=== PATIENT | female | born 1940 | race Caucasian/White ===

== ENCOUNTER → 2020-07-08 17:48 | Outpatient (CLI) | payer MEDICARE, SELFPAY ==
--- NOTE | ~2020-07-08 | DEXA_ITS ---
Bone Density Report Name: Cherie Packer Age: 79 Sex: Female Ethnicity: White Date of : 1940 Indication: postmenopausal; screening for osteoporosis; height loss; Referring Provider: Tami Reese Study: Bone densitometry was performed. Exam Date: July 08, 2020 Accession number: [id number] Bone Density: Region BMD T-score Z-score Classification AP Spine (L1-L4) 1.048 0.0 2.7 Normal Femoral Neck (Left) 0.711 -1.2 1.1 Osteopenia Total Hip (Left) 0.880 -0.5 1.6 Normal Femoral Neck (Right) 0.715 -1.2 1.1 Osteopenia Total Hip (Right) 0.887 -0.5 1.6 Normal Total Hip Mean 0.884 -0.5 1.6 Normal World Health Organization criteria for BMD impression classify patients as: Normal (T-score at or above -1.0), Osteopenia (T-score between -1.0 and -2.5), or Osteoporosis (T-score at or below -2.5). 10-year Fracture Risk(1): Major Osteoporotic Fracture 12% Hip Fracture 2.5% Reported Risk Factors: [place] (), Neck BMD=0.715, BMI=30.0 (1) FRAX(R) Version 3.08. Fracture probability calculated for an untreated patient. Fracture probability may be lower if the patient has received treatment. Clinical Information Provided by Patient: Has used the following medications: Vitamin D Patient maximum height was 63.5 Menopause Age: 49 No regular weight bearing exercise Drinks caffeinated beverages Onset of menses at age 13 Number of children 2 Impression: The patient has low bone mass, based on the Left Femoral Neck T-score. The patient has an estimated ten-year risk of hip fracture of 2.5% and an estimated ten-year risk of major fracture of 12%, based on the WHO FRAX algorithm. Discussion: BONE DENSITY IS LOW AT ONE OR MORE SKELETAL SITES. This patient's lowest T-score is low at one or more skeletal sites. It meets the World Health Organization's (WHO) criteria for ?low bone mass? (T-score between -1.0 and -2.5). The patient's 10-year risk of fracture as calculated by FRAX is less than the threshold where pharmacological therapy is recommended by the National Osteoporosis Foundation (NOF). However, all treatment decisions require clinical judgment and consideration of individual patient factors, including patient preferences, comorbidities, previous drug use, risk factors not captured in the FRAX model (e.g., frailty, falls, vitamin D deficiency, increased bone turnover, interval significant decline in bone density) and possible under or overestimation of fracture risk by FRAX. The patient should follow a healthful lifestyle (good nutrition with adequate calcium and vitamin D, and appropriate weight-bearing exercise). Follow-Up: Consider repeating this study in 2 to 3 years to reassess this patient's status, or sooner if there is some new clinical indication. Reported by: [facility] on 07/08/2020 6:4
== END ==
PROVIDERS: PCP Internal Medicine; Visit Provider Nurse Practitioner
DX: Z78.0 Asymptomatic menopausal state (principal)
CPT/HCPCS: 77080

== ENCOUNTER → 2021-07-04 10:29 | Outpatient (CLI) | payer MEDICARE, SELFPAY ==
--- NOTE | ~2021-07-04 | XR_ITS ---
EXAMINATION: XR knee RT 3V DATE: 07/04/2021 11:14 INDICATION: Right knee pain. TECHNIQUE: 3 views of right knee including standing views were obtained. COMPARISON: Right knee radiographs 11/11/2017 FINDINGS: Bone alignment is normal. No fracture. There is moderate tricompartmental osteoarthritis. T here is chondrocalcinosis of the menisci. There is a small knee joint effusion. IMPRESSION: 1. Moderate right knee osteoarthritis. 2. Small right knee joint effusion. Reviewed, dictated and finalized at location A.
== END ==
PROVIDERS: PCP Internal Medicine; Visit Provider Nurse Practitioner
DX: M25.561 Pain in right knee (principal); M17.11 Unilateral primary osteoarthritis, right knee; M25.461 Effusion, right knee
CPT/HCPCS: 73562

== ENCOUNTER → 2021-07-11 10:37 | Outpatient (CLI) | payer MEDICARE, SELFPAY ==
--- NOTE | ~2021-07-11 | XR_ITS ---
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 No significant diver ticulum. There is a small reducible sliding hiatal hernia. No stricture, mucosal fold thickening, ulceration, intraluminal mass lesion or diverticulum of the es ophagus is detected. Tertiary contractions are observed. IMPRESSION: Occasional cricopharyngeus muscle dysfunction Small reducible sliding hiatal hernia Presbyesophagus Reviewed, dictated and finalized at Location A. Reviewed, dictated and finalized at location B.
== END ==
PROVIDERS: PCP Internal Medicine; Visit Provider Nurse Practitioner
DX: R13.10 Dysphagia, unspecified (principal); M25.561 Pain in right knee; K44.9 Diaphragmatic hernia without obstruction or gangrene; K22.89 Other specified disease of esophagus
CPT/HCPCS: 74220

== ENCOUNTER 2022-02-01 08:58 | Inpatient (IN) | payer MEDICARE, SELFPAY ==
[2022-02-01] VITALS (22 sets, daily range): BP systolic 94–133; BP diastolic 42–96; PULSE 70–98; RESP 16; TEMP 36.4–36.6; O2SAT 90–100; BMI 28.5
--- NOTE | ~2022-02-01 | XR_ITS ---
XR abdomen/kub 1V DATE: 02/05/2022 09:24 INDICATION: Small bowel obstruction TECHNIQUE: Portable supine AP view on 02/05/2022 at 0912 hours COMPARISON: 02/04/2022 small bowel follow-through 02/04/2022 KUB FINDINGS: NG tube is again noted in distal stomach. There is contrast material within the colon and multiple colonic diverticula. There are gaseous diste nded small bowel segments overlying the mid upper abdomen. IMPRESSION: NG tube in distal stomach Probable adynamic ileus Diverticulosis of the colon Reviewed, dictated and finalized at Location A. Reviewed, dictated and finalized at location B. F ENGINEER'S HELPER
--- NOTE | ~2022-02-01 | XR_ITS ---
XR abdomen/kub 1V 02/02/2022 06:28 Indication: Small bowel obstruction Procedure: KUB Comparison: 02/01/2022 Findings: Decreased small bowel dilation compared with prior study. NG tube in the stomach. There is residual contrast in the bladder. There are left basilar infiltrates which may represent atelectasis or pneumonia. Impression: 1: Improved small bowel distention compared with prior studies which may represent resolving ileus or obstruction. 2: Left basilar infiltrates, atelectasis versus pneumonia. Reviewed, dictated and finalized at location A. CH INSPECTOR Impression: 1: Improved small bowel distention compared with prior studies which may repres ent resolving ileus or obstruction. 2: Left basilar infiltrates, atelectasis versus pneumonia.
--- NOTE | ~2022-02-01 | CT_ITS ---
EXAMINATION: CT abdomen pelvis w con DATE: 02/01/2022 10:00 INDICATION: Left lower quadrant pain. Nausea and vomiting. TECHNIQUE: Computed tomography (CT) of the abdomen and pelvis was performed with 100 cc Omnipaque 350 intravenous contrast. The dose-length product was 411.21 mGy-cm. Automated exposure control and iter ative reconstruction technique were employed. COMPARISON: No prior studies for comparison. . FINDINGS: Lung bases are unremarkable. Heart size normal. No significant pleural or pericardial effus ion. Small amount of free fluid in the abdomen and pelvis. The liver, spleen, pancreas, left adrenal gland are unremarkable. 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 Gallbladder is present. There is colonic diverticulosis without evidence for diverticulitis. There aren't dilated fluid-fille d hyperemic small bowel loops throughout the abdomen with air-fluid levels and mild mesenteric edema, compatible with small bowel obstruction. There is transition to normal caliber small bowel in the ri ght mid abdomen, coronal image 52. There is atherosclerosis of the aorta. No free air is identified. No lymphadenopathy. Focal fatty infiltration of the liver near the falciform ligament. Gallbladder is present. IMPRESSION: 1. Small bowel obstruction with transition in the right mid abdomen, coronal image 52. Proximal small bowel is dilated, hyperemic with air-fluid levels. 2: Small amount of free fluid in the abdomen and pelvis. Reviewed, dictated and finalized at location A. ETL DEVELOPER IMPRESSION: 1. Small bowel obstruction with transition in the right mid abdomen, coronal im age 51. Proximal small bowel is dilated, hyperemic with air-fluid levels. 2: Small amount of free fluid in the abdomen and pelvis.
--- NOTE | ~2022-02-01 | XR_ITS ---
EXAMINATION: XR abdomen/kub 1V DATE: 02/04/2022 06:22 INDICATION: Small bowel obstruction TECHNIQUE: A supine view of the abdomen on 2 radiographs was obtained. COMPARISON: 02/03/2022 FINDINGS: Nasogastric tube tip in proximal side port in the stomach. Small amount of bowel gas scattered throug hout the abdomen and pelvis. Lung bases are clear. Mild lumbar levocurvature with moderate spondylosi s. IMPRESSION: 1. Nonspecific bowel gas pattern with small amounts of bowel gas scattered throughout the abdomen and pelvis. No dilated loops of gas-filled bowel. Reviewed, dictated and finalized at location A. ANIC/WELDER IMPRESSION: 1. Nonspecific bowel gas pattern with small amounts of bowel gas scattered thro ughout the abdomen and pelvis. No dilated loops of gas-filled bowel.
--- NOTE | ~2022-02-01 | XR_ITS ---
EXAMINATION: XR abdomen/kub 1V INDICATION: Small bowel obstruction TECHNIQUE: Supine views of the abdomen were obtained on 2 radiographs. COMPARISON: 02/05/2022 FINDINGS: The nasogastric tube is in the stomach. No definitely dilated loops of bowel are identified . Enteric contrast material is seen in the colon and in multiple colonic diverticula. IMPRESSION: 1. No definite dilated bowel identified. Reviewed, dictated and finalized at location A. LE VALVE OPERATOR
--- NOTE | ~2022-02-01 | XR_ITS ---
XR abdomen NG/feed tube rechec, XR abdomen NG/feed tube insert INDICATION: Evaluate NG tube position. TECHNIQUE: Limited KUB perform for evaluating NG tube . COMPARISON: 02/01/2022 FINDINGS: NG tube tip in the stomach. Visualized bowel gas pattern is unremarkable.No dilated small bowel, consistent with obstruction. Lung bases are unremarkable. IMPRESSION: 1: NG tube tip in the stomach. 2: Small bowel obstruction. Reviewed, dictated and finalized at location A. TAL MARKETING CONSULTANT IMPRESSION: 1: NG tube tip in the stomach. 2: Small bowel obstruction.
--- NOTE | ~2022-02-01 | XR_ITS ---
XR abdomen/kub 1V INDICATION: Evaluate NG tube position. TECHNIQUE: Limited KUB perform for evaluating NG tube . COMPARISON: 02/02/2022 FINDINGS: NG tube tip in the distal aspect of the stomach. Visualized bowel gas pattern is unremarka ble.Lung bases are unremarkable. IMPRESSION: 1: NG tube tip in the distal aspect of the stomach. Reviewed, dictated and finalized at location A. R FLOOR
--- NOTE | ~2022-02-01 | XR_ITS ---
SMALL BOWEL SERIES ONLY INDICATION: TECHNIQUE: Serial plain films and fluoroscopic spot films are performed following NG tube administrat ion of Gastrografin. COMPARISON: 02/04/2022 FINDINGS: Contrast was followed sequentially through the small bowel. The mucosal pattern is unremar kable. There are small bowel diverticula of the proximal small bowel. Small bowel pattern is consiste nt throughout without focal dilation or transition point. There is delayed transit of contrast to the colon of 4 hours.. IMPRESSION: 1: Nondilated uniform appearance to the small bowel with slow transit to the colon of 4 hours, ashish tible with ileus. Reviewed, dictated and finalized at location A. ECTOR PLATING IMPRESSION: 1: Nondilated uniform appearance to the small bowel with slow transit to the c olon of 4 hours, compatible with ileus.
[2022-02-01 09:22] LABS: Basophils Percent Auto 0.2 % (0.2-1.2); Eosinophils Absolute Auto 0.1 K/mm3 (0-0.3); Eosinophils Percent Auto 0.5 % (0-4.4); Hemoglobin 11.5 g/dL (12.0-15.0); Immature Granulocyte Percent A 0.8 % (0-0.5); Lymphocytes Absolute Auto 1.21 K/mm3 (0.9-3.2); Lymphocytes Percent Auto 9.8 % (18.3-44.2); Mean Corpuscular HGB Conc 32.9 g/dl (32-36); Mean Corpuscular Hemoglobin 28.5 pg (26-34); Mean Corpuscular Volume 86.8 fl (80-100); Mean Platelet Volume 10.6 fl (7.4-10.4); Monocytes Absolute Auto 0.5 K/mm3 (0.1-0.6); Monocytes Percent Auto 3.8 % (2.6-8.5); Neutrophils Absolute Auto 10.5 K/mm3 (1.3-6.7); Neutrophils Percent Auto 84.9 % (45.5-73.1); Platelet Count Result 278 k/mm3 (150-375); Red Blood Count 4.03 M/mm3 (4.2-5.4); Red Cell Distribution Width 13.2 % (11.5-14.5); White Blood Count 12.3 K/mm3 (4.5-10.0)
--- NOTE | 2022-02-01 09:24 | ED.ABDPAIN ---
HPI - Abdominal Pain General Chief Complaint: Abdominal Pain <SPEEDY Casarez Last Filed: 02/01/22 12:40> Stated Complaint: Abdominal pain, nausea <SPEEDY Casarez Last Filed: 02/01/22 12:40> Time Seen by Provider: 02/01/22 09:04 <SPEEDY Casarez Last Filed: 02/01/22 12:40> Source: patient <SPEEDY Casarez Last Filed: 02/01/22 12:40> Mode of arrival: ambulatory <SPEEDY Casarez Last Filed: 02/01/22 12:40> Limitations: no limitations <SPEEDY Casarez Last Filed: 02/01/22 12:40> History of Present Illness HPI narrative: Patient is an 81-year-old female who presents the ED with report of left-sided abdominal pain. Patient reports the pain began on Wednesday afternoon. She had nausea and vomiting and subjective fevers that day. She has had a decreased appetite and nausea and dry heaving since then. She tried taking TUMS w/o relief. She also reports constipation. She states it has been 1 week since she last had a bowel movement. She typically has a bowel movement every other day. She denies any rectal bleeding, urinary symptoms, cough, cold sx's, CP, SOB. <SPEEDY Casarez Last Filed: 02/01/22 12:40> Related Data Home Medications: Home Medications Medication Instructions Recorded Confirmed latanoprost 0.005 % eye drops 1 drop ophthalmic (eye) QPM 11/15/19 07/04/21 <SPEEDY Casarez Last Filed: 02/01/22 12:40> Allergies/Adverse Reactions: Allergies Allergy/AdvReac Type Severity Reaction Status Date / Time No Known Allergies Allergy Verified 07/14/21 08:52 <SPEEDY Casarez Last Filed: 02/01/22 12:40> Review of Systems Review of Systems: CONSTITUTIONAL: Denies fever, chills, or sweats. ENT: Denies rhinorrhea, congestion, sore throat. CARDIOVASCULAR: Denies chest pain. RESPIRATORY: Denies cough or dyspnea. GASTROINTESTINAL: Reports left-sided abdominal pain, nausea, vomiting, constipation. Denies rectal bleeding, diarrhea. GENITOURINARY: Denies dysuria or hematuria. 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 <Therese Langley PA-C - Last Filed: 02/01/22 12:40> Surgical History Surgical History: Surgical History (Updated 02/01/22 @ 09:30 by Therese Langley PA-C) No pertinent past surgical history <Therese Langley PA-C - Last Filed: 02/01/22 12:40> Family History Family History: Family History Mother Patient's mother is in good health Sibling Patient's sister is in good health Patient's brother is in good health Father Patient's father is <Therese Langley PA-C - Last Filed: 02/01/22 12:40> Social History Social History: Social History Smoking status: Never smoker Second hand tobacco smoke exposure: Yes Alcohol intake: never <Therese Langley PA-C - Last Filed: 02/01/22 12:40> Exam Narrative: GENERAL: Well appearing, well-nourished, non-toxic, in mild acute distress. HEAD: Normocephalic, atraumatic. NECK: Supple. No adenopathy, no masses. RESPIRATORY: Airway patent, respirations nonlabored. Clear to auscultation bilaterally, no rales, rhonchi, wheezing. CARDIOVASCULAR: Regular rate and rhythm, +murmur. Radial pulses 2+ and equal bilaterally. ABDOMINAL: Soft, diffuse tenderness to palp
[2022-02-01] MEDS: ONDANSETRON INJ 4 MG/2 ML VIAL IV PUSH ×2 (09:33→19:36)
[2022-02-01] MEDS: SODIUM CHLORIDE 0.9% IV 1,000 ML 999 ML IV CONT ×2 (09:33→10:58)
[2022-02-01 09:34] LABS: Alanine Aminotransferase 14 U/L (6-35); Albumin Level 4.2 g/dL (3.5-5.1); Alkaline Phosphatase 46 U/L (38-126); Anion Gap 10 mmol/L (8-16); Aspartate Amino Transferase 31 U/L (14-36); Bilirubin,Total 1.4 mg/dL (0.2-1.3); Blood Urea Nitrogen 29 mg/dL (7-17); Calcium 9.3 mg/dL (8.4-10.2); Carbon Dioxide 25 mmol/L (22-30); Chloride 101 mmol/L (98-107); Estimated CRCL calculation 29 ml/min; Estimated Glomerular Filt Rate 43; Glucose 172 mg/dL (65-110); Lipase 98 U/L (23-300); Potassium 4.3 mmol/L (3.4-5.0); Sodium 136 mmol/L (137-145)
[2022-02-01 10:18] LABS: Influenza A QL RT-PCR Negative (Negative); Influenza B QL RT-PCR Negative (Negative); SARS-CoV-2 RNA PCR Negative
[2022-02-01 11:00] LABS: Lactic Acid Reflex 1.1 mmol/L (0.7-2.0)
--- NOTE | 2022-02-01 12:53 | PM.IMHP ---
H&P: HPI History of Present Illness Date/Time: 02/01/22 12:53 Chief Complaint: Abdominal pain Narrative: This is an 81-year-old female patient who came to the emergency room with complaints of left-sided abdominal pain this pain started approximately Wednesday afternoon. She also had nausea and vomiting and subjective fevers that day. She is been having a decreased appetite with nausea and vomiting since then. She tried taking some Tums without relief. The patient stated that her abdomen was distended. The patient stated his been 1 week since she last had a bowel movement. She typically has a bowel movement every day. She denies any rectal bleeding at this time. Her white count is 12.3. H&H 11.5 and 35.0. Her BUN is 29 creatinine is 1.2. GFR is 43 with a baseline around 55. Her glucose is 172 today. Last A1c was 6.8 on 07/01/2021. The patient was found to be negative for influenza a B and COVID. An NG-tube was placed in the right nares. Abdominal pelvis CT was read as follows1. Small bowel obstruction with transition in the right mid abdomen, coronal image 52. Proximal small bowel is dilated, hyperemic with air-fluid levels. 2: Small amount of free fluid in the abdomen and pelvis. Surgery has been consulted. The patient initially who was placed in observation and then changed inpatient status on the date of service of 02/01/2022. Review of Systems Review of Systems: See HPI All systems reviewed & are unremarkable except as noted in HPI and below Constitutional: Constitutional: Reports as per HPI and Reports no additional constitutional complaints Eyes: Eyes: Reports as per HPI and Reports no additional eye complaints ENT: Reports system reviewed and no additional complaints, except as documented and Reports Normal hearing present Cardiovascular: Cardiovascular: Reports no additional cardiovascular complaints Respiratory: Respiratory: Reports no additional respiratory complaints and Reports no additional respiratory complaints Gastrointestinal: Gastrointestinal: Reports as per HPI and Reports no additional gastrointestinal complaints Musculoskeletal: Musculoskeletal: Reports no additional musculoskeletal complaints Integumentary/Breasts: Skin/Breast: Reports system reviewed and no additional complaints, except as docu and Reports as per HPI Neurologic: Reports system reviewed and no additional complaints, except as documented, Reports as per HPI and Reports Normal hearing present Psychiatric: Psychiatric: Reports no additional psychiatric complaints and Reports as per HPI Endocrine: Endocrine: Reports no additional endocrine complaints Hematologic/Lymphatic: Hematologic/Lymphatic: Reports no additional hematologic/lymphatic complaints Allergic/Immunologic: Allergic/Immunologic: Reports no additional allergic/immunologic complaints [facility] Past Medical History Medical History (Updated 02/01/22 @ 16:59 by Halina Kc NP) Chronic kidney disease, stage III (moderate) Diabetic retinopathy Essential hypertension Glaucoma of right eye Heart murmur Macular degeneration, 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 She has 2 children. 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 She is . She is a lifelong nonsmoker. She does not use any alcohol marijuana illicit drugs. Her children are the d
--- NOTE | 2022-02-01 13:45 | ADMGEN ---
This patient, Cherie Pcaker, was admitted to Medical Room 343-01. Patient/family oriented to hospital policies and general routines including ID bracelet, bed and alarms, visiting hours, pain management, procedures, bathroom and other care routines, personal items, smoking policy, room service/diet, and visiting hours. Information on how to activate the Rapid Response Team has been discussed. Patient/Family are encouraged to report perceived risks to care and to ask questions if they do not understand what they are told or what they should do.
--- NOTE | 2022-02-01 15:28 | PM.CNGS ---
Assessment and Plan Assessment and plan (1) Small bowel obstruction: Code(s): K56.609 - Unspecified intestinal obstruction, unspecified as to partial versus complete obstruction Status: Acute Assessment and Plan: patient seems to be improving right away with NG tube placement. Recommend continue NG suction, NPO except ice chips, serial exam, labs, KUB. Hopefully will resolve without surgery. 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: Qualifiers: Diabetes mellitus buttermaker insulin use: without longterm use Diabetic retinopathy severity: with unspecified retinopathy severity Laterality: unspecified laterality Qualified Code(s): E11.311 - Type 2 diabetes mellitus with unspecified diabetic retinopathy with macular edema Code(s): E11.311 - Type 2 diabetes mellitus with unspecified diabetic retinopathy with macular edema Status: Acute (3) Essential hypertension: Code(s): I10 - Essential (primary) hypertension Status: Acute (4) Chronic kidney disease, stage III (moderate): Qualifiers: Chronic kidney disease stage 3 subtype: unspecified whether 3a or 3b Qualified Code(s): N18.30 - Chronic kidney disease, stage 3 unspecified Code(s): N18.30 - Chronic kidney disease, stage 3 unspecified Status: Acute History of Present Illness Consult details Consult date: 02/02/22 Reason for consult: abdominal pain Requesting physician: Therese Langley PA-C Narrative: Patient is an 81-year-old woman with no history of prior abdominal surgery who came to the emergency room today with a 2 day history of left-sided abdominal pain. The day the pain started she had pretty severe pain associated with nausea and vomiting. She has not had a bowel movement in about 1 week. She continued to have pain as well as dry heaves. She came to the emergency room where [place] [id number]. She had a diffuse abdominal pain but more so in the left lower quadrant. She had a CT scan of the abdomen and pelvis that showed small-bowel obstruction with transition point in the right mid abdomen. She had a nasogastric tube placed in the emergency room and had much improvement since that time. She is seen now in consultation regarding small-bowel obstruction. Review of Systems Review of Systems: All systems reviewed & are unremarkable except as noted in HPI and below ( HPI those items noted below) Constitutional: Constitutional: Reports as per HPI, Reports anorexia, Denies chills, Denies fever(s) and Reports poor appetite Cardiovascular: Cardiovascular: Denies chest pain, Denies diaphoresis, Denies dyspnea and Denies paroxysmal nocturnal dyspnea Respiratory: Respiratory: Denies chest congestion, Denies cough and Denies dyspnea Gastrointestinal: Gastrointestinal: Reports as per HPI, Reports abdominal pain, Reports constipation, Reports GI cramping, Reports nausea and Reports vomiting Integumentary/Breasts: Skin/Breast: Denies lesions and Denies rash PMFSH Past Medical History Medical History (Updated 02/01/22 @ 16:59 by Halina Kc NP) Chronic kidney disease, stage III (moderate) Diabetic retinopathy Essential hypertension Glaucoma of right eye Heart murmur Macular degeneration, 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
[2022-02-01] MEDS: SODIUM CHLORIDE 0.9% IV 1,000 ML 100 ML IV CONT (17:06)
[2022-02-01] MEDS: ENOXAPARIN 40 MG/0.4 ML SYRINGE SUB-Q (17:06)
[2022-02-01] MEDS: PHENOL/SOD PHENO SPRAY CHERRY (*BKC) 1 SPRAY MUCOUS MEM (17:12)
[2022-02-01 17:47] LABS: Glucose Point of Care 76 mg/dl (65-105)
[2022-02-01] MEDS: LATANOPROST 0.005% OP SOLN 2.5 ML BTL 1 DROP EACH EYE (18:10)
[2022-02-01 19:51] LABS: Appearance Urine Slightly Cloudy (Clear); Bilirubin Urine Negative (Negative); Blood Urine Negative (Negative); Color Urine Yellow (Yellow); Glucose Urine UA Negative (Negative); Ketones Urine Trace mg/dL (Negative); Leukocyte Esterase Ur Negative LEU/UL (Negative); Nitrate Urine Negative (Negative); Protein Urine 1+ mg/dL (Negative); Urobilinogen Urine 0.2 mg/dL (<2.0); pH Urine 5.5 (5.0-9.0)
[2022-02-01 19:55] LABS: Add Urine Microscopic? YES; Bacteria Urine Trace /hpf; Mucus Urine Rare /lpf; Squamous Epithelial Cell Urine Occasional /hpf (Few)
[2022-02-01] MEDS: fentaNYL CITRATE INJ (*CRX) 100 MCG/2 ML VIAL 12.5 MCG IV PUSH (21:10)
[2022-02-02 00:31] LABS: Glucose Point of Care 111 mg/dl (65-105)
[2022-02-02] MEDS: SODIUM CHLORIDE 0.9% IV 1,000 ML 100 ML IV CONT ×3 (02:48→23:26)
[2022-02-02 06:00] VITALS: BP 119/46; PULSE 90; RESP 18; TEMP 36.6; O2SAT 93
[2022-02-02 06:21] LABS: Hematocrit 32.5 % (37.0-47.0); Hemoglobin 10.7 g/dL (12.0-15.0); Mean Corpuscular HGB Conc 32.9 g/dl (32-36); Mean Corpuscular Hemoglobin 29.5 pg (26-34); Mean Corpuscular Volume 89.5 fl (80-100); Mean Platelet Volume 10.9 fl (7.4-10.4); Platelet Count Result 243 k/mm3 (150-375); Red Blood Count 3.63 M/mm3 (4.2-5.4); Red Cell Distribution Width 13.4 % (11.5-14.5); White Blood Count 6.2 K/mm3 (4.5-10.0)
[2022-02-02 06:30] LABS: Glucose Point of Care 110 mg/dl (65-105)
[2022-02-02 06:35] LABS: Anion Gap 8 mmol/L (8-16); Blood Urea Nitrogen 23 mg/dL (7-17); Calcium 8.4 mg/dL (8.4-10.2); Carbon Dioxide 25 mmol/L (22-30); Chloride 103 mmol/L (98-107); Estimated CRCL calculation 32 ml/min; Estimated Glomerular Filt Rate 48; Glucose 105 mg/dL (65-110); Magnesium 1.2 mg/dL (1.6-2.3); Phosphorus 3.8 mg/dL (2.5-4.5); Potassium 3.5 mmol/L (3.4-5.0); Sodium 136 mmol/L (137-145)
[2022-02-02 07:17] LABS: Thyroid Stimulating Hormone Reflex 0.876 uIU/mL (0.465-4.68)
[2022-02-02] MEDS: fentaNYL CITRATE INJ (*CRX) 100 MCG/2 ML VIAL 25 MCG IV PUSH (08:37)
[2022-02-02] MEDS: ENOXAPARIN 40 MG/0.4 ML SYRINGE SUB-Q (08:44)
[2022-02-02 08:45] VITALS: O2SAT 95
[2022-02-02 08:48] LABS: Glucose Point of Care 103 mg/dl (65-105)
[2022-02-02 10:33] LABS: Hemoglobin A1C 6.5 % (<5.7)
[2022-02-02 12:07] LABS: Glucose Point of Care 116 mg/dl (65-105)
--- NOTE | 2022-02-02 12:30 | PM.IMPN ---
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 Hypoglycemic protocol. Continue to trend Adjust therapy as indicated (3) Essential hypertension: Code(s): I10 - Essential (primary) hypertension Status: Acute Assessment and Plan: BP stable at 119/46 p.r.n. hydralazine. lisinopril is on hold as she is NPO Trend BP Adjust therapy as indicted (4) Diabetic retinopathy: Code(s): E11.319 - Type 2 diabetes mellitus with unspecified diabetic retinopathy without macular edema Status: Acute Assessment and Plan: Follows with specialist outpatient (5) Glaucoma of right eye: Code(s): H40.9 - Unspecified glaucoma Status: Acute Assessment and Plan: -continue with latanoprost (6) Acute on chronic renal failure: Code(s): N17.9 - Acute kidney failure, unspecified; N18.9 - Chronic kidney disease, unspecified Status: Acute Assessment and Plan: Continue IV fluids Slight elevated but at baseline Current cr 1.10 Continue to trend labs Adjust therapy as indicated Time Spent With Patient Time with patient: Greater than 35 minutes Subjective Date/time seen: 02/02/22 12:30 Interval history: 02/02/22 1230 Patient is doing ok. She did state that she is having some pain in her left upper abdomen. She is also firm and distended. She stated that she did not think the NG tube was helping. She claimed her pain was a 5/10. She is also guarding with her hand. She denies any chest pain, shortness of breath, nausea, vomiting. She did state that she was having some gas yesterday, but none today. 02/01/22? 12:53 This is an 81-year-old female patient who came to the emergency room with complaints of left-sided abdominal pain this pain started approximately Wednesday afternoon.? She also had nausea and vomiting and subjective fevers that day.? She is been having a decreased appetite with nausea and vomiting since then.? She tried taking some Tums without relief.? The patient stated that her abdomen was distended.? The patient stated his been 1 week since she last had a bowel movement.? She typically has a bowel movement every day.? She denies any rectal bleeding at this time.? Her white count is 12.3.? H&H 11.5 and 35.0.? Her BUN is 29 creatinine is 1.2.? GFR is 43 with a baseline around 55.? Her glucose is 172 today.? Last A1c was 6.8 on 07/01/2021.? The patient was found to be negative for influenza a B and COVID.? An NG-tube was placed in the right nares.? Abdominal pelvis CT was read as follows1. Small bowel obstruction with transition in the right mid abdomen, coronal image 52. Proximal small bowel is dilated, hyperemic with air-flu
--- NOTE | 2022-02-02 12:30 | P.PNIM_ITS ---
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 * Hypoglycemic protocol. * Continue to trend * Adjust therapy as indicated (3) Essential hypertension: Code(s): I10 - Essential (primary) hypertension Status: Acute Assessment and Plan: * BP stable at 119/46 * p.r.n. hydralazine. * lisinopril is on hold as she is NPO * Trend BP * Adjust therapy as indicted (4) Diabetic retinopathy: Code(s): E11.319 - Type 2 diabetes mellitus with unspecified diabetic retinopathy without macular edema Status: Acute Assessment and Plan: Follows with specialist outpatient (5) Glaucoma of right eye: Code(s): H40.9 - Unspecified glaucoma Status: Acute Assessment and Plan: -continue with latanoprost (6) Acute on chronic renal failure: Code(s): N17.9 - Acute kidney failure, unspecified; N18.9 - Chronic kidney disease, unspecified Status: Acute Assessment and Plan: * Continue IV fluids * Slight elevated but at baseline * Current cr 1.10 * Continue to trend labs * Adjust therapy as indicated Time Spent With Patient Time with patient: Greater than 35 minutes Subjective Date/time seen: 02/02/22 12:30 Interval history: 02/02/22 1230 Patient is doing ok. She did state that she is having some pain in her left upper abdomen. She is also firm and distended. She stated that she did not think the NG tube was helping. She claimed her pain was a 5/10. She is also guarding with her hand. She denies any chest pain, shortness of breath, nausea, vomiting. She did state that she was having some gas yesterday, but none today. 02/01/22? 12:53 This is an 81-year-old female patient who came to the emergency room with complaints of left-sided abdominal pain this pain started approximately Wednesday afternoon.? She also had nausea and vomiting and subjective fevers that day.? She is been having a decreased appetite with nausea and vomiting since then.? She tried taking some Tums without relief.? The patient stated that her abdomen was distended.? The patient stated his been 1 week since she last had a bowel movement.? She typically has a bowel
--- NOTE | 2022-02-02 13:46 | PM.PNGS ---
Progress Note: A&P Assessment and Plan (1) Small bowel obstruction: Code(s): K56.609 - Unspecified intestinal obstruction, unspecified as to partial versus complete obstruction Status: Acute Assessment and Plan: Pain is better but still has some tenderness. Large amount of NG tube output. Continue NG suction IV fluids and p.r.n. analgesics. Will follow with serial exam and labs as well as another KUB tomorrow morning. Hopefully will resolve without surgery. Subjective Subjective Date/Time Seen: 02/02/22 13:46 Patient reports: feels better, pain is less, no flatus and no bowel movement Review of Systems Review of Systems: All systems reviewed & are unremarkable except as noted in HPI and below (HPI and those items noted below) Constitutional: Constitutional: Denies chills and Denies fever(s) Cardiovascular: Cardiovascular: Denies chest pain, Denies diaphoresis, Denies dyspnea and Denies paroxysmal nocturnal dyspnea Respiratory: Respiratory: Denies chest congestion, Denies cough and Denies dyspnea Integumentary/Breasts: Skin/Breast: Denies lesions and Denies rash Exam Const: General: comfortable and no acute distress; No confusion Orientation/consciousness: patient oriented x3 and No confusion GI: Inspection: distended, no scars and no visible herniation GI Palp: Yes Soft to palpation, Yes Tenderness to palpation present (GI) (Hypogastric area tender although some tenderness throughout the abdomen.), No Guarding due to palpation present (GI), No Hernia present, No Palpable mass present and No Rebound tenderness present Auscultation: absent bowel sounds Neuro: General: patient oriented x3, no focal motor deficits and No confusion Extrem: General: no calf tenderness and no edema Psych: Affect: normal affect Insight: Good insight present (Psych) Judgement: Good judgement present (Psych) Objective Data Vital Signs Vital Signs: Vital Signs - 24 hr 02/01/22 14:12 02/01/22 14:00 02/01/22 22:00 Temperature 36.6 C 36.6 C Pulse Rate 70 70 90 Respiratory Rate 16 16 16 Blood Pressure 101/54 L 121/55 L Pulse Oximetry 100 100 98 Oxygen Delivery Room Air 02/02/22 06:00 Temperature 36.6 C Pulse Rate 90 Respiratory Rate 18 Blood Pressure 119/46 L Pulse Oximetry 93 Oxygen Delivery Intake/Output Intake/Output: Intake & Output 01/30/22 01/31/22 02/01/22 02/02/22 23:59 23:59 23:59 23:59 Intake Total 2100 2000 Output Total 300 1000 Balance 1800 1000 Meds/Results Medications: Active Medications Generic Name Dose Route Start Last Admin Trade Name Freq PRN Reason Stop Dose Admin Dextrose 12.5 gm 02/01/22 16:01 Dextrose 50% 25 Gm/50 Ml Syringe IV PUSH PRN PRN Hypoglycemia Protocol Enoxaparin Sodium 40 mg 02/02/22 09:00 02/02/22 08:44 Enoxaparin 40 Mg/0.4 Ml Syringe SUB-Q 40 mg DAILY ANGEL Administration Fentanyl Citrate 12.5 mcg 02/01/22 15:42 02/01/22 21:10 Fentanyl Citrate Inj (*Crx) 100 Mcg/2 Ml Vial IV PUSH 12.5 mcg Q2H PRN Administration Pain Rated 4-6 Fentanyl Citrate 25 mcg 02/01/22 15:42 02/02/22 08:37 Fentanyl Citrate Inj (*Crx) 100 Mcg/2 Ml Vial IV PUSH 25 mcg Q2H PRN Administration Pain Rated 7-10 Glucagon 1 mg 02/01/22 16:01 Glucagon For Inj 1 Mg Vial IM PRN PRN Hypoglycemia Protocol Glucose 15 gm 02/01/22 16:01 Glucose Oral Gel 15 Gm Of Glucse In 37.5 Gm Tube PO PRN PRN Hypoglycemia Protocol Hydralazine HCl 10 mg 02/01/22 16:52 Hydralazine Hcl 20 Mg/Ml Vial IV PUSH Q8H PRN Blood Pressure - High Dextrose 1,000 mls @ 100 mls/hr 02/01/22 16:01 Dextrose 5% 1,000 Ml IVPB PRN PRN Hypoglycemia Protocol Sodium Chloride 1,000 mls @ 100 mls/hr 02/01/22 16:45 02/02/22 13:12 Normal Saline Iv IV CONT 100 mls/hr .Q10H ANGEL Administration Insulin Aspart 2 - 5 units 02/01/22 18:00 02/02/22 13:09 Insulin Aspa
[2022-02-02 14:00] VITALS: BP 125/72; PULSE 86; RESP 16; TEMP 37.1; O2SAT 95
[2022-02-02] MEDS: LATANOPROST 0.005% OP SOLN 2.5 ML BTL 1 DROP EACH EYE (17:11)
[2022-02-02 18:49] LABS: Glucose Point of Care 109 mg/dl (65-105)
[2022-02-02 21:38] VITALS: BP 120/77; PULSE 88; RESP 20; TEMP 36.6; O2SAT 99
[2022-02-02 23:39] LABS: Glucose Point of Care 118 mg/dl (65-105)
[2022-02-02 23:39] LABS: Glucose Point of Care 122 mg/dl (65-105)
[2022-02-03 05:37] LABS: Basophils Percent Auto 0.4 % (0.2-1.2); Eosinophils Absolute Auto 0.1 K/mm3 (0-0.3); Eosinophils Percent Auto 1.5 % (0-4.4); Hemoglobin 10.5 g/dL (12.0-15.0); Immature Granulocyte Absolute 0.02 K/mm3 (0.00-0.031); Immature Granulocyte Percent A 0.4 % (0-0.5); Lymphocytes Absolute Auto 0.92 K/mm3 (0.9-3.2); Lymphocytes Percent Auto 19.4 % (18.3-44.2); Mean Corpuscular HGB Conc 32.8 g/dl (32-36); Mean Corpuscular Hemoglobin 28.7 pg (26-34); Mean Corpuscular Volume 87.4 fl (80-100); Mean Platelet Volume 10.2 fl (7.4-10.4); Monocytes Absolute Auto 0.4 K/mm3 (0.1-0.6); Monocytes Percent Auto 7.6 % (2.6-8.5); Neutrophils Absolute Auto 3.4 K/mm3 (1.3-6.7); Neutrophils Percent Auto 70.7 % (45.5-73.1); Platelet Count Result 228 k/mm3 (150-375); Red Blood Count 3.66 M/mm3 (4.2-5.4); Red Cell Distribution Width 13.1 % (11.5-14.5); White Blood Count 4.8 K/mm3 (4.5-10.0)
[2022-02-03 05:47] LABS: Alanine Aminotransferase 9 U/L (6-35); Alkaline Phosphatase 40 U/L (38-126); Anion Gap 6 mmol/L (8-16); Aspartate Amino Transferase 15 U/L (14-36); Bilirubin,Total 0.5 mg/dL (0.2-1.3); Blood Urea Nitrogen 24 mg/dL (7-17); Calcium 8.1 mg/dL (8.4-10.2); Carbon Dioxide 28 mmol/L (22-30); Chloride 103 mmol/L (98-107); Estimated CRCL calculation 35 ml/min; Estimated Glomerular Filt Rate 53; Glucose 117 mg/dL (65-110); Magnesium 1.3 mg/dL (1.6-2.3); Potassium 3.4 mmol/L (3.4-5.0); Sodium 137 mmol/L (137-145)
[2022-02-03 05:52] VITALS: BP 125/58; PULSE 72; RESP 16; TEMP 36.7; O2SAT 98
--- NOTE | 2022-02-03 07:17 | PM.PNGS ---
Progress Note: A&P Assessment and Plan (1) Small bowel obstruction: Code(s): K56.609 - Unspecified intestinal obstruction, unspecified as to partial versus complete obstruction Status: Acute Assessment and Plan: much improved on plain films and pain is gone but abdomen paradichlorobenzene tender. Only passing flatus. Continue NG suction, IV fluids, analgesics, serial exams and lab work with daily plain films. Subjective Subjective Date/Time Seen: 02/03/22 07:17 Patient reports: pain is less ( no abdominal pain but abdomen paradichlorobenzene tender.), flatus, no bowel movement and afebrile Review of Systems Review of Systems: All systems reviewed & are unremarkable except as noted in HPI and below ( HPI and those items noted below) Constitutional: Constitutional: Denies chills and Denies fever(s) Cardiovascular: Cardiovascular: Denies chest pain, Denies diaphoresis, Denies dyspnea and Denies paroxysmal nocturnal dyspnea Respiratory: Respiratory: Denies chest congestion, Denies cough and Denies dyspnea Integumentary/Breasts: Skin/Breast: Denies lesions and Denies rash Exam Const: General: comfortable and no acute distress; No confusion Orientation/consciousness: patient oriented x3 and No confusion GI: Inspection: distended GI Palp: Yes Soft to palpation, Yes Tenderness to palpation present (GI), No Guarding due to palpation present (GI) and No Rebound tenderness present Auscultation: Hypoactive bowel sounds present Neuro: General: patient oriented x3, no focal motor deficits and No confusion Extrem: General: no calf tenderness and no edema Psych: Affect: normal affect Insight: Good insight present (Psych) Judgement: Good judgement present (Psych) Objective Data Vital Signs Vital Signs: Vital Signs - 24 hr 02/02/22 14:00 02/02/22 08:45 02/02/22 21:38 Temperature 37.1 C 36.6 C Pulse Rate 86 88 Respiratory Rate 16 20 Blood Pressure 125/72 120/77 Pulse Oximetry 95 95 99 Oxygen Delivery Room Air 02/03/22 05:52 Temperature 36.7 C Pulse Rate 72 Respiratory Rate 16 Blood Pressure 125/58 L Pulse Oximetry 98 Oxygen Delivery Intake/Output Intake/Output: Intake & Output 01/31/22 02/01/22 02/02/22 02/03/22 23:59 23:59 23:59 23:59 Intake Total 2100 3000 Output Total 300 1950 Balance 1800 1050 Meds/Results Medications: Active Medications Generic Name Dose Route Start Last Admin Trade Name Freq PRN Reason Stop Dose Admin Dextrose 12.5 gm 02/01/22 16:01 Dextrose 50% 25 Gm/50 Ml Syringe IV PUSH PRN PRN Hypoglycemia Protocol Enoxaparin Sodium 40 mg 02/02/22 09:00 02/02/22 08:44 Enoxaparin 40 Mg/0.4 Ml Syringe SUB-Q 40 mg DAILY ANGEL Administration Fentanyl Citrate 12.5 mcg 02/01/22 15:42 02/01/22 21:10 Fentanyl Citrate Inj (*Crx) 100 Mcg/2 Ml Vial IV PUSH 12.5 mcg Q2H PRN Administration Pain Rated 4-6 Fentanyl Citrate 25 mcg 02/01/22 15:42 02/02/22 08:37 Fentanyl Citrate Inj (*Crx) 100 Mcg/2 Ml Vial IV PUSH 25 mcg Q2H PRN Administration Pain Rated 7-10 Glucagon 1 mg 02/01/22 16:01 Glucagon For Inj 1 Mg Vial IM PRN PRN Hypoglycemia Protocol Glucose 15 gm 02/01/22 16:01 Glucose Oral Gel 15 Gm Of Glucse In 37.5 Gm Tube PO PRN PRN Hypoglycemia Protocol Hydralazine HCl 10 mg 02/01/22 16:52 Hydralazine Hcl 20 Mg/Ml Vial IV PUSH Q8H PRN Blood Pressure - High Dextrose 1,000 mls @ 100 mls/hr 02/01/22 16:01 Dextrose 5% 1,000 Ml IVPB PRN PRN Hypoglycemia Protocol Sodium Chloride 1,000 mls @ 100 mls/hr 02/01/22 16:45 02/02/22 23:26 Normal Saline Iv IV CONT 100 mls/hr .Q10H ANGEL Administration Insulin Aspart 2 - 5 units 02/01/22 18:00 02/03/22 00:00 Insulin Aspart (*Bkc) 100 Units/Ml SUB-Q Not Given Q6HR [facility] Protocol Latanoprost 1 drop 02/01/22 18:00 02/02/22 17:11 Latanoprost 0.005% Op Soln 2.5 Ml Btl EACH EYE 1
[2022-02-03] MEDS: MAGNESIUM SULF 4 GM/WATER100ML 4 GM/100 ML BAG IVPB (08:47)
[2022-02-03] MEDS: ENOXAPARIN 40 MG/0.4 ML SYRINGE SUB-Q (08:47)
--- NOTE | 2022-02-03 10:45 | P.PNIM_ITS ---
Progress Note: A&P Assessment and Plan (1) Small bowel obstruction: Code(s): K56.609 - Unspecified intestinal obstruction, unspecified as to partial versus complete obstruction Status: Acute Assessment and Plan: * CT of the abdomen showed small bowel obstruction in the right mid abdomen, small amount of free fluid in the abdomen and pelvis * NG tube present continues to drain a dark brown fluid * KUB showed slight improvement 02/02/22 * IV fluids continue * NPO status with ice chips * Trend intake and output * General surgery on board * Pain medication antiemetics on board * Small bowel follow through scheduled for tomorrow 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 * Hypoglycemic protocol. * Continue to trend * Adjust therapy as indicated (3) Essential hypertension: Code(s): I10 - Essential (primary) hypertension Status: Acute Assessment and Plan: * BP stable at 125/58 * p.r.n. hydralazine. * lisinopril is on hold as she is NPO * Trend BP * Adjust therapy as indicted (4) Diabetic retinopathy: Code(s): E11.319 - Type 2 diabetes mellitus with unspecified diabetic retinopathy without macular edema Status: Acute Assessment and Plan: Follows with specialist outpatient (5) Glaucoma of right eye: Code(s): H40.9 - Unspecified glaucoma Status: Acute Assessment and Plan: -continue with latanoprost (6) Acute on chronic renal failure: Code(s): N17.9 - Acute kidney failure, unspecified; N18.9 - Chronic kidney disease, unspecified Status: Acute Assessment and Plan: * Continue IV fluids * Slight elevated but at baseline * Current cr 1.00 * Continue to trend labs * Adjust therapy as indicated Time Spent With Patient Time with patient: Greater than 35 minutes Subjective Date/time seen: 02/03/22 1045 Interval history: 12/06/22 1045 Patient stated that she is doing okay. She stated that she has less pain today and has been taking his many pain pills either. She also stated that she feels less bloated her stomach does look to be a little bit smaller. She still denies any gas. She also denies any chest pain, shortness a breath, nausea, vomiting, sweats, fevers, chills. She did state that she had coughed twice overnight. 02/02/22 1230 Patient is doing ok. She did state that she is having some pain in her left upper abdomen. She is also firm and distended. She stated that she did not think the NG tube was helping. She claimed her pain was a 5/10. She is also guarding with her hand. She denies any chest pain, shortness of breath, nausea, vomiting. She did state that she was having some gas yesterday, but none today. 02/01/22? 12:53 This is an
--- NOTE | 2022-02-03 10:45 | PM.IMPN ---
Progress Note: A&P Assessment and Plan (1) Small bowel obstruction: Code(s): K56.609 - Unspecified intestinal obstruction, unspecified as to partial versus complete obstruction Status: Acute Assessment and Plan: CT of the abdomen showed small bowel obstruction in the right mid abdomen, small amount of free fluid in the abdomen and pelvis NG tube present continues to drain a dark brown fluid KUB showed slight improvement 02/02/22 IV fluids continue NPO status with ice chips Trend intake and output General surgery on board Pain medication antiemetics on board Small bowel follow through scheduled for tomorrow 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 Hypoglycemic protocol. Continue to trend Adjust therapy as indicated (3) Essential hypertension: Code(s): I10 - Essential (primary) hypertension Status: Acute Assessment and Plan: BP stable at 125/58 p.r.n. hydralazine. lisinopril is on hold as she is NPO Trend BP Adjust therapy as indicted (4) Diabetic retinopathy: Code(s): E11.319 - Type 2 diabetes mellitus with unspecified diabetic retinopathy without macular edema Status: Acute Assessment and Plan: Follows with specialist outpatient (5) Glaucoma of right eye: Code(s): H40.9 - Unspecified glaucoma Status: Acute Assessment and Plan: -continue with latanoprost (6) Acute on chronic renal failure: Code(s): N17.9 - Acute kidney failure, unspecified; N18.9 - Chronic kidney disease, unspecified Status: Acute Assessment and Plan: Continue IV fluids Slight elevated but at baseline Current cr 1.00 Continue to trend labs Adjust therapy as indicated Time Spent With Patient Time with patient: Greater than 35 minutes Subjective Date/time seen: 02/03/22 1045 Interval history: 02/03/22 1045 Patient stated that she is doing okay. She stated that she has less pain today and has been taking his many pain pills either. She also stated that she feels less bloated her stomach does look to be a little bit smaller. She still denies any gas. She also denies any chest pain, shortness a breath, nausea, vomiting, sweats, fevers, chills. She did state that she had coughed twice overnight. 02/02/22 1230 Patient is doing ok. She did state that she is having some pain in her left upper abdomen. She is also firm and distended. She stated that she did not think the NG tube was helping. She claimed her pain was a 5/10. She is also guarding with her hand. She denies any chest pain, shortness of breath, nausea, vomiting. She did state that she was having some gas yesterday, but none today. 02/01/22? 12:53 This is an 81-year-old female patient who came to the emergency room with complaints of left-sided abdominal pain this pain started approximately Wednesday afternoon.? She also had nausea and vomiting and subjective fevers that day.? She is been having a decreased appetite with nausea and vomiting since then.? She tried taking some Tums without relief.? The patient stated that her abdomen was distended.? The patient stated his been 1 week since she last had a bowel movement.? She typically has a bowel movement every day.? She denies any rectal bleeding at t
[2022-02-03 12:11] LABS: Glucose Point of Care 103 mg/dl (65-105)
[2022-02-03 14:00] VITALS: BP 123/57; PULSE 82; RESP 18; TEMP 36.4; O2SAT 97
[2022-02-03] MEDS: KCL 30 MEQ/0.9% SOD CHL 1,000 ML 100 ML IV CONT (14:19)
[2022-02-03] MEDS: LATANOPROST 0.005% OP SOLN 2.5 ML BTL 1 DROP EACH EYE (18:01)
[2022-02-03 18:02] LABS: Glucose Point of Care 119 mg/dl (65-105)
[2022-02-03 21:28] VITALS: BP 125/56; PULSE 78; RESP 16; TEMP 36.4; O2SAT 98
[2022-02-03 23:56] LABS: Glucose Point of Care 129 mg/dl (65-105)
[2022-02-04] MEDS: KCL 30 MEQ/0.9% SOD CHL 1,000 ML 100 ML IV CONT (02:17)
[2022-02-04 05:59] VITALS: BP 122/56; PULSE 72; RESP 16; TEMP 36.7; O2SAT 99
[2022-02-04 05:59] LABS: Glucose Point of Care 131 mg/dl (65-105)
[2022-02-04 06:05] LABS: Basophils Percent Auto 0.4 % (0.2-1.2); Eosinophils Absolute Auto 0.1 K/mm3 (0-0.3); Hematocrit 35.1 % (37.0-47.0); Hemoglobin 11.4 g/dL (12.0-15.0); Immature Granulocyte Absolute 0.02 K/mm3 (0.00-0.031); Immature Granulocyte Percent A 0.4 % (0-0.5); Lymphocytes Absolute Auto 0.88 K/mm3 (0.9-3.2); Lymphocytes Percent Auto 16.9 % (18.3-44.2); Mean Corpuscular HGB Conc 32.5 g/dl (32-36); Mean Corpuscular Hemoglobin 28.6 pg (26-34); Mean Corpuscular Volume 88.2 fl (80-100); Mean Platelet Volume 10.7 fl (7.4-10.4); Monocytes Absolute Auto 0.4 K/mm3 (0.1-0.6); Monocytes Percent Auto 7.5 % (2.6-8.5); Neutrophils Absolute Auto 3.9 K/mm3 (1.3-6.7); Neutrophils Percent Auto 73.8 % (45.5-73.1); Platelet Count Result 283 k/mm3 (150-375); Red Blood Count 3.98 M/mm3 (4.2-5.4); Red Cell Distribution Width 13.1 % (11.5-14.5); White Blood Count 5.2 K/mm3 (4.5-10.0)
[2022-02-04 06:23] LABS: Alanine Aminotransferase 12 U/L (6-35); Albumin Level 3.4 g/dL (3.5-5.1); Alkaline Phosphatase 44 U/L (38-126); Anion Gap 8 mmol/L (8-16); Aspartate Amino Transferase 19 U/L (14-36); Bilirubin,Total 0.5 mg/dL (0.2-1.3); Blood Urea Nitrogen 27 mg/dL (7-17); Calcium 8.1 mg/dL (8.4-10.2); Carbon Dioxide 26 mmol/L (22-30); Chloride 105 mmol/L (98-107); Estimated CRCL calculation 39 ml/min; Estimated Glomerular Filt Rate 60; Glucose 128 mg/dL (65-110); Potassium 3.8 mmol/L (3.4-5.0); Sodium 139 mmol/L (137-145)
--- NOTE | 2022-02-04 06:58 | PM.PNGS ---
Progress Note: A&P Assessment and Plan (1) Small bowel obstruction: Code(s): K56.609 - Unspecified intestinal obstruction, unspecified as to partial versus complete obstruction Status: Acute Assessment and Plan: continues to improve. Although NG output was high, she is clearly improving and plain films again suggest no small bowel obstruction. Will proceed with Gastrografin small-bowel follow-through today. Hopefully will pass through and can DC NG, start oral intake. Subjective Subjective Date/Time Seen: 02/04/22 06:58 Patient reports: no new complaints, feels better, pain is less, flatus, no bowel movement and afebrile Review of Systems Review of Systems: All systems reviewed & are unremarkable except as noted in HPI and below ( HPI and those items noted below) Constitutional: Constitutional: Denies chills and Denies fever(s) Cardiovascular: Cardiovascular: Denies chest pain, Denies diaphoresis, Denies dyspnea and Denies paroxysmal nocturnal dyspnea Respiratory: Respiratory: Denies chest congestion, Denies cough and Denies dyspnea Integumentary/Breasts: Skin/Breast: Denies lesions and Denies rash Exam Const: General: comfortable and no acute distress; No confusion Orientation/consciousness: patient oriented x3 and No confusion GI: Inspection: normal to inspection and non-distended GI Palp: Yes Soft to palpation, No Tenderness to palpation present (GI), No Guarding due to palpation present (GI) and No Rebound tenderness present Auscultation: Hypoactive bowel sounds present Neuro: General: patient oriented x3, no focal motor deficits and No confusion Extrem: General: no calf tenderness and no edema Psych: Affect: normal affect Insight: Good insight present (Psych) Judgement: Good judgement present (Psych) Objective Data Vital Signs Vital Signs: Vital Signs - 24 hr 02/03/22 14:00 02/03/22 21:28 02/04/22 05:59 Temperature 36.4 C 36.4 C 36.7 C Pulse Rate 82 78 72 Respiratory Rate 18 16 16 Blood Pressure 123/57 L 125/56 L 122/56 L Pulse Oximetry 97 98 99 Intake/Output Intake/Output: Intake & Output 02/01/22 02/02/22 02/03/22 02/04/22 23:59 23:59 23:59 23:59 Intake Total 2100 3000 100 1000 Output Total 300 1950 1250 1000 Balance 1800 1050 -1150 0 1000 cc out NG tube since midnight, NG content dark. Meds/Results Medications: Active Medications Generic Name Dose Route Start Last Admin Trade Name Freq PRN Reason Stop Dose Admin Dextrose 12.5 gm 02/01/22 16:01 Dextrose 50% 25 Gm/50 Ml Syringe IV PUSH PRN PRN Hypoglycemia Protocol Enoxaparin Sodium 40 mg 02/02/22 09:00 02/03/22 08:47 Enoxaparin 40 Mg/0.4 Ml Syringe SUB-Q 40 mg DAILY ANGEL Administration Fentanyl Citrate 12.5 mcg 02/01/22 15:42 02/01/22 21:10 Fentanyl Citrate Inj (*Crx) 100 Mcg/2 Ml Vial IV PUSH 12.5 mcg Q2H PRN Administration Pain Rated 4-6 Fentanyl Citrate 25 mcg 02/01/22 15:42 02/02/22 08:37 Fentanyl Citrate Inj (*Crx) 100 Mcg/2 Ml Vial IV PUSH 25 mcg Q2H PRN Administration Pain Rated 7-10 Glucagon 1 mg 02/01/22 16:01 Glucagon For Inj 1 Mg Vial IM PRN PRN Hypoglycemia Protocol Glucose 15 gm 02/01/22 16:01 Glucose Oral Gel 15 Gm Of Glucse In 37.5 Gm Tube PO PRN PRN Hypoglycemia Protocol Hydralazine HCl 10 mg 02/01/22 16:52 Hydralazine Hcl 20 Mg/Ml Vial IV PUSH Q8H PRN Blood Pressure - High Dextrose 1,000 mls @ 100 mls/hr 02/01/22 16:01 Dextrose 5% 1,000 Ml IVPB PRN PRN Hypoglycemia Protocol Potassium Chloride/Sodium Chloride 1,000 mls @ 100 mls/hr 02/03/22 13:00 02/04/22 02:17 Kcl 30 Meq/Ns IV CONT 100 mls/hr .Q10H ANGEL Administration Insulin Aspart 2 - 5 units 02/01/22 18:00 02/04/22 06:22 Insulin Aspart (*Bkc) 100 Units/Ml SUB-Q Not Given Q6HR [facility] Protocol Latanoprost 1 drop 02/01/22 18:00 02/03/22 18:01 Latanoprost 0.0
[2022-02-04] MEDS: ONDANSETRON INJ 4 MG/2 ML VIAL IV PUSH (11:31)
[2022-02-04 14:00] VITALS: BP 141/73; PULSE 86; RESP 20; TEMP 36.3; O2SAT 94
--- NOTE | 2022-02-04 15:00 | PM.IMPN ---
Progress Note: A&P Assessment and Plan (1) Small bowel obstruction: Code(s): K56.609 - Unspecified intestinal obstruction, unspecified as to partial versus complete obstruction Status: Acute Assessment and Plan: CT of the abdomen showed small bowel obstruction in the right mid abdomen, small amount of free fluid in the abdomen and pelvis appreciate general surgery consultation small-bowel follow-through completed today which showed nondilated uniform appearance of small bowel with slow transit to colon of 4 hours continue NG tube following further recommendations from General surgery continue gentle IV fluids while NPO analgesics available as needed 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: Qualifiers: Diabetes 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 insulin use: without retirement use Diabetic retinopathy severity: with unspecified retinopathy severity Laterality: unspecified laterality Qualified Code(s): E11.311 - Type 2 diabetes mellitus with unspecified diabetic retinopathy with macular edema Code(s): E11.311 - Type 2 diabetes mellitus with unspecified diabetic retinopathy with macular edema Status: Acute Assessment and Plan: A1c is 6.5 continue Accu-Cheks q.6, sliding scale insulin, hypoglycemic protocol home metformin and glipizide on hold (3) Essential hypertension: Code(s): I10 - Essential (primary) hypertension Status: Acute Assessment and Plan: blood pressure remains stable. Home antihypertensives on hold while NPO hydralazine available as needed for elevated BP monitor blood pressure trends (4) Acute on chronic renal failure: Code(s): N17.9 - Acute kidney failure, unspecified; N18.9 - Chronic kidney disease, unspecified Status: Acute Assessment and Plan: Resolved. Renal function is stable today, consistent with baseline monitor renal function closely Subjective Date/time seen: 02/04/22 15:00 Interval history: date of service: 02/04/2022 Cherie gonzalez is an 81-year-old female with a history of CKD, hypertension, type 2 diabetes mellitus, macular degeneration who is seen in follow-up for small bowel obstruction. Patient states she is starting to feel somewhat improved. She had a small-bowel follow-through completed this morning and she subsequently has had a loose bowel movement. She feels like she is going to have another episode of diarrhea. She denies any blood in her stool. She endorses 7/10 abdominal pain which is worse in her right upper quadrant. She had some nausea and vomiting this morning which has resolved. She endorses feeling bloated. She has been tolerating ice chips. She endorses weakness. She states she feels dehydrated. She denies shortness of breath, cough, or chest pain. Review of Systems Review of Systems: All systems reviewed & are unremarkable except as noted in HPI and below Exam Narrative: General: well-nourished, well-appearing 81-year-old female, sitting up in bed, comfortable, NARD Neuro: awake, alert and oriented x4, speech clear, no focal neuro deficits noted HEENMT: normocephalic, atraumatic, EOMI, sclerae anicteric Psych: Appropriate mood and affect, judgment insight intact abdomen is bloated on visual exam not able to complete any additional exam as patient had to get up to run to the bathroom Objective Data Vital Signs Vital Signs: Vital Signs - 24 hr 02/03/22 21:28 02/04/22 05:59 02/04/22 14:00 Temperature 97.6 F 98.1 F 97.4 F L Pulse Rate 78 72 86 Respiratory Rate 16 16 20 Blood Pressure 125/56 L 122/56 L 141/73 H Pulse Oximetry 98 99 94 Intake/Output Intake/Output: Intake & Output 02/01/22 02/02/22 02/03/22 02/04/22 23:59 23:59 23:59 23:59 Intake Total 2100 3000 100 1000 Output Total 300 1950 1250 1000 Balance 1800 1050 -1150 0 Meds/Results Medications: Active Medications Generic Name D
[2022-02-04] MEDS: PANTOPRAZOLE SODIUM IV 40 MG VIAL IV PUSH (15:02)
[2022-02-04] MEDS: ENOXAPARIN 40 MG/0.4 ML SYRINGE SUB-Q (15:02)
[2022-02-04 17:22] LABS: Glucose Point of Care 198 mg/dl (65-105)
[2022-02-04] MEDS: LATANOPROST 0.005% OP SOLN 2.5 ML BTL 1 DROP EACH EYE (20:02)
[2022-02-04 20:06] VITALS: BP 123/54; PULSE 73; RESP 18; TEMP 36.4; O2SAT 97
[2022-02-05] MEDS: KCL 30 MEQ/0.9% SOD CHL 1,000 ML 100 ML IV CONT ×2 (01:11→08:33)
[2022-02-05 01:12] LABS: Glucose Point of Care 150 mg/dl (65-105)
[2022-02-05 04:26] VITALS: BP 154/63; PULSE 79; RESP 18; TEMP 36.6; O2SAT 99
[2022-02-05 06:00] LABS: Mean Corpuscular HGB Conc 31.3 g/dl (32-36); Mean Corpuscular Volume 89.6 fl (80-100); Mean Platelet Volume 10.5 fl (7.4-10.4); Platelet Count Result 259 k/mm3 (150-375); Red Blood Count 3.57 M/mm3 (4.2-5.4); White Blood Count 5.6 K/mm3 (4.5-10.0)
[2022-02-05 06:15] LABS: Anion Gap 4 mmol/L (8-16); Blood Urea Nitrogen 28 mg/dL (7-17); Calcium 8.1 mg/dL (8.4-10.2); Carbon Dioxide 26 mmol/L (22-30); Chloride 114 mmol/L (98-107); Estimated CRCL calculation 39 ml/min; Estimated Glomerular Filt Rate 60; Glucose 119 mg/dL (65-110); Potassium 4.4 mmol/L (3.4-5.0); Sodium 144 mmol/L (137-145)
[2022-02-05 06:57] LABS: Glucose Point of Care 111 mg/dl (65-105)
--- NOTE | 2022-02-05 06:57 | PM.PNGS ---
Progress Note: A&P Assessment and Plan (1) Small bowel obstruction: Code(s): K56.609 - Unspecified intestinal obstruction, unspecified as to partial versus complete obstruction Status: Acute Assessment and Plan: contrast passed through to the colon the patient has significant ileus now. I explained this to her. Will check KUB and continue NPO with NG tube today. Hopefully can start feeding tomorrow. Subjective Subjective Date/Time Seen: 02/05/22 06:57 Patient reports: feels better, pain is less, bowel movement and afebrile Review of Systems Review of Systems: All systems reviewed & are unremarkable except as noted in HPI and below ( HPI) Exam Const: General: comfortable and no acute distress; No confusion Orientation/consciousness: patient oriented x3 and No confusion GI: Inspection: non-distended GI Palp: Yes Soft to palpation, No Tenderness to palpation present (GI), No Guarding due to palpation present (GI) and No Rebound tenderness present Auscultation: Hypoactive bowel sounds present Neuro: General: patient oriented x3, no focal motor deficits and No confusion Extrem: General: no calf tenderness and no edema Psych: Affect: normal affect Insight: Good insight present (Psych) Judgement: Good judgement present (Psych) Objective Data Vital Signs Vital Signs: Vital Signs - 24 hr 02/04/22 14:00 02/04/22 20:06 02/05/22 04:26 Temperature 36.3 C L 36.4 C L 36.6 C Pulse Rate 86 73 79 Respiratory Rate 20 18 18 Blood Pressure 141/73 H 123/54 L 154/63 H Pulse Oximetry 94 97 99 Intake/Output Intake/Output: Intake & Output 02/02/22 02/03/22 02/04/22 02/05/22 23:59 23:59 23:59 23:59 Intake Total 3000 100 2500 Output Total 1950 1250 1750 Balance 1050 -1150 750 Meds/Results Medications: Active Medications Generic Name Dose Route Start Last Admin Trade Name Freq PRN Reason Stop Dose Admin Dextrose 12.5 gm 02/01/22 16:01 Dextrose 50% 25 Gm/50 Ml Syringe IV PUSH PRN PRN Hypoglycemia Protocol Enoxaparin Sodium 40 mg 02/02/22 09:00 02/04/22 15:02 Enoxaparin 40 Mg/0.4 Ml Syringe SUB-Q 40 mg DAILY ANGEL Administration Fentanyl Citrate 12.5 mcg 02/01/22 15:42 02/01/22 21:10 Fentanyl Citrate Inj (*Crx) 100 Mcg/2 Ml Vial IV PUSH 12.5 mcg Q2H PRN Administration Pain Rated 4-6 Fentanyl Citrate 25 mcg 02/01/22 15:42 02/02/22 08:37 Fentanyl Citrate Inj (*Crx) 100 Mcg/2 Ml Vial IV PUSH 25 mcg Q2H PRN Administration Pain Rated 7-10 Glucagon 1 mg 02/01/22 16:01 Glucagon For Inj 1 Mg Vial IM PRN PRN Hypoglycemia Protocol Glucose 15 gm 02/01/22 16:01 Glucose Oral Gel 15 Gm Of Glucse In 37.5 Gm Tube PO PRN PRN Hypoglycemia Protocol Hydralazine HCl 10 mg 02/01/22 16:52 Hydralazine Hcl 20 Mg/Ml Vial IV PUSH Q8H PRN Blood Pressure - High Dextrose 1,000 mls @ 100 mls/hr 02/01/22 16:01 Dextrose 5% 1,000 Ml IVPB PRN PRN Hypoglycemia Protocol Potassium Chloride/Sodium Chloride 1,000 mls @ 100 mls/hr 02/03/22 13:00 02/05/22 01:11 Kcl 30 Meq/Ns IV CONT 100 mls/hr .Q10H ANGEL Administration Insulin Aspart 2 - 5 units 02/01/22 18:00 02/05/22 01:12 Insulin Aspart (*Bkc) 100 Units/Ml SUB-Q Not Given Q6HR ANGEL Protocol Latanoprost 1 drop 02/01/22 18:00 02/04/22 20:02 Latanoprost 0.005% Op Soln 2.5 Ml Btl EACH EYE 1 drop QPM ANGEL Administration Ondansetron HCl 4 mg 02/01/22 11:48 02/04/22 11:31 Ondansetron Inj 4 Mg/2 Ml Vial IV PUSH 4 mg Q4H PRN Administration Nausea Pantoprazole Sodium 40 mg 02/04/22 09:00 02/04/22 15:02 Pantoprazole Sodium Iv 40 Mg Vial IV PUSH 40 mg QAM ANGEL Administration Phenol 1 spray 02/01/22 13:07 02/01/22 17:12 Phenol/Sod Pheno [place] (*Bkc) MUCOUS MEM 1 spray PRN PRN Administration Sore Throat Radiology Results: ITS Impressions Abdomen/Pelv
[2022-02-05] MEDS: ENOXAPARIN 40 MG/0.4 ML SYRINGE SUB-Q (08:34)
[2022-02-05] MEDS: PANTOPRAZOLE SODIUM IV 40 MG VIAL IV PUSH (08:34)
[2022-02-05 11:38] VITALS: BMI 28.5
[2022-02-05 12:07] LABS: Glucose Point of Care 115 mg/dl (65-105)
[2022-02-05 14:00] VITALS: BP 138/82; PULSE 84; RESP 18; TEMP 36.2; O2SAT 100
--- NOTE | 2022-02-05 14:00 | PM.IMPN ---
Progress Note: A&P Assessment and Plan (1) Small bowel obstruction: Code(s): K56.609 - Unspecified intestinal obstruction, unspecified as to partial versus complete obstruction Status: Acute Assessment and Plan: CT of the abdomen showed small bowel obstruction in the right mid abdomen, small amount of free fluid in the abdomen and pelvis appreciate general surgery consultation small-bowel follow-through completed 02/04 which showed nondilated uniform appearance of small bowel with slow transit to colon of 4 hours, consistent with ileus KUB today showed contrast material within the colon, gaseous distension of small bowel segments overlying the mid abdomen consistent with adynamic ileus continue NG tube continue gentle IV fluids while NPO analgesics available as needed Encourage ambulation 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: Qualifiers: 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: without jail use Diabetic retinopathy severity: with unspecified retinopathy severity Laterality: unspecified laterality Qualified Code(s): E11.311 - Type 2 diabetes mellitus with unspecified diabetic retinopathy with macular edema Code(s): E11.311 - Type 2 diabetes mellitus with unspecified diabetic retinopathy with macular edema Status: Acute Assessment and Plan: A1c is 6.5 continue Accu-Cheks q.6, sliding scale insulin, hypoglycemic protocol home metformin and glipizide on hold (3) Essential hypertension: Code(s): I10 - Essential (primary) hypertension Status: Acute Assessment and Plan: Blood pressure remains stable. Home antihypertensives on hold while NPO hydralazine available as needed for elevated BP monitor blood pressure trends (4) Acute on chronic renal failure: Code(s): N17.9 - Acute kidney failure, unspecified; N18.9 - Chronic kidney disease, unspecified Status: Acute Assessment and Plan: Resolved. Renal function is stable, consistent with baseline monitor renal function closely Subjective Date/time seen: 02/05/22 14:00 Interval history: date of service: 02/05/2022 Cherie Packer is an 81-year-old female with a history of CKD, hypertension, type 2 diabetes mellitus, macular degeneration who is seen in follow-up for small bowel obstruction. Patient reports 1 liquid brown stool this morning. Reports of episodes of vomiting yesterday but this has resolved today. She denies any nausea or vomiting. Denies abdominal pain, cramping, or bloating. Only complaint is sore throat and nasal irritation from the NG tube. Denies fever, chills, dizziness, lightheadedness, shortness of breath or chest pain. Review of Systems Review of Systems: All systems reviewed & are unremarkable except as noted in HPI and below Exam Narrative: General: well-nourished, well-appearing 81-year-old female, sitting up in bed, comfortable, NARD Neuro: awake, alert and oriented x4, speech clear, no focal neuro deficits noted HEENMT: normocephalic, atraumatic, EOMI, sclerae anicteric Respiratory: clear to auscultation bilaterally, nonlabored breathing Cardio: regular rate, regular rhythm with S1-S2 Abdomen: nondistended, hypoactive bowel sounds, soft, nontender to palpation, NG tube with brown output Extremities: no edema, erythema, or tenderness to palpation, DP pulses 2+ bilaterally Skin: no rashes or lesions, warm and dry Psych: appropriate mood and affect, judgment and insight intact Objective Data Vital Signs Vital Signs: Vital Signs - 24 hr 02/04/22 20:06 02/05/22 04:26 Temperature 97.5 F L 98 F Pulse Rate 73 79 Respiratory Rate 18 18 Blood Pressure 123/54 L 154/63 H Pulse Oximetry 97 99 Intake/Output Intake/Output: Intake & Output 02/02/22 02/03/22 02/04/22 02/05/22 23:59 23:59 23:59 23:59 Intake Total 3000 100 2500 1000 Output Total 1950 1250 1750 Balance 1050 -
[2022-02-05 17:31] LABS: Glucose Point of Care 126 mg/dl (65-105)
[2022-02-05] MEDS: LATANOPROST 0.005% OP SOLN 2.5 ML BTL 1 DROP EACH EYE (17:59)
[2022-02-05 20:54] VITALS: BP 132/48; PULSE 61; RESP 18; TEMP 36.5; O2SAT 97
[2022-02-06 00:24] LABS: Glucose Point of Care 105 mg/dl (65-105)
[2022-02-06] MEDS: KCL 30 MEQ/0.9% SOD CHL 1,000 ML 80 ML IV CONT (02:39)
[2022-02-06 05:03] VITALS: BP 131/63; PULSE 66; RESP 20; TEMP 36.6; O2SAT 99
[2022-02-06 05:24] LABS: Glucose Point of Care 87 mg/dl (65-105)
[2022-02-06 06:19] LABS: Hematocrit 30.8 % (37.0-47.0); Hemoglobin 9.8 g/dL (12.0-15.0); Mean Corpuscular HGB Conc 31.8 g/dl (32-36); Mean Corpuscular Hemoglobin 29.7 pg (26-34); Mean Corpuscular Volume 93.3 fl (80-100); Platelet Count Result 203 k/mm3 (150-375); Red Cell Distribution Width 13.2 % (11.5-14.5); White Blood Count 5.2 K/mm3 (4.5-10.0)
[2022-02-06 06:32] LABS: Anion Gap 6 mmol/L (8-16); Blood Urea Nitrogen 24 mg/dL (7-17); Calcium 8.2 mg/dL (8.4-10.2); Carbon Dioxide 21 mmol/L (22-30); Chloride 114 mmol/L (98-107); Estimated CRCL calculation 49 ml/min; Estimated Glomerular Filt Rate > 60; Glucose 85 mg/dL (65-110); Potassium 4.4 mmol/L (3.4-5.0); Sodium 141 mmol/L (137-145)
[2022-02-06] MEDS: ENOXAPARIN 40 MG/0.4 ML SYRINGE SUB-Q (08:46)
[2022-02-06] MEDS: PANTOPRAZOLE SODIUM IV 40 MG VIAL IV PUSH (08:47)
--- NOTE | 2022-02-06 09:47 | PCNFU ---
Nutrition Follow-Up Complete: Altered GI function as related to Ileus as evidenced by NPO goal; Meet estimated nutritional needs Patient is progressing towards goal. We will continue current goal. Pt current nutrition is Clear Liquids. Nutrition recommendation: advancing as tolerated. Last recorded weight is 70.8 kg. Bowel Motility:+Bm reported 02/05 Labs Reviewed:BUN 24, Hct 30.8,Hgb 9.8 Meds Noted:Lovenox, Protonix Skin: WNL Additional Notes: NGT has been removed. Patient started on clear liquid diet. Ensure Clear on clear liquid tray providing an additional 240 kcals and 8 gms protein. Plans to advance diet as tolerated. Agree with diet orders. Monitoring: every 5 days.
[2022-02-06 12:44] LABS: Glucose Point of Care 276 mg/dl (65-105)
--- NOTE | 2022-02-06 12:46 | PM.IMPN ---
Progress Note: A&P Assessment and Plan (1) Small bowel obstruction: Code(s): K56.609 - Unspecified intestinal obstruction, unspecified as to partial versus complete obstruction Status: Acute Assessment and Plan: CT of the abdomen showed small bowel obstruction in the right mid abdomen, small amount of free fluid in the abdomen and pelvis appreciate general surgery consultation small-bowel follow-through completed 02/04 which showed nondilated uniform appearance of small bowel with slow transit to colon of 4 hours, consistent with ileus KUB today showed no definite dilated bowel identified Advanced to full liquid diet per General surgery. 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: without equipment operator intermodal yard use Diabetic retinopathy severity: with unspecified retinopathy severity Laterality: unspecified laterality Qualified Code(s): E11.311 - Type 2 diabetes mellitus with unspecified diabetic retinopathy with macular edema Code(s): E11.311 - Type 2 diabetes mellitus with unspecified diabetic retinopathy with macular edema Status: Acute Assessment and Plan: A1c is 6.5 continue Accu-Cheks ACHS, sliding scale insulin, hypoglycemic protocol home metformin and glipizide on hold (3) Essential hypertension: Code(s): I10 - Essential (primary) hypertension Status: Acute Assessment and Plan: Blood pressure remains stable. Resume home lisinopril hydralazine available as needed for elevated BP monitor blood pressure trends (4) Acute on chronic renal failure: Code(s): N17.9 - Acute kidney failure, unspecified; N18.9 - Chronic kidney disease, unspecified Status: Acute Assessment and Plan: Resolved. Renal function is stable, consistent with baseline monitor renal function closely Subjective Date/time seen: 02/06/22 12:46 Interval history: date of service: 02/06/2022 Cherie Packer is an 81-year-old female with a history of CKD, hypertension, type 2 diabetes mellitus, macular degeneration who is seen in follow-up for small bowel obstruction. Her NG tube has been removed and she is happy about this. She is tolerating clear liquid diet. She states she is feeling better. She denies abdominal pain. No nausea or vomiting. Has a mild sore throat from the NG tube but this is improving since removal. Denies shortness of breath. She states she had a couple ?drops? of stool today but no full bowel movement. She has no additional concerns. Review of Systems Review of Systems: All systems reviewed & are unremarkable except as noted in HPI and below Exam Narrative: General: well-nourished, well-appearing 81-year-old female, sitting up in bed, comfortable, NARD Neuro: awake, alert and oriented x4, speech clear, no focal neuro deficits noted HEENMT: normocephalic, atraumatic, EOMI, sclerae anicteric Respiratory: clear to auscultation bilaterally, nonlabored breathing Cardio: regular rate, regular rhythm with S1-S2 Abdomen: nondistended, hypoactive bowel sounds, soft, nontender to palpation Extremities: no edema, erythema, or tenderness to palpation, DP pulses 2+ bilaterally Skin: no rashes or lesions, warm and dry Psych: appropriate mood and affect, judgment and insight intact Objective Data Vital Signs Vital Signs: Vital Signs - 24 hr 02/05/22 14:00 02/05/22 20:54 02/06/22 05:03 Temperature 97.2 F L 97.7 F 97.8 F Pulse Rate 84 61 66 Respiratory Rate 18 18 20 Blood Pressure 138/82 132/48 L 131/63 Pulse Oximetry 100 97 99 Intake/Output Intake/Output: Intake & Output 02/03/22 02/04/22 02/05/22 02/06/22 23:59 23:59 23:59 23:59 Intake Total 100 2500 2000 340 Output Total 1250 1750 300 200 Balance -8858 018 9846 140 Meds/Results M
[2022-02-06] MEDS: INSULIN ASPART (*BKC) 100 UNITS/ML SUB-Q (13:40)
[2022-02-06 14:00] VITALS: BP 148/57; PULSE 82; RESP 16; TEMP 36.3; O2SAT 96
[2022-02-06] MEDS: KCL 30 MEQ/0.9% SOD CHL 1,000 ML 65 ML IV CONT (14:15)
--- NOTE | 2022-02-06 15:07 | PM.PNGS ---
Progress Note: A&P Assessment and Plan (1) Small bowel obstruction: Code(s): K56.609 - Unspecified intestinal obstruction, unspecified as to partial versus complete obstruction Status: Acute Assessment and Plan: Bowel function seems to be returning. Will DC NG tube and try liquids today. Subjective Subjective Date/Time Seen: 02/06/22 15:07 Patient reports: no new complaints, feels better, flatus, no bowel movement and afebrile Review of Systems Review of Systems: All systems reviewed & are unremarkable except as noted in HPI and below (HPI and those items noted below) Constitutional: Constitutional: Denies chills and Denies fever(s) Cardiovascular: Cardiovascular: Denies chest pain, Denies diaphoresis, Denies dyspnea and Denies paroxysmal nocturnal dyspnea Respiratory: Respiratory: Denies chest congestion, Denies cough and Denies dyspnea Integumentary/Breasts: Skin/Breast: Denies lesions and Denies rash Exam Const: General: comfortable and no acute distress; No confusion Orientation/consciousness: patient oriented x3 and No confusion GI: Inspection: normal to inspection and non-distended GI Palp: Yes Soft to palpation, No Tenderness to palpation present (GI), No Guarding due to palpation present (GI) and No Rebound tenderness present Auscultation: normal bowel sounds Neuro: General: patient oriented x3, no focal motor deficits and No confusion Extrem: General: no calf tenderness and no edema Psych: Affect: normal affect Insight: Good insight present (Psych) Judgement: Good judgement present (Psych) Objective Data Vital Signs Vital Signs: Vital Signs - 24 hr 02/05/22 20:54 02/06/22 05:03 Temperature 36.5 C 36.6 C Pulse Rate 61 66 Respiratory Rate 18 20 Blood Pressure 132/48 L 131/63 Pulse Oximetry 97 99 Intake/Output Intake/Output: Intake & Output 02/03/22 02/04/22 02/05/22 02/06/22 23:59 23:59 23:59 23:59 Intake Total 100 2500 2000 1340 Output Total 1250 1750 300 200 Balance -4327 527 9448 1140 Meds/Results Medications: Active Medications Generic Name Dose Route Start Last Admin Trade Name Freq PRN Reason Stop Dose Admin Dextrose 12.5 gm 02/01/22 16:01 Dextrose 50% 25 Gm/50 Ml Syringe IV PUSH PRN PRN Hypoglycemia Protocol Enoxaparin Sodium 40 mg 02/02/22 09:00 02/06/22 08:46 Enoxaparin 40 Mg/0.4 Ml Syringe SUB-Q 40 mg DAILY ANGEL Administration Fentanyl Citrate 12.5 mcg 02/01/22 15:42 02/01/22 21:10 Fentanyl Citrate Inj (*Crx) 100 Mcg/2 Ml Vial IV PUSH 12.5 mcg Q2H PRN Administration Pain Rated 4-6 Fentanyl Citrate 25 mcg 02/01/22 15:42 02/02/22 08:37 Fentanyl Citrate Inj (*Crx) 100 Mcg/2 Ml Vial IV PUSH 25 mcg Q2H PRN Administration Pain Rated 7-10 Glucagon 1 mg 02/01/22 16:01 Glucagon For Inj 1 Mg Vial IM PRN PRN Hypoglycemia Protocol Glucose 15 gm 02/01/22 16:01 Glucose Oral Gel 15 Gm Of Glucse In 37.5 Gm Tube PO PRN PRN Hypoglycemia Protocol Hydralazine HCl 10 mg 02/05/22 14:09 Hydralazine Hcl 20 Mg/Ml Vial IV PUSH Q8H PRN Systolic BP >165 Dextrose 1,000 mls @ 100 mls/hr 02/01/22 16:01 Dextrose 5% 1,000 Ml IVPB PRN PRN Hypoglycemia Protocol Potassium Chloride/Sodium Chloride 1,000 mls @ 65 mls/hr 02/03/22 13:00 02/06/22 14:15 Kcl 30 Meq/Ns IV CONT 65 mls/hr .[id number] ANGEL Administration Insulin Aspart 2 - 5 units 02/01/22 18:00 02/06/22 13:40 Insulin Aspart (*Bkc) 100 Units/Ml SUB-Q 3 units Q6HR ANGEL Administration Protocol Latanoprost 1 drop 02/01/22 18:00 02/05/22 17:59 Latanoprost 0.005% Op Soln 2.5 Ml Btl EACH EYE 1 drop QPM ANGEL Administration Lisinopril 10 mg 02/07/22 09:00 Lisinopril 10 Mg Tablet PO DAILY [facility] Ondansetron HCl 4 mg 02/01/22 11:48 02/04/22 11:31 Ondansetron Inj 4 Mg/2 Ml Vial IV PUSH 4 mg Q4H PRN Administration Nausea [place]
[2022-02-06 17:18] LABS: Glucose Point of Care 136 mg/dl (65-105)
[2022-02-06] MEDS: LATANOPROST 0.005% OP SOLN 2.5 ML BTL 1 DROP EACH EYE (17:58)
[2022-02-06 22:00] VITALS: BP 143/47; PULSE 71; RESP 17; TEMP 35.7; O2SAT 98
[2022-02-07 00:38] LABS: Glucose Point of Care 154 mg/dl (65-105)
[2022-02-07 06:00] VITALS: BP 154/65; PULSE 70; RESP 17; TEMP 35.9; O2SAT 97
[2022-02-07 07:02] LABS: Glucose Point of Care 125 mg/dl (65-105)
[2022-02-07 07:06] LABS: Hematocrit 31.8 % (37.0-47.0); Hemoglobin 10.2 g/dL (12.0-15.0); Mean Corpuscular HGB Conc 32.1 g/dl (32-36); Mean Corpuscular Hemoglobin 28.9 pg (26-34); Mean Corpuscular Volume 90.1 fl (80-100); Mean Platelet Volume 10.3 fl (7.4-10.4); Platelet Count Result 239 k/mm3 (150-375); Red Blood Count 3.53 M/mm3 (4.2-5.4); Red Cell Distribution Width 13.2 % (11.5-14.5); White Blood Count 5.4 K/mm3 (4.5-10.0)
[2022-02-07 07:24] LABS: Anion Gap 4 mmol/L (8-16); Blood Urea Nitrogen 15 mg/dL (7-17); Calcium 8.2 mg/dL (8.4-10.2); Carbon Dioxide 28 mmol/L (22-30); Chloride 107 mmol/L (98-107); Estimated CRCL calculation 44 ml/min; Estimated Glomerular Filt Rate > 60; Glucose 120 mg/dL (65-110); Potassium 4.2 mmol/L (3.4-5.0); Sodium 139 mmol/L (137-145)
[2022-02-07] MEDS: PANTOPRAZOLE SODIUM IV 40 MG VIAL IV PUSH (09:07)
[2022-02-07] MEDS: lisinopriL 10 MG TABLET PO (09:07)
[2022-02-07] MEDS: ENOXAPARIN 40 MG/0.4 ML SYRINGE SUB-Q (09:07)
[2022-02-07 09:10] VITALS: O2SAT 96
[2022-02-07 10:21] LABS: Glucose Point of Care 157 mg/dl (65-105)
--- NOTE | 2022-02-07 12:02 | PM.IMPN ---
Progress Note: A&P Assessment and Plan (1) Small bowel obstruction: Code(s): K56.609 - Unspecified intestinal obstruction, unspecified as to partial versus complete obstruction Status: Acute Assessment and Plan: CT of the abdomen showed small bowel obstruction in the right mid abdomen, small amount of free fluid in the abdomen and pelvis Appreciate general surgery consultation Symptomatic improvement following NG decompression Small-bowel follow-through completed 02/04 which showed nondilated uniform appearance of small bowel with slow transit to colon of 4 hours, consistent with ileus KUB yesterday showed no definite dilated bowel identified Continue with full liquid diet. Plan to advance to low-fiber diet for dinner and monitor how patient tolerates IV fluids discontinued as patient is tolerating p.o. 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: Qualifiers: Diabetes mellitus correction insulin use: without correction use Diabetic retinopathy severity: with unspecified retinopathy severity Laterality: unspecified laterality Qualified Code(s): E11.311 - Type 2 diabetes mellitus with unspecified diabetic retinopathy with macular edema Code(s): E11.311 - Type 2 diabetes mellitus with unspecified diabetic retinopathy with macular edema Status: Acute Assessment and Plan: A1c is 6.5 continue Accu-Cheks ACHS, sliding scale insulin, hypoglycemic protocol home metformin and glipizide on hold (3) Essential hypertension: Code(s): I10 - Essential (primary) hypertension Status: Acute Assessment and Plan: Blood pressure remains stable. Continue home lisinopril monitor blood pressure trends (4) Acute on chronic renal failure: Code(s): N17.9 - Acute kidney failure, unspecified; N18.9 - Chronic kidney disease, unspecified Status: Acute Assessment and Plan: Resolved. Renal function is stable, consistent with baseline monitor renal function closely Plan Hopeful discharge tomorrow if continued improvement and tolerating diet Subjective Date/time seen: 02/07/22 12:02 Interval history: date of service: 02/07/2022 Cherie Packer is an 81-year-old female with a history of CKD, hypertension, type 2 diabetes mellitus, macular degeneration who is seen in follow-up for small bowel obstruction. She is feeling well today. She had a soft, formed bowel movement this morning. She has no abdominal pain. Denies cramping or bloating. She is tolerating full liquids. No shortness of breath, cough, chest pain. She has been ambulating without difficulty. Denies weakness. She has no additional concerns Review of Systems Review of Systems: All systems reviewed & are unremarkable except as noted in HPI and below Exam Narrative: General: well-nourished, well-appearing 81-year-old female, sitting up in bed, comfortable, NARD Neuro: awake, alert and oriented x4, speech clear, no focal neuro deficits noted HEENMT: normocephalic, atraumatic, EOMI, sclerae anicteric Respiratory: clear to auscultation bilaterally, nonlabored breathing Cardio: regular rate, regular rhythm with S1-S2 Abdomen: nondistended, normoactive bowel sounds, soft, nontender to palpation Extremities: no edema, erythema, or tenderness to palpation, DP pulses 2+ bilaterally Skin: no rashes or lesions, warm and dry Psych: appropriate mood and affect, judgment and insight intact Objective Data Vital Signs Vital Signs: Vital Signs - 24 hr 02/06/22 14:00 02/06/22 22:00 02/07/22 06:00 Temperature 97.4 F L 96.2 F L 96.6 F L Pulse Rate 82 71 70 Respiratory Rate 16 17 17 Blood Pressure 148/57 H 143/47 H 154/65 H Pulse Oximetry 96 98 97 Oxygen Delivery 02/07/22 09:10 Temperature Pulse Rate Respiratory Rate Blood Pressure P
[2022-02-07 13:26] LABS: Glucose Point of Care 132 mg/dl (65-105)
[2022-02-07 14:40] VITALS: BP 124/59; PULSE 73; RESP 16; TEMP 36.1; O2SAT 96
[2022-02-07 17:48] LABS: Glucose Point of Care 71 mg/dl (65-105)
[2022-02-07] MEDS: LATANOPROST 0.005% OP SOLN 2.5 ML BTL 1 DROP EACH EYE (18:14)
--- NOTE | 2022-02-07 18:47 | PM.PNGS ---
Progress Note: A&P Assessment and Plan (1) Small bowel obstruction: Code(s): K56.609 - Unspecified intestinal obstruction, unspecified as to partial versus complete obstruction Status: Acute Assessment and Plan: Patient tolerating full liquids. Will advance diet and if doing well perhaps home tomorrow. Plan Tolerated full liquid diet all day today and we will therefore advance her to soft diet. Hopefully home tomorrow. Subjective Subjective Date/Time Seen: 02/07/22 18:17 Interval history: patient reports having several bowel movements today. She is feeling fairly well. Tolerated full liquid diet all day today and we will therefore advance her to soft diet. Hopefully home tomorrow. Review of Systems Review of Systems: All systems reviewed & are unremarkable except as noted in HPI and below (HPI and those items noted below) Constitutional: Constitutional: Denies chills and Denies fever(s) Cardiovascular: Cardiovascular: Denies chest pain, Denies diaphoresis, Denies dyspnea and Denies paroxysmal nocturnal dyspnea Respiratory: Respiratory: Denies chest congestion, Denies cough and Denies dyspnea Gastrointestinal: Gastrointestinal: Reports as per HPI and Reports no additional gastrointestinal complaints Exam Const: General: comfortable and no acute distress; No confusion Orientation/consciousness: patient oriented x3 and No confusion GI: Inspection: normal to inspection and non-distended GI Palp: Yes Soft to palpation, No Tenderness to palpation present (GI), No Guarding due to palpation present (GI) and No Rebound tenderness present Auscultation: normal bowel sounds Neuro: General: patient oriented x3 and No confusion Extrem: General: no calf tenderness and no edema Psych: Affect: normal affect Insight: Good insight present (Psych) Judgement: Good judgement present (Psych) Objective Data Vital Signs Vital Signs: Vital Signs - 24 hr 02/06/22 22:00 02/07/22 06:00 02/07/22 09:10 Temperature 35.7 C L 35.9 C L Pulse Rate 71 70 Respiratory Rate 17 17 Blood Pressure 143/47 H 154/65 H Pulse Oximetry 98 97 96 Oxygen Delivery Room Air 02/07/22 14:40 Temperature 36.1 C L Pulse Rate 73 Respiratory Rate 16 Blood Pressure 124/59 L Pulse Oximetry 96 Oxygen Delivery Intake/Output Intake/Output: Intake & Output 02/04/22 02/05/22 02/06/22 02/07/22 23:59 23:59 23:59 23:59 Intake Total 2500 1999 1580 1560 Output Total 1750 300 200 Balance 750 1700 1380 1560 Meds/Results Medications: Active Medications Generic Name Dose Route Start Last Admin Trade Name Freq PRN Reason Stop Dose Admin Acetaminophen 650 mg 02/07/22 08:02 Acetaminophen 325 Mg Tablet PO Q6H PRN Headache Dextrose 12.5 gm 02/01/22 16:01 Dextrose 50% 25 Gm/50 Ml Syringe IV PUSH PRN PRN Hypoglycemia Protocol Enoxaparin Sodium 40 mg 02/02/22 09:00 02/07/22 09:07 Enoxaparin 40 Mg/0.4 Ml Syringe SUB-Q 40 mg DAILY ANGEL Administration Fentanyl Citrate 25 mcg 02/01/22 15:42 02/02/22 08:37 Fentanyl Citrate Inj (*Crx) 100 Mcg/2 Ml Vial IV PUSH 25 mcg Q2H PRN Administration Pain Rated 7-10 Glucagon 1 mg 02/01/22 16:01 Glucagon For Inj 1 Mg Vial IM PRN PRN Hypoglycemia Protocol Glucose 15 gm 02/01/22 16:01 Glucose Oral Gel 15 Gm Of Glucse In 37.5 Gm Tube PO PRN PRN Hypoglycemia Protocol Hydralazine HCl 10 mg 02/05/22 14:09 Hydralazine Hcl 20 Mg/Ml Vial IV PUSH Q8H PRN Systolic BP >165 Dextrose 1,000 mls @ 100 mls/hr 02/01/22 16:01 Dextrose 5% 1,000 Ml IVPB PRN PRN Hypoglycemia Protocol Insulin Aspart 2 - 5 units 02/01/22 18:00 02/07/22 18:13 Insulin Aspart (*Bkc) 100 Units/Ml SUB-Q Not Given Q6HR ANGEL Protocol Latanoprost 1 drop 02/01/22 18:00 02/07/22 18:14 Latanoprost 0.005% Op Soln 2.5 Ml Btl EACH EYE 1 drop QPM ANGEL Administration
[2022-02-07 21:08] LABS: Glucose Point of Care 87 mg/dl (65-105)
[2022-02-07 21:16] VITALS: BP 117/51; PULSE 78; RESP 18; TEMP 36.5; O2SAT 99
[2022-02-08 05:12] VITALS: BP 127/55; PULSE 72; RESP 16; TEMP 36.3; O2SAT 97
[2022-02-08 06:15] LABS: Hematocrit 31.4 % (37.0-47.0); Hemoglobin 10.1 g/dL (12.0-15.0); Mean Corpuscular HGB Conc 32.2 g/dl (32-36); Mean Corpuscular Hemoglobin 29.2 pg (26-34); Mean Corpuscular Volume 90.8 fl (80-100); Mean Platelet Volume 10.5 fl (7.4-10.4); Platelet Count Result 232 k/mm3 (150-375); Red Blood Count 3.46 M/mm3 (4.2-5.4); Red Cell Distribution Width 13.2 % (11.5-14.5); White Blood Count 5.5 K/mm3 (4.5-10.0)
[2022-02-08 06:49] LABS: Anion Gap 5 mmol/L (8-16); Blood Urea Nitrogen 9 mg/dL (7-17); Calcium 8.2 mg/dL (8.4-10.2); Carbon Dioxide 26 mmol/L (22-30); Chloride 107 mmol/L (98-107); Estimated CRCL calculation 44 ml/min; Estimated Glomerular Filt Rate > 60; Glucose 92 mg/dL (65-110); Potassium 3.6 mmol/L (3.4-5.0); Sodium 138 mmol/L (137-145)
[2022-02-08] MEDS: PANTOPRAZOLE 40 MG TABLET PO (08:44)
[2022-02-08] MEDS: lisinopriL 10 MG TABLET PO (08:44)
[2022-02-08] MEDS: ENOXAPARIN 40 MG/0.4 ML SYRINGE SUB-Q (08:45)
[2022-02-08 09:43] LABS: Glucose Point of Care 131 mg/dl (65-105)
--- NOTE | 2022-02-08 11:42 | PM.PNGS ---
Progress Note: A&P Assessment and Plan (1) Small bowel obstruction: Code(s): K56.609 - Unspecified intestinal obstruction, unspecified as to partial versus complete obstruction Status: Acute Assessment and Plan: Patient tolerating Low-fiber soft diet today. If doing well and hospitalist agrees perhaps home today. no need to follow up with surgery unless further problems develop. Okay to follow-up with PCP as an outpatient. Discussed gradual moved to some fiber supplement with Metamucil 1 week after discharge if doing well. ( patient occasionally goes 2-3 days without a bowel movement). Plan . Subjective Subjective Date/Time Seen: 02/08/22 11:02 Patient reports: no new complaints, feels better, flatus and bowel movement Interval history: Patient is sitting at the side of the bed when I entered the room. She states she is feeling well. She tolerated a soft low-fiber diet this morning. Review of Systems Review of Systems: All systems reviewed & are unremarkable except as noted in HPI and below (HPI and those items noted below) Constitutional: Constitutional: Denies chills and Denies fever(s) Cardiovascular: Cardiovascular: Denies chest pain, Denies diaphoresis, Denies dyspnea and Denies paroxysmal nocturnal dyspnea Respiratory: Respiratory: Denies chest congestion, Denies cough and Denies dyspnea Gastrointestinal: Gastrointestinal: Reports as per HPI and Reports no additional gastrointestinal complaints Genitourinary: Comments: Patient remembered today when questioned again that she did have a surgical procedure in the abdomen which was a tubal ligation when she was about age 31. Exam Const: General: comfortable and no acute distress; No confusion Orientation/consciousness: patient oriented x3 and No confusion GI: Inspection: normal to inspection and non-distended GI Palp: Yes Soft to palpation, No Tenderness to palpation present (GI), No Guarding due to palpation present (GI) and No Rebound tenderness present Auscultation: normal bowel sounds Neuro: General: patient oriented x3 and No confusion Extrem: General: no calf tenderness and no edema Psych: Affect: normal affect Insight: Good insight present (Psych) Judgement: Good judgement present (Psych) Objective Data Vital Signs Vital Signs: Vital Signs - 24 hr 02/07/22 14:40 02/07/22 21:16 02/08/22 05:12 Temperature 36.1 C L 36.5 C 36.3 C L Pulse Rate 73 78 72 Respiratory Rate 16 18 16 Blood Pressure 124/59 L 117/51 L 127/55 L Pulse Oximetry 96 99 97 Intake/Output Intake/Output: Intake & Output 02/05/22 02/06/22 02/07/22 02/08/22 23:59 23:59 23:59 23:59 Intake Total 1999 1580 1560 480 Output Total 300 200 Balance 1700 1380 1560 480 Meds/Results Medications: Active Medications Generic Name Dose Route Start Last Admin Trade Name Freq PRN Reason Stop Dose Admin Acetaminophen 650 mg 02/07/22 08:02 Acetaminophen 325 Mg Tablet PO Q6H PRN Headache Dextrose 12.5 gm 02/01/22 16:01 Dextrose 50% 25 Gm/50 Ml Syringe IV PUSH PRN PRN Hypoglycemia Protocol Enoxaparin Sodium 40 mg 02/02/22 09:00 02/08/22 08:45 Enoxaparin 40 Mg/0.4 Ml Syringe SUB-Q 40 mg DAILY ANGEL Administration Fentanyl Citrate 25 mcg 02/01/22 15:42 02/02/22 08:37 Fentanyl Citrate Inj (*Crx) 100 Mcg/2 Ml Vial IV PUSH 25 mcg Q2H PRN Administration Pain Rated 7-10 Glucagon 1 mg 02/01/22 16:01 Glucagon For Inj 1 Mg Vial IM PRN PRN Hypoglycemia Protocol Glucose 15 gm 02/01/22 16:01 Glucose Oral Gel 15 Gm Of Glucse In 37.5 Gm Tube PO PRN PRN Hypoglycemia Protocol Hydralazine HCl 10 mg 02/05/22 14:09 Hydralazine Hcl 20 Mg/Ml Vial IV PUSH Q8H PRN Systolic BP >165 Dextrose 1,000 mls @ 100 mls/hr 02/01/22 16:01 Dextrose 5% 1,000 Ml IVPB PRN PRN Hypoglycemia Protocol Insulin Aspart 2 - 5 units 02/01/22 1
--- NOTE | 2022-02-08 12:15 | PM.DS ---
DS: Admitting Diagnosis Discharge Date 02/08/2022 Admitting Diagnosis SBO DS: Discharge Diagnosis Discharge Diagnosis (1) Small bowel obstruction: Code(s): K56.609 - Unspecified intestinal obstruction, unspecified as to partial versus complete obstruction Status: Acute Assessment and Plan: CT of the abdomen showed small bowel obstruction in the right mid abdomen, small amount of free fluid in the abdomen and pelvis. patient was seen in consultation by General surgery. She had symptomatic improvement following NG decompression. Small-bowel follow-through completed on 02/04 which showed nondilated uniform appearance of small bowel with slow transit to: Of 4 hours consistent with ileus. This resolved as well and KUB completed which showed no definite dilated bowel. Diet was slowly advanced and patient was ultimately able to tolerate a low-fiber diet which she will continue. 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 Continue home metformin and glipizide (3) Essential hypertension: Code(s): I10 - Essential (primary) hypertension Status: Acute Assessment and Plan: Blood pressure remained stable. Continue home lisinopril (4) Acute on chronic renal failure: Code(s): N17.9 - Acute kidney failure, unspecified; N18.9 - Chronic kidney disease, unspecified Status: Acute Assessment and Plan: Resolved. Renal function remained stable DS: Summary Hospital Course Hospital Course: date of admission: 02/01/2022 date of discharge: 02/08/2022 Cherie Packer is an 81-year-old female with a history of CKD, hypertension, type 2 diabetes mellitus, macular degeneration who presented to the emergency department on 02/01/2022 with complaints of left-sided abdominal pain with associated nausea and vomiting. On presentation to the ED, her vital signs were stable, she was afebrile, WBC 12.3, additional laboratory workup unremarkable, CT of the abdomen/ pelvis revealed small-bowel obstruction with transition in the right mid abdomen with proximal small-bowel dilation and air-fluid levels. NG decompression was initiated the patient was admitted to the hospitalist service for further evaluation and management and was seen in consultation by General surgery. Obstruction resolved following bowel rest and decompression. NG tube was removed and patient was able to slowly advance her diet, was able to ultimately tolerate low-fiber diet which she will continue as an outpatient. bowel function returned. patient was feeling much improved and back to her usual state of health. Given overall improvement, she was determined to no longer require inpatient care and was discharged in hemodynamically stable condition on 02/08/2022. The patient lives at home independently and felt comfortable with plans for return home. All questions answered and patient was educated on worrisome signs and symptoms for which to return. Time Spent with Patient Time attestation: Total time spent providing and/or coordinating discharge services: 38 minute Time spent: Greater than 30 minutes Exam Narrative: General: well-nourished, well-appearing 81-year-old female, sitting up in bed, comfortable, NARD Neuro: awake, alert and oriented x4, speech clear, no focal neuro deficits noted HEENMT: normocephalic, atraumatic, EOMI, sclerae anicteric Respiratory: clear to auscultation bilaterally, nonlabored breathing Cardio: reg
[2022-02-08 12:56] LABS: Glucose Point of Care 54 mg/dl (65-105)
[2022-02-08 14:13] VITALS: BP 142/61; PULSE 88; RESP 16; TEMP 35.9; O2SAT 99
== END 2022-02-08 14:48 | disposition home or self-care (01) | DRG 390 ==
LOC: ANHED 12:40 → ANH3MED 02-02 09:53
PROVIDERS: Nurse Practitioner; Physician Assistant; Surgery; Admitting Provider Internal Medicine; Emergency Provider Emergency Medicine; PCP Emergency Medicine; Visit Provider Physician Assistant
DX: K56.609 Unspecified intestinal obstruction, unspecified as to partial versus complete obstruction (principal); I12.9 Hypertensive chronic kidney disease with stage 1 through stage 4 chronic kidney disease, or unspecified chronic kidney disease; K56.7 Ileus, unspecified; N18.30 Chronic kidney disease, stage 3 unspecified; E11.22 Type 2 diabetes mellitus with diabetic chronic kidney disease; E11.311 Type 2 diabetes mellitus with unspecified diabetic retinopathy with macular edema; H35.3290 Exudative age-related macular degeneration, unspecified eye, stage unspecified; H40.9 Unspecified glaucoma; R01.1 Cardiac murmur, unspecified; Z20.822 Contact with and (suspected) exposure to COVID-19
CPT/HCPCS: 36415; 74018; 74177; 74250; 80048; 80053; 81001; 82948; 83036; 83605; 83690; 83735; 84100; 84443; 85025; 85027; 87086; 87088; 87636; 96361; 96374; 96375; 99285; A9270; C9113; J0131; J1650; J1815; J2405; J3010; J3475; J3480; J7030; Q9967

== ENCOUNTER → 2022-05-11 10:43 | Outpatient (CLI) | payer MEDICARE, SELFPAY ==
--- NOTE | ~2022-05-11 | XR_ITS ---
EXAM: XR knee LT min 4V DATE: 05/11/2022 11:45 HISTORY: Pain in left knee; chronic bilat knee pain . COMPARISON: None available. FINDINGS: Normal mineralization. No fracture or dislocation. No lytic or blastic lesion. Moderate me dial joint space narrowing and mild tricompartmental osteophytosis, both changes typical of osteoarth ritis. Quadriceps enthesopathy. Chondrocalcinosis which can be seen with CPPD and other arthritic con ditions. Small ossific fragment adjacent to the fibular head may represent dystrophic calcification o r old avulsion fracture. No erosion or periosteal change. Soft tissues within normal limits. IMPRESSION: No acute osseous finding in the left knee. Tricompartmental arthritis of the left knee, m oderate in the medial compartment. Reviewed, dictated and finalized at location K. IMPRESSION: No acute osseous finding in the left knee. Tricompartmental arthrit is of the left knee, moderate in the medial compartment.
--- NOTE | ~2022-05-11 | XR_ITS ---
EXAMINATION: XR knee RT min 4V DATE: 05/11/2022 11:45 INDICATION: Right knee pain. TECHNIQUE: 4 views of right knee including standing views were obtained. COMPARISON: Right knee radiographs 07/04/2021 FINDINGS: Bone alignment is normal. No fracture. There is mild osteoarthritis of medial compartment a nd moderate osteoarthritis of lateral and patellofemoral compartments. There is a small knee joint ef fusion. There are dystrophic calcifications of the joint capsule. IMPRESSION: 1. Moderate right knee osteoarthritis. 2. Small right knee joint effusion. Reviewed, dictated and finalized at location A.
== END ==
PROVIDERS: PCP Internal Medicine; Visit Provider Nurse Practitioner Family
DX: M17.0 Bilateral primary osteoarthritis of knee (principal); M25.461 Effusion, right knee; M25.562 Pain in left knee; M25.561 Pain in right knee
CPT/HCPCS: 73564

== ENCOUNTER 2022-09-23 14:28 | Outpatient (CLI) | payer MEDICARE, SELFPAY ==
--- NOTE | 2022-09-23 14:47 | ECHO_ITS ---
Patient Info Name: Cherie Packer Age: 81 years : 1940 Gender: Female Ht: 62 in Wt: 150 lbs BSA: 1.74 m2 HR: 84 bpm BP: 120 / 79 mmHg Heart Rhythm: Sinus Rhythm Technical Quality: Good Exam Date: 09/23/2022 3:02 PM Exam Location: [facility] Patient Status: Outpatient Admit Date: 09/23/2022 Staff Ordering Physician: Nate Clinton MD Dermatologist: Axel Suh RDCS Attending Provider: Nate Clinton MD Referring Physician: Oz SORENSON; Exam Type: CA echo doppler color flow Study Info Indications - cardiac murmur , umspecified Complete two-dimensional, color flow and Doppler transthoracic echocardiogram is performed. Summary 1. Complete two-dimensional, color flow and Doppler transthoracic echocardiogram is performed. 2. Left ventricular chamber dimension is normal. 3. Left ventricular systolic function is normal, estimated at 60-65%. 4. There is mild concentric increased left ventricular wall thickness. 5. The left ventricular diastolic function is grade I diastolic dysfunction. 6. E/e' 20 is elevated. 7. Left atrial chamber dimension is mildly enlarged. 8. There is severe aortic valve sclerosis. 9. There is severe aortic valve stenosis with a peak velocity of 371 cm/s, mean gradient of 34 mmHg, and aortic valve area of 0.8 cm2. 10. There is trace aortic valve regurgitation. 11. The mitral valve has mildly calcified annulus. 12. No pulmonary hypertension, estimated pulmonary arterial systolic pressure is 18 mmHg. 13. There is trace pulmonic regurgitation. Left Ventricle E/e' 20 is elevated. Left ventricular chamber dimension is normal. Left ventricular systolic function is normal, estimated at 60-65%. There is mild concentric increased left ventricular wall thickness. The left ventricular diastolic function is grade I diastolic dysfunction. Right Ventricle Right ventricular systolic function is normal and with normal TAPSE 1.8 cm. Right ventricular chamber dimension is normal. Left Atria Left atrial chamber dimension is mildly enlarged. Right Atria Right atrial chamber dimension is normal. Aortic Valve The aortic valve is trileaflet. There is severe aortic valve sclerosis. There is severe aortic valve stenosis with a peak velocity of 371 cm/s, mean gradient of 34 mmHg, and aortic valve area of 0.8 cm2. There is trace aortic valve regurgitation. Pulmonic Valve There is trace pulmonic regurgitation. Mitral Valve The mitral valve has mildly calcified annulus. There is no mitral valve stenosis. There is no mitral valve regurgitation. Tricuspid Valve There is no tricuspid valve regurgitation. No pulmonary hypertension, estimated pulmonary arterial systolic pressure is 18 mmHg. Pericardium/Pleural There is no pericardial effusion. Inferior Vena Cava Normal inferior vena cava with >50% collapse upon inspiration consistent with normal right atrial pressure, 5 mmHg. Aorta The aortic root size at the sinus of Valsalva is normal. Left Ventricular Outflow Tract Name Value Normal LVOT 2D LVOT Diameter 1.8 cm LVOT Doppler LVOT Peak Gradient 4 mmHg LVOT Mean Gradient 3 mmHg LVOT VTI
== END 2022-09-23 14:29 | disposition home or self-care (01) ==
PROVIDERS: PCP Family Medicine; Visit Provider Family Medicine
DX: R01.1 Cardiac murmur, unspecified (principal); I35.0 Nonrheumatic aortic (valve) stenosis; E11.311 Type 2 diabetes mellitus with unspecified diabetic retinopathy with macular edema; I10 Essential (primary) hypertension
CPT/HCPCS: 93306

== ENCOUNTER 2023-03-29 14:40 | Outpatient (CLI) | payer MEDICARE, SELFPAY ==
--- NOTE | 2023-03-29 14:44 | ECHO_ITS ---
Patient Info Name: Cherie Packer Age: 82 years : 1940 Gender: Female Ht: 62 in Wt: 152 lbs BSA: 1.76 m2 HR: 77 bpm BP: 128 / 65 mmHg Heart Rhythm: Sinus Rhythm Technical Quality: Good Exam Date: 03/29/2023 2:51 PM Exam Location: Echo Lab Patient Status: Outpatient Admit Date: 03/29/2023 Staff Ordering Physician: Ahsan Meadows DO Mill Controller: Eva Doshi RDCS Attending Provider: Ahsan Meadows DO Referring Physician: Abdiel ALVARADO; Exam Type: CA echo doppler color flow Study Info Indications I35.0 - Nonrheumatic aortic (valve) stenosis Complete two-dimensional, color flow and Doppler transthoracic echocardiogram is performed. Summary 1. Complete two-dimensional, color flow and Doppler transthoracic echocardiogram is performed. 2. Left ventricular chamber dimension is normal. 3. Left ventricular systolic function is hyperdynamic, estimated at >70%. 4. There is mild concentric increased left ventricular wall thickness. 5. The left ventricular diastolic function is grade I diastolic dysfunction. 6. E/e' 27 is significantly elevated. 7. Left atrial chamber dimension is mildly enlarged. 8. There is severe aortic valve sclerosis. 9. There is severe aortic valve stenosis with a peak velocity of 511 cm/s, mean gradient of 56 mmHg, and aortic valve area of 0.9 cm2. 10. There is trace aortic valve regurgitation. 11. The mitral valve has mildly calcified leaflets and severely calcified annulus. 12. There is trace tricuspid valve regurgitation. 13. No pulmonary hypertension, estimated pulmonary arterial systolic pressure is 27 mmHg. Left Ventricle E/e' 27 is significantly elevated. Left ventricular chamber dimension is normal. Left ventricular systolic function is hyperdynamic, estimated at >70%. There is mild concentric increased left ventricular wall thickness. The left ventricular diastolic function is grade I diastolic dysfunction. Right Ventricle Right ventricular systolic function is normal. and with normal TAPSE 2.2 cm. Right ventricular chamber dimension is normal. Left Atria Left atrial chamber dimension is mildly enlarged. Right Atria Right atrial chamber dimension is normal. Aortic Valve The aortic valve is trileaflet. There is severe aortic valve sclerosis. There is severe aortic valve stenosis with a peak velocity of 511 cm/s, mean gradient of 56 mmHg, and aortic valve area of 0.9 cm2. There is trace aortic valve regurgitation. Pulmonic Valve There is no pulmonic regurgitation. Mitral Valve The mitral valve has mildly calcified leaflets and severely calcified annulus. There is no mitral valve stenosis. There is no mitral valve regurgitation. Tricuspid Valve There is trace tricuspid valve regurgitation. No pulmonary hypertension, estimated pulmonary arterial systolic pressure is 27 mmHg. Pericardium/Pleural There is no pericardial effusion. Inferior Vena Cava Normal inferior vena cava with >50% collapse upon inspiration consistent with normal right atrial pressure, 5 mmHg. Aorta The aortic root size at the sinus of Valsalva is normal. Left Ventricular Outflow Tract Name Value Normal LVOT 2D LVOT Diameter 2.0 cm LVOT Doppler LVOT Peak Gradient 7 mmHg
== END 2023-03-29 14:41 | disposition home or self-care (01) ==
LOC: ANHCARD 14:41
PROVIDERS: PCP Family Medicine; Visit Provider Internal Medicine Cardiovascular Disease
DX: I35.0 Nonrheumatic aortic (valve) stenosis (principal)
CPT/HCPCS: 93306

== ENCOUNTER 2023-05-25 08:11 | Outpatient (CLI) | payer MEDICARE, SELFPAY ==
--- NOTE | ~2023-05-25 | DEXA_ITS ---
Bone Density Report Name: POONAM AGUSTIN Age: 82 Sex: Female Ethnicity: White Date of : 1940 Indication: postmenopausal; screening for osteoporosis; height loss; Referring Provider: VAN GIVENS Study: Bone densitometry was performed. Exam Date: May 25, 2023 Accession number: [id number] Bone Density: Region BMD T-score Z-score Classification AP Spine(L1-L4) 1.026 -0.2 2.6 Normal Femoral Neck (Left) 0.625 -2.0 0.4 Osteopenia Total Hip (Left) 0.825 -1.0 1.3 Normal Femoral Neck (Right) 0.633 -2.0 0.5 Osteopenia Total Hip (Right) 0.857 -0.7 1.6 Normal Total Hip Mean 0.841 -0.9 1.5 Normal World Health Organization criteria for BMD impression classify patients as: Normal (T-score at or above -1.0), Osteopenia (T-score between -1.0 and -2.5), or Osteoporosis (T-score at or below -2.5). 10-year Fracture Risk(1): Major Osteoporotic Fracture 15% Hip Fracture 4.5% Reported Risk Factors: [place] (), Neck BMD=0.625, BMI=29.7 (1) FRAX(R) Version 3.08. Fracture probability calculated for an untreated patient. Fracture probability may be lower if the patient has received treatment. Clinical Information Provided by Patient: Patient maximum height was 63.5 Menopause Age: 49 Does not regularly consume dairy products Drinks caffeinated beverages Onset of menses at age 13 Number of children 2 Impression: The patient has low bone mass, based on the Left Femoral Neck T-score. The patient has an estimated ten-year risk of hip fracture of 4.5% and an estimated ten-year risk of major fracture of 15%, based on the WHO FRAX algorithm. Discussion: BONE DENSITY IS LOW AT ONE OR MORE SKELETAL SITES. THE PATIENT'S BMD AND CLINICAL RISK FACTORS CONTRIBUTE TO THIS PATIENT'S INCREASED RISK OF FRACTURE. This patient's lowest T-score is low at one or more skeletal sites. It meets the World Health Organization's (WHO) criteria for ?low bone mass? (T-score between -1.0 and -2.5). The patient's 10-year risk of hip fracture as calculated by FRAX exceeds the threshold where pharmacological therapy is recommended by the National Osteoporosis Foundation (NOF). However, all treatment decisions require clinical judgment and consideration of individual patient factors, including patient preferences, comorbidities, previous drug use, risk factors not captured in the FRAX model (e.g., frailty, falls, vitamin D deficiency, increased bone turnover, interval significant decline in bone density) and possible under or overestimation of fracture risk by FRAX. The patient should follow a healthful lifestyle (good nutrition with adequate calcium and vitamin D, and appropriate weight-bearing exercise). Follow-Up: Consider a repeat BMD and Vertebral Fracture Assessment (VFA) exam in 2 years or sooner if med
== END 2023-05-25 08:12 | disposition home or self-care (01) ==
PROVIDERS: PCP Family Medicine; Visit Provider Family Medicine
DX: Z78.0 Asymptomatic menopausal state (principal); M85.89 Other specified disorders of bone density and structure, multiple sites
CPT/HCPCS: 77080

== ENCOUNTER 2023-08-06 00:19 | Day surgery (SDC) | payer MEDICARE, SELFPAY ==
[2023-08-05 12:58] VITALS: BMI 27.5
[2023-08-06] VITALS (11 sets, daily range): BP systolic 115–170; BP diastolic 46–65; PULSE 55–78; RESP 12–21; TEMP 36.4; O2SAT 97–100; BMI 28.6
--- NOTE | 2023-08-06 07:12 | ECHO_ITS ---
Patient Info Name: Cherie Packer Age: 82 years : 1940 Gender: Female Ht: 63 in Wt: 155 lbs BSA: 1.79 m2 HR: 93 bpm BP: 151 / 58 mmHg Exam Date: 08/06/2023 7:45 AM Exam Location: Echo Lab Patient Status: Outpatient Admit Date: 08/06/2023 Staff Ordering Physician: Ahsan Meadows DO Commodity Merchant: Eva Doshi RDCS Attending Provider: Ahsan Meadows DO Referring Physician: Abdiel ALVARADO; Exam Type: CA echo transesophageal Study Info Indications I35.0 - Nonrheumatic aortic (valve) stenosis Complete two-dimensional, color flow and Doppler transesophageal study is performed. Procedure Details Risks/benefits/alternative to LAVERN discuss with patient and she is agreeable for procedure. She was monitored electrocardiographically, vitals and pulse ox. She was in normal rhythm, BP 150/80 mmHg, HR 80 bpm, pulse ox>95%. She was given Benzocaine spray x 2 to posterior pharynx, Fentanyl 25 mcg and Versed 2 mg IV given for conscious sedation. LAVERN probe advanced and she swallowed without incident. Multiple images obtained. Agitated saline injection x1. LAVERN withdrawn and no blood noted on tip. She tolerated procedure well with no complications. Summary 1. Left ventricular systolic function is normal with an ejection fraction of 60-65% by visual estimation. 2. Left ventricular chamber dimension is normal. 3. There is moderate concentric increased left ventricular wall thickness. 4. Left atrial chamber dimension is severely enlarged. 5. There is severe aortic valve sclerosis. 6. There is trace aortic valve regurgitation. 7. There is severe aortic valve stenosis at 0.6 cm2 by planimetry. 8. The mitral valve has moderately calcified annulus. 9. There is mild mitral valve regurgitation. 10. There is mild tricuspid valve regurgitation. Left Ventricle Left ventricular systolic function is normal with an ejection fraction of 60-65% by visual estimation. The left ventricular diastolic function is indeterminate as it was not assessed.. Left ventricular chamber dimension is normal. There is moderate concentric increased left ventricular wall thickness. Right Ventricle Right ventricular chamber dimension is normal. Right ventricular systolic function is normal. Left Atria Left atrial chamber dimension is severely enlarged. Right Atria Right atrial chamber dimension is normal. Atrial Septum Agitated saline injection opacified right side cardiac chambers without shunt to left side chambers. Intact interatrial septum visualized by 2D, color flow and agitated saline imaging. Aortic Valve There is severe aortic valve stenosis at 0.6 cm2 by planimetry. The aortic valve is trileaflet. There is severe aortic valve sclerosis. There is trace aortic valve regurgitation. Pulmonic Valve There is no pulmonic regurgitation. Mitral Valve The mitral valve has moderately calcified annulus. There is no mitral valve stenosis. There is mild mitral valve regurgitation. Tricuspid Valve RVSP is not measured. There is mild tricuspid valve regurgitation. Pericardium/Pleural There is no pericardial effusion. Inferior Vena Cava Inferior vena cava is not well visualized. Aorta The aortic root size at the sinus of Valsalva is normal. Report Signatures
== END 2023-08-06 09:50 | disposition home or self-care (01) ==
PROVIDERS: PCP Family Medicine; Visit Provider Internal Medicine Cardiovascular Disease
PROC: (CPT 93312; principal; 2023-08-06 08:00)
DX: I08.3 Combined rheumatic disorders of mitral, aortic and tricuspid valves (principal); I12.9 Hypertensive chronic kidney disease with stage 1 through stage 4 chronic kidney disease, or unspecified chronic kidney disease; E11.22 Type 2 diabetes mellitus with diabetic chronic kidney disease; N18.30 Chronic kidney disease, stage 3 unspecified; E78.5 Hyperlipidemia, unspecified; Z79.84 Long term (current) use of oral hypoglycemic drugs
CPT/HCPCS: 93312; 93320; 93325; J2250; J3010; J7040

== ENCOUNTER 2023-08-12 02:43 | Day surgery (SDC) | payer MEDICARE, SELFPAY ==
[2023-08-12] VITALS (9 sets, daily range): BP systolic 135–159; BP diastolic 51–66; PULSE 58–68; RESP 14–20; TEMP 36.2; O2SAT 96–100; BMI 29.0
[2023-08-12 07:39] LABS: Basophils Percent Auto 0.5 % (0.2-1.2); Eosinophils Absolute Auto 0.1 K/mm3 (0-0.3); Eosinophils Percent Auto 2.1 % (0-4.4); Hematocrit 35.4 % (37.0-47.0); Hemoglobin 11.8 g/dL (12.0-15.0); Immature Granulocyte Absolute 0.02 K/mm3 (0.00-0.031); Immature Granulocyte Percent A 0.4 % (0-0.5); Lymphocytes Absolute Auto 1.73 K/mm3 (0.9-3.2); Lymphocytes Percent Auto 30.5 % (18.3-44.2); Mean Corpuscular HGB Conc 33.3 g/dl (32-36); Mean Corpuscular Hemoglobin 30.6 pg (26-34); Mean Corpuscular Volume 91.9 fl (80-100); Mean Platelet Volume 10.9 fl (7.4-10.4); Monocytes Absolute Auto 0.4 K/mm3 (0.1-0.6); Monocytes Percent Auto 7.6 % (2.6-8.5); Neutrophils Absolute Auto 3.4 K/mm3 (1.3-6.7); Neutrophils Percent Auto 58.9 % (45.5-73.1); Platelet Count Result 226 k/mm3 (150-375); Red Blood Count 3.85 M/mm3 (4.2-5.4); White Blood Count 5.7 K/mm3 (4.5-10.0)
[2023-08-12 07:50] LABS: Anion Gap 7 mmol/L (4-12); Blood Urea Nitrogen 16 mg/dL (7-17); Calcium 9.4 mg/dL (8.4-10.2); Carbon Dioxide 27 mmol/L (22-30); Chloride 107 mmol/L (98-107); Estimated CRCL calculation 35 ml/min; Estimated Glomerular Filt Rate 53; Glucose 109 mg/dL (65-110); Potassium 4.2 mmol/L (3.4-5.0); Sodium 141 mmol/L (137-145)
[2023-08-12 08:30] LABS: Prothrombin Time 13.8 Seconds (11.1-14.7)
--- NOTE | 2023-08-12 09:00 | WPDHPUPDATE1 ---
History and Physical Update Update Date/Time: 08/12/23 09:00 History and Physical has been reviewed, including an updated exam of the patient. There are NO changes in the patient's condition. Risks, benefits, and alternatives have been discussed and questions answered. Patient agrees to proceed with procedure.
--- NOTE | 2023-08-12 09:00 | WPDMODSED ---
Moderate Sedation Note-Pt Data Patient Data Diagnosis: Severe aortic stenosis Present Complaint: Severe aortic stenosis Procedure to be performed/Plan: Coronary angiography, right heart cath Allergies Allergy/AdvReac Type Severity Reaction Status Date / Time No Known Allergies Allergy Verified 08/12/23 07:34 Home Medications Medication Instructions Recorded Confirmed Type latanoprost 0.005 % eye drops 1 drop ophthalmic (eye) QPM 11/15/19 08/12/23 History glipizide 10 mg tablet 10 mg PO BID #180 tabs 02/15/23 08/12/23 Rx lisinopril 10 mg tablet 10 mg PO DAILY #90 tabs 02/15/23 08/12/23 Rx metformin 1,000 mg tablet 1,000 mg PO BID #180 tabs 05/19/23 08/12/23 Rx Current Medications: Active Medications Sodium Chloride (Normal Saline Iv) 500 mls @ 100 mls/hr IV CONT .Q5H ANGEL Sedation/Anesthesia: No previous sedation/anesthesia problems (including family history). 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 She has 2 children. 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 She is . She is a lifelong nonsmoker. She does not use any alcohol marijuana illicit drugs. Her children are the durable power dress cap maker for healthcare. Code status full code Smoking status: Never smoker Second hand tobacco smoke exposure: Yes Alcohol intake: unknown Substance use: unknown Substance use type: does not use Lack of Transportation: No Lack of Food: Never True Current Housing: I Have Housing Concerned About Future Housing: No Difficulty Paying Gas/Electric Bills: No Difficulty Paying for Meds: No Currently Unemployed: No Education: Decline to Answer Difficulty w/ Childcare or Family Care: No Living arrangements: with family Spiritual care concerns: No Mod Sed Physical Exam Physical Exam Pre Procedural Exam: Normal: Appearance, Lungs, Heart Rate, Heart Rhythm, Neuro Exam, Abdomen, Extremities and Skin Hours since solid foods: 12 Hours since liquid intake: 8 Mallampati Classification: class III Internal Medicine - PN: Obj Da Vital Signs Vital Signs: Vital Signs - 24 hr 08/12/23 07:17 Temperature 36.2 C L Pulse Rate 68 Respiratory Rate 15 Blood Pressure 135/63 Pulse Oximetry 99 Oxygen Delivery Room Air Meds/Results Medications: Active Medications Generic Name Dose Route Start Last Admin Trade Name Freq PRN Reason Stop Dose Admin Sodium Chloride 500 mls @ 100 mls/hr 08/12/23 07:00 Normal Saline Iv IV CONT .Q5H ANGEL Labs 08/12/23 07:33 08/12/23 07:33 Labs: Laboratory Results - last 24 hr 08/12/23 07:33 WBC 5.7 RBC 3.85 L Hgb 11.8 L Hct 35.4 L MCV 91.9 MCH 30.6 MCHC 33.3 RDW 13.0 Plt Count 226 MPV 10.9 H Immature Gran % (Auto) 0.4 Neut % (Auto) 58.9 Lymph % (Auto) 30.5 [place] % (Auto) 7.6 Eos % (Auto) 2.1 Baso % (Auto) 0.5 Lymph # (Auto) 1.73 [place] # (Auto) 0.4 Eos # (Auto) 0.1 Baso # (Auto) 0.0 Abs Immat Gran (auto) 0.02 Absolute Neuts (auto) 3.4 Absolute Nucleated RBC 0.000 Nucleated RBC % 0.0 PT 13.8 INR 1.0
--- NOTE | 2023-08-12 09:01 | WPDCARDPROC ---
Cardiac Cath Procedure Note Date of procedure:: 08/12/23 Performing physician:: CATHETERIZATION LABORATORY REPORT Procedure Date: 08/12/2023 Cutter Barrel Drum: Terri Stewart M.D., [facility]? Referring Physician: Ahsan Meadows M.D. ? Anesthesia: Versed and Fentanyl were ordered and given in my presence at 09:05, procedure ended at 09:35. Supervision of nurse monitored moderate sedation with Versed and Fentanyl was provided for 30 minutes. Total of Versed 1mg and Fentanyl 25mcg were administered by the Production Support Manager RN Eboni Lim. Pre-op Diagnosis: Severe aortic stenosis Post-op Diagnosis: 1. Non-obstructive coronary artery disease 2. Elevated right heart filling pressures 3. Mild pulmonary hypertension with mean pulmonary artery pressure of 21mmHg 4. Preserved cardiac output of 5.1 and cardiac index of 2.9 by Stuart Procedure(s): 1. Moderate sedation 2. Ultrasound guided access of the right common femoral artery and the right femoral vein 3. Right heart cath 4. Coronary angiography Access Site: Right common femoral artery Right femoral vein Brief History and Clinical Indications: Patient is an 82 year old female who is referred for C/RHC for workup of severe . All risks, benefits and alternatives to left heart catheterization with or without percutaneous coronary intervention and right heart catheterization was discussed at length with the patient. Risk of complications including but not limited to bleeding, infection, arrhythmia, stroke, worsening kidney function, blood loss, groin hematoma, limb loss, emergency coronary artery bypass grafting, and even were discussed with the patient and all questions were answered. The patient understood and wished to proceed. Time out called, patient name, date of , medical record number, allergies, procedure performed, identify Cutter Barrel Drum, patient and staff member concurred with accurate data, procedure carried on. Findings: LEFT HEART CATHETERIZATION FINDINGS: 1. Left main: The left main coronary artery is widely patent without any significant obstructive disease. 2. Left anterior descending: The proximal and mid LAD has mild diffuse disease of up to 30%. The first two diagonal branches are of very small caliber. The third diagonal branch is a small caliber vessel with mild disease. No significant obstructive angiographic disease. 3. Ramus: Ramus has mild diffuse disease. 4. Left circumflex: The left circumflex artery has luminal irregularities. The OM branch is a large caliber vessel with mild diffuse disease. No significant obstructive angiographic disease. 5. Right coronary artery: The RCA has luminal irregularities without any significant obstructive angiographic disease. The RPLV branch is a small caliber vessel with moderate ostial stenosis. The RPDA has luminal irregularities. The RCA is the dominant vessel. 6. Left ventricle: The aortic valve was not crossed due to known severe aortic stenosis. RIGHT HEART CATHETERIZATION FINDINGS: Pressures (mmHg): RA: 5 RV: 35/8 PA: 37/10 with mean of 21mmHg PCWP: 12 Saturations (%): PA: 64.3% Arterial: 90.8% CO/CI: Stuart CO: 5.1 Stuart CI: 2.9 PVR (CONDE): 1.76 Description of Procedure: Informed consent signed and placed in the chart. Patient transferred to slab grinder room. Prepped and draped in usual sterile fashion. 2% lidocaine injected subcutaneously in right groin area. Micropuncture needle used to access right common femoral artery with Seldinger technique under fluoroscopic and ultrasound guidance. J wire advanced, micropuncture cannula placed. Right iliofemoral angiogram performed, access confirmed and micropuncture cannula exchanged for 5-FR sheath. Right femoral vein vein was accessed using micropuncture technique. 7-FR sheath placed. 7F Lewellen-Patrick catheter was advanced into the right side of the heart chambers and pressures were measured. 5F FL 4 diagnostic catheter engaged Left Main Coron
== END 2023-08-12 12:45 | disposition home or self-care (01) ==
PROVIDERS: PCP Family Medicine; Visit Provider Internal Medicine
PROC: (CPT 93566; principal; 2023-08-12 08:30)
DX: I35.0 Nonrheumatic aortic (valve) stenosis (principal); I25.10 Atherosclerotic heart disease of native coronary artery without angina pectoris; I27.20 Pulmonary hypertension, unspecified
CPT/HCPCS: 36415; 80048; 85025; 85610; 93456; A9270; C1760; C1887; C1894; G0269; J1644; J2250; J3010; J7040

== ENCOUNTER 2024-08-25 08:16 | Emergency (ER) | payer MEDICARE, SELFPAY ==
[2024-08-25] VITALS (27 sets, daily range): BP systolic 106–137; BP diastolic 52–76; PULSE 64–78; RESP 12–23; TEMP 36.4–36.8; O2SAT 94–100
--- NOTE | ~2024-08-25 | XR_ITS ---
XR chest 1V portable Ordering provider: Anam Corona MD History: 83 years Female with . weakness . Comparison: None. FINDINGS: MEDIASTINUM: The cardiac silhouette is slightly enlarged. Valve prosthesis is noted. LUNGS: No infiltrates, effusions or pneumothorax. Slightly prominent markings bilaterally. OTHER: No free air under the diaphragm. Degenerative changes of the spine. IMPRESSION: No acute cardiopulmonary pathology. Reviewed, dictated and finalized at location A.
--- NOTE | ~2024-08-25 | CT_ITS ---
EXAM: CT abdomen pelvis w con - 08/25/2024 11:55 CDT History: 83 years old Female with Weakness, Elevated lipase TECHNIQUE: Multidetector CT of the abdomen and pelvis with intravenous contrast. Coronal and sagitta l reformats were also provided for review. Automatic exposure control was used for this study. CONTRAST: 100 cc of Optiray 350 was used for this study. COMPARISON: 02/01/2022.. FINDINGS: VISUALIZED CHEST: Visualized lungs are clear. Punctate calcified granuloma in the left lung base. Sta tus post aortic valve replacement. ABDOMEN and PELVIS: LIVER: Within normal limits. GALLBLADDER: No calcified gallstones. BILE DUCTS: No dilatation. SPLEEN: Within normal limits. PANCREAS: Within normal limits. ADRENAL GLANDS: 1.6 cm nodule in the main limb of the right adrenal gland, unchanged since 2021. KIDNEYS and URETERS: No hydronephrosis or hydroureter. No nephroureterolithiasis. URINARY BLADDER: Within normal limits. STOMACH and BOWEL: No abnormal bowel wall thickening. No obstruction. Fluid-filled distended loops of small bowel, a nonspecific finding and can be seen in enteritis. REPRODUCTIVE ORGANS: Within normal limits. MESENTERY/PERITONEAL CAVITY: No free fluid or pneumoperitoneum. LYMPH NODES: No abdominal or pelvic lymphadenopathy. ABDOMINAL WALL: Within normal limits. VASCULATURE: Within normal limits. MUSCULOSKELETAL: Multilevel degenerative changes of the spine. IMPRESSION: Fluid-filled distended loops of small bowel, a nonspecific finding and can be seen in enteritis. Reviewed, dictated and finalized at location A. IMPRESSION: Fluid-filled distended loops of small bowel, a nonspecific finding and can be s een in enteritis.
--- NOTE | 2024-08-25 08:27 | ECG_ITS ---
Test Date: 2024-08-25 08:29:03 Measurements Intervals [place] Rate: 65 P: -27 [place]: 182 QRS: -20 QRSD: 100 T: 99 QT: 415 QTc: 433 Interpretive Statements SINUS RHYTHM LEFT VENTRICULAR HYPERTROPHY AND ST-T CHANGE POSSIBLE ANTERIOR MYOCARDIAL INFARCTION , OF INDETERMINATE AGE INFERIOR INFARCT, AGE INDETERMINATE ABNORMAL ECG No previous ECG available for comparison Electronically Signed On 08-25-2024 08:55:02 CDT by Ahsan Meadows D.O.
[2024-08-25 08:46] LABS: Basophils Percent Auto 0.5 % (0.2-1.2); Eosinophils Percent Auto 0.3 % (0-4.4); Hematocrit 38.6 % (37.0-47.0); Hemoglobin 12.8 g/dL (12.0-15.0); Immature Granulocyte Absolute 0.02 K/mm3 (0.00-0.031); Immature Granulocyte Percent A 0.3 % (0-0.5); Lymphocytes Absolute Auto 0.96 K/mm3 (0.9-3.2); Lymphocytes Percent Auto 16.3 % (18.3-44.2); Mean Corpuscular HGB Conc 33.2 g/dl (32-36); Mean Corpuscular Hemoglobin 29.1 pg (26-34); Mean Corpuscular Volume 87.7 fl (80-100); Mean Platelet Volume 10.3 fl (7.4-10.4); Monocytes Absolute Auto 0.3 K/mm3 (0.1-0.6); Monocytes Percent Auto 5.1 % (2.6-8.5); Neutrophils Absolute Auto 4.6 K/mm3 (1.3-6.7); Neutrophils Percent Auto 77.5 % (45.5-73.1); Platelet Count Result 265 k/mm3 (150-375); Red Cell Distribution Width 12.9 % (11.5-14.5); White Blood Count 5.9 K/mm3 (4.5-10.0)
--- NOTE | 2024-08-25 08:57 | ED_ITS ---
HPI - General Adult General Chief complaint: Weakness Stated complaint: possible heat exhaustion Time Seen by Provider: 08/25/24 08:28 History of Present Illness HPI narrative: This is an 83-year-old female presenting with weakness x1 week. The patient has air conditioning at home stopped working 1 week ago. It has been over 100? all week. Temperature in the house is around 85-86 degrees. Patient woke up today and just felt too weak to go of the house and go to the [employer]. She is denying fevers chest pain, difficulty breathing, abdominal pain, nausea vomiting diarrhea or urinary symptoms. She has had heat exhaustion in the past. Related Data Home Medications ?Medication ?Instructions ?Recorded ?Confirmed ?Last Taken ?Type latanoprost 0.005 % eye drops 1 drop ophthalmic (eye) QPM 11/15/19 08/18/23 08/12/23 07:00 History clopidogrel 75 mg tablet 75 mg PO 12/06/23 Unknown History metoprolol succinate 25 mg mg PO 12/06/23 Unknown History tablet,extended release 24 hr Allergies Allergy/AdvReac Type Severity Reaction Status Date / Time No Known Allergies Allergy Verified 08/25/24 08:30 [facility] Past Medical History Medical History ALINA (acute kidney injury) Small bowel obstruction Chronic kidney disease, stage III (moderate) Essential hypertension Glaucoma of right eye Heart murmur 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 She has 2 children. 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 She is . She is a lifelong nonsmoker. She does not use any alcohol marijuana illicit drugs. Her children are the durable power claims attorney for healthcare. Code status full code Smoking status: Never smoker Second hand tobacco smoke exposure: Yes Alcohol intake: unknown Substance use: unknown Substance use type: does not use Lack of Transportation: No Lack of Food: Never True Current Housing: I Have Housing Concerned About Future Housing: No Difficulty Paying Gas/Electric Bills: No Difficulty Paying for Meds: No Currently Unemployed: No Education: Decline to Answer Difficulty w/ Childcare or Family Care: No Living arrangements: with family Spiritual care concerns: No Exam 2 Narrative: APPEARANCE: No apparent distress. Head: atraumatic. EYES: EOMI, NOSE: Atraumatic NECK: Trachea midline RESPIRATORY: No increased rate of breathing clear to auscultation CARDIOVASCULAR: RRR, no peripheral edema ABDOMINAL: Non-distended soft nontender MUSCULOSKELETAl: No obvious deformities NEURO: Alert. Moving 4/4 extremities SKIN:: Warm, dry. Normal color PSYCHIATRIC: Normal affect Course Vital Signs Vital signs: Vital Signs Temperature 97.6 F 08/25/24 08:22 Pulse Rate 73 08/25/24 08:22 Respiratory Rate 13 08/25/24 08:22 Blood Pressure 137/69 08/25/24 08:22 Pulse Oximetry 96 08/25/24 08:22 Oxygen Delivery Room Air 08/25/24 08:22 Temperature 97.6 F 08/25/24 08:22 Pulse Rate 68 08/25/24 12:08 Respiratory Rate 18 08/25/24 12:08 Blood Pressure 117/71 08/25/24 12:06 Pulse Oximetry 94 08/25/24 12:30 Oxygen Delivery Room Air 08/25/24 08:22 Medical Decision Making [facility] Narrative Medical decision making narrative: -Course: 83-year-old female presenting with 1 week of weakness in the setting of elevated temperatures at home due to malfunction air conditioning. Patient's initial workup was significant for glucose of 44. Patient was fed food although she did not like the taste or sandwiches and ended up getting an amp of D50 with improvement in blood sugar. She was then got a diet in cafeteria and her blood sugars were monitored for several hours with no change. Patient states that she has not been eating very much over the last several days but she was still taking her glipizide which is likely the cause of her hypoglycemia. The rest of her workup was significant for a lipase of 1400. The patient does not report any abdominal pain. I am unable to elicit any abdominal pain with the palpation of the abdomen. She has not had nausea and vomiting. No evidence of pancreatitis on CT scan. No elevations in liver enzymes to indicate an obstructive process. This was discussed with patient she does not want to be admitted for further evaluation which is reasonable as she is so no clinical signs of pancreatitis. She should follow up with Dr. Clinton early next week for repeat lab work and additional imaging as indicated. On re-evaluation patient is resting comfortably in bed. She states that she feels much better. She has been able to ambulate around the emergency department with a steady gait. Her vital signs are stable. We discussed admission versus discharge she is adamant that she does not want to be admitted. She has good follow-up with her PCP. Patient be discharged with return precautions. Her son says they are getting the air conditioning fixed. -DDX includes but is not limited to: Heat exhaustion, UTI, pneumonia, dehydration, sepsis, kidney failure Independent EKG interpretation: Rhythm [sinus], Rate [73], [place] -[normal], [place] -[normal], QRS [narrow], QTC [normal], T waves -[negative for concerning inversions], ST Segments - [Negative for concerning elevations] Final interpretations: [Normal Sinus Rhythm] Vital Signs Vital Signs: Vital Signs Temperature 97.6 F 08/25/24 08:22 Pulse Rate 73 08/25/24 08:22 Respiratory Rate 13 08/25/24 08:22 Blood Pressure 137/69 08/25/24 08:22 Pulse Oximetry 96 08/25/24 08:22 Oxygen Delivery Room Air 08/25/24 08:22 Temperature 97.6 F 08/25/24 08:22 Pulse Rate 68 08/25/24 12:08 Respiratory Rate 18 08/25/24 12:08 Blood Pressure 117/71 08/25/24 12:06 Pulse Oximetry 94 08/25/24 12:30 Oxygen Delivery Room Air 08/25/24 08:22 Lab Data 08/25/24 08:41 08/25/24 08:41 Labs: Lab Results 08/25/24 08/25/24 08/25/24 Range/Units 08:41 08:53 09:10 WBC 5.9 (4.5-10.0) K/mm3 RBC 4.40 (4.2-5.4) M/mm3 Hgb 12.8 (12.0-15.0) g/dL Hct 38.6 (37.0-47.0) % MCV 87.7 (80-100) fl MCH 29.1 (26-34) pg MCHC 33.2 (32-36) g/dl RDW 12.9 (11.5-14.5) % Plt Count 265 (150-375) k/mm3 MPV 10.3 (7.4-10.4) fl Immature Gran % (Auto) 0.3 (0-0.5) % Neut % (Auto) 77.5 H (45.5-73.1) % Lymph % (Auto) 16.3 L (18.3-44.2) % [place] % (Auto) 5.1 (2.6-8.5) % Eos % (Auto) 0.3 (0-4.4) % Baso % (Auto) 0.5 (0.2-1.2) % Lymph # (Auto) 0.96 (0.9-3.2) K/mm3 [place] # (Auto) 0.3 (0.1-0.6) K/mm3 Eos # (Auto) 0.0 (0-0.3) K/mm3 Baso # (Auto) 0.0 (0.0-0.1) K/mm3 Abs Immat Gran (auto) 0.02 (0.00-0.031) K/mm3 Absolute Neuts (auto) 4.6 (1.3-6.7) K/mm3 Absolute Nucleated RBC 0.000 (0.0-0.012) K/mm3 Nucleated RBC % 0.0 (0.0-0.2) % PT 13.6 (11.1-14.7) Seconds INR 1.0 APTT 25.9 (22.3-36.8) Seconds Sodium 139 (137-145) mmol/L Potassium 4.1 (3.4-5.0) mmol/L Chloride 105 (98-107) mmol/L Carbon Dioxide 20 L (22-30) mmol/L Anion Gap 14 H (4-12) mmol/L BUN 30 H D (7-17) mg/dL Creatinine 1.16 H (0.7-1.0) mg/dL Estim Creat Clear Calc 29 ml/min Estimated GFR 45 L (59 - ) Glucose 46 L* (65-110) mg/dL POC Capillary Glucose 44 L* 38 L* (65-105) mg/dl Lactic Acid (0.7-2.0) mmol/L Calcium 9.9 (8.4-10.2) mg/dL Phosphorus 3.7 (2.5-4.5) mg/dL Magnesium 1.4 L (1.6-2.3) mg/dL Total Bilirubin 0.5 (0.2-1.3) mg/dL AST 32 (14-36) U/L ALT 15 (6-35) U/L Alkaline Phosphatase 55 (38-126) U/L Troponin I 0.014 (0.000-0.034) ng/mL NT-Pro-B Natriuret Pep 85 (19.9-100) pg/mL Total Protein 7.7 (6.3-8.2) g/dL Albumin 4.5 (3.5-5.1) g/dL Lipase 1416 H (23-300) U/L TSH (Reflex) 1.250 (0.465-4.68) uIU/mL Urine Color (Yellow) Urine Appearance (Clear) Urine pH (5.0-9.0) Ur Specific [place] (1.001-1.035) Urine Protein (Negative) mg/dL Urine Glucose (UA) (Negative) mg/dL Urine Ketones (Negative) mg/dL Ur Blood (Man) (Negative) Urine Nitrate (Negative) Urine Bilirubin (Negative) Urine Urobilinogen (<2.0) mg/dL Leukocyte Esterase Rfl (Negative) RISHI/UL Influenza A (RT-PCR) (Negative) Influenza B (RT-PCR) (Negative) RSV (RT-PCR) (Negative) SARS-CoV-2 RNA (RT-PCR) (Negative) 08/25/24 08/25/24 08/25/24 Range/Units 09:38 09:41 11:32 WBC (4.5-10.0) K/mm3 RBC (4.2-5.4) M/mm3 Hgb (12.0-15.0) g/dL Hct (37.0-47.0) % MCV (80-100) fl MCH (26-34) pg MCHC (32-36) g/dl RDW (11.5-14.5) % Plt Count (150-375) k/mm3 MPV (7.4-10.4) fl Immature Gran % (Auto) (0-0.5) % Neut % (Auto) (45.5-73.1) % Lymph % (Auto) (18.3-44.2) % [place] % (Auto) (2.6-8.5) % Eos % (Auto) (0-4.4) % Baso % (Auto) (0.2-1.2) % Lymph # (Auto) (0.9-3.2) K/mm3 [place] # (Auto) (0.1-0.6) K/mm3 Eos # (Auto) (0-0.3) K/mm3 Baso # (Auto) (0.0-0.1) K/mm3 Abs Immat Gran (auto) (0.00-0.031) K/mm3 Absolute Neuts (auto) (1.3-6.7) K/mm3 Absolute Nucleated RBC (0.0-0.012) K/mm3 Nucleated RBC % (0.0-0.2) % PT (11.1-14.7) Seconds INR APTT (22.3-36.8) Seconds Sodium (137-145) mmol/L Potassium (3.4-5.0) mmol/L Chloride (98-107) mmol/L Carbon Dioxide (22-30) mmol/L Anion Gap (4-12) mmol/L BUN (7-17) mg/dL Creatinine (0.7-1.0) mg/dL Estim Creat Clear Calc ml/min Estimated GFR (59 - ) Glucose (65-110) mg/dL POC Capillary Glucose 168 H 160 H (65-105) mg/dl Lactic Acid 1.3 (0.7-2.0) mmol/L Calcium (8.4-10.2) mg/dL Phosphorus (2.5-4.5) mg/dL Magnesium (1.6-2.3) mg/dL Total Bilirubin (0.2-1.3) mg/dL AST (14-36) U/L ALT (6-35) U/L Alkaline Phosphatase (38-126) U/L Troponin I (0.000-0.034) ng/mL NT-Pro-B Natriuret Pep (19.9-100) pg/mL Total Protein (6.3-8.2) g/dL Albumin (3.5-5.1) g/dL Lipase (23-300) U/L TSH (Reflex) (0.465-4.68) uIU/mL Urine Color Yellow (Yellow) Urine Appearance Clear (Clear) Urine pH 5.0 (5.0-9.0) Ur Specific [place] 1.021 (1.001-1.035) Urine Protein Negative (Negative) mg/dL Urine Glucose (UA) 3+ H (Negative) mg/dL Urine Ketones 1+ H (Negative) mg/dL Ur Blood (Man) Negative (Negative) Urine Nitrate Negative (Negative) Urine Bilirubin Negative (Negative) Urine Urobilinogen 0.2 (<2.0) mg/dL Leukocyte Esterase Rfl Negative (Negative) RISHI/UL Influenza A (RT-PCR) Negative (Negative) Influenza B (RT-PCR) Negative (Negative) RSV (RT-PCR) Negative (Negative) SARS-CoV-2 RNA (RT-PCR) Negative (Negative) 08/25/24 Range/Units 12:44 WBC (4.5-10.0) K/mm3 RBC (4.2-5.4) M/mm3 Hgb (12.0-15.0) g/dL Hct (37.0-47.0) % MCV (80-100) fl MCH (26-34) pg MCHC (32-36) g/dl RDW (11.5-14.5) % Plt Count (150-375) k/mm3 MPV (7.4-10.4) fl Immature Gran % (Auto) (0-0.5) % Neut % (Auto) (45.5-73.1) % Lymph % (Auto) (18.3-44.2) % [place] % (Auto) (2.6-8.5) % Eos % (Auto) (0-4.4) % Baso % (Auto) (0.2-1.2) % Lymph # (Auto) (0.9-3.2) K/mm3 [place] # (Auto) (0.1-0.6) K/mm3 Eos # (Auto) (0-0.3) K/mm3 Baso # (Auto) (0.0-0.1) K/mm3 Abs Immat Gran (auto) (0.00-0.031) K/mm3 Absolute Neuts (auto) (1.3-6.7) K/mm3 Absolute Nucleated RBC (0.0-0.012) K/mm3 Nucleated RBC % (0.0-0.2) % PT (11.1-14.7) Seconds INR APTT (22.3-36.8) Seconds Sodium (137-145) mmol/L Potassium (3.4-5.0) mmol/L Chloride (98-107) mmol/L Carbon Dioxide (22-30) mmol/L Anion Gap (4-12) mmol/L BUN (7-17) mg/dL Creatinine (0.7-1.0) mg/dL Estim Creat Clear Calc ml/min Estimated GFR (59 - ) Glucose (65-110) mg/dL POC Capillary Glucose (65-105) mg/dl Lactic Acid (0.7-2.0) mmol/L Calcium (8.4-10.2) mg/dL Phosphorus (2.5-4.5) mg/dL Magnesium (1.6-2.3) mg/dL Total Bilirubin (0.2-1.3) mg/dL AST (14-36) U/L ALT (6-35) U/L Alkaline Phosphatase (38-126) U/L Troponin I Pending (0.000-0.034) ng/mL NT-Pro-B Natriuret Pep (19.9-100) pg/mL Total Protein (6.3-8.2) g/dL Albumin (3.5-5.1) g/dL Lipase (23-300) U/L TSH (Reflex) (0.465-4.68) uIU/mL Urine Color (Yellow) Urine Appearance (Clear) Urine pH (5.0-9.0) Ur Specific [place] (1.001-1.035) Urine Protein (Negative) mg/dL Urine Glucose (UA) (Negative) mg/dL Urine Ketones (Negative) mg/dL Ur Blood (Man) (Negative) Urine Nitrate (Negative) Urine Bilirubin (Negative) Urine Urobilinogen (<2.0) mg/dL Leukocyte Esterase Rfl (Negative) RISHI/UL Influenza A (RT-PCR) (Negative) Influenza B (RT-PCR) (Negative) RSV (RT-PCR) (Negative) SARS-CoV-2 RNA (RT-PCR) (Negative) Discharge Plan Discharge Clinical Impression: Heat exhaustion, Hypoglycemia, Dehydration, Elevated lipase Patient Disposition: Home Condition: Stable Instructions: Antibiotic Form, Dehydration (DC) Additional Instructions: You were seen in the emergency department for weakness. You were found to be dehydrated and to have low blood sugar. Please make sure you are eating and drinking as normal especially if you continue to take your diabetic medications. Your lipase was elevated at 1400. You are not having any abdominal pain or any clinical symptoms pancreatitis/liver injury. Please call Dr. Clinton on wednesday to repeat lab work and possibly additional imaging. If you develop abdominal pain, fevers weakness or any new or worsening symptoms please return to ED immediately. Patient Language: Austrian Prescriptions: No Action Mounjaro 2.5 mg/0.5 mL pen injector 2.5 mg subcut WEEKLY Qty: 2 0RF Rx Instructions: for 4 weeks fluticasone propion-salmeterol [Advair HFA] 115-21 mcg/actuation HFA aerosol inhaler 2 puff inhalation BID Qty: 12 1RF latanoprost 0.005 % drops 1 drop EACH EYE QPM metoprolol succinate 25 mg tablet extended release 24 hr PO clopidogrel 75 mg tablet 75 mg PO glipizide 10 mg tablet 10 mg PO BID Qty: 180 1RF lisinopril 10 mg tablet 10 mg PO DAILY Qty: 90 1RF metformin 1,000 mg tablet See Rx Instructions .ROUTE .COMPLEX Qty: 180 0RF Dose Instruction: Take 1 tablet by mouth twice daily Rx Instructions: Take 1 tablet by mouth twice daily budesonide-formoterol [Symbicort] 160-4.5 mcg/actuation HFA aerosol inhaler 2 puff inhalation Q12H Qty: 10.2 1RF Follow-up/Referrals: Nate Clinton MD [Primary Care Provider] - 3 Days (Seen for heat exhaustion/dehydration. Lipase elevated but asymptomatic. will need repeat lab work )
[2024-08-25 08:58] LABS: Prothrombin Time 13.6 Seconds (11.1-14.7)
[2024-08-25 08:58] LABS: Glucose Point of Care 44 mg/dl (65-105)
[2024-08-25 08:59] LABS: Partial Thromboplastin Time 25.9 Seconds (22.3-36.8)
--- NOTE | 2024-08-25 09:02 | PC.NURSE ---
made aware of critical BS. VORB to provide pt with food and drink. Pt given juice, turkey sandwich, jello, and pretzels.
[2024-08-25] MEDS: LACTATED RINGERS 1,000 ML 999 ML IV CONT ×2 (09:08→09:42)
[2024-08-25 09:09] LABS: Alanine Aminotransferase 15 U/L (6-35); Albumin Level 4.5 g/dL (3.5-5.1); Alkaline Phosphatase 55 U/L (38-126); Anion Gap 14 mmol/L (4-12); Aspartate Amino Transferase 32 U/L (14-36); Bilirubin,Total 0.5 mg/dL (0.2-1.3); Blood Urea Nitrogen 30 mg/dL (7-17); Calcium 9.9 mg/dL (8.4-10.2); Carbon Dioxide 20 mmol/L (22-30); Chloride 105 mmol/L (98-107); Estimated CRCL calculation 29 ml/min; Estimated Glomerular Filt Rate 45; Glucose 46 mg/dL (65-110); Lipase 1416 U/L (23-300); Magnesium 1.4 mg/dL (1.6-2.3); Phosphorus 3.7 mg/dL (2.5-4.5); Potassium 4.1 mmol/L (3.4-5.0); Sodium 139 mmol/L (137-145); Total Protein 7.7 g/dL (6.3-8.2)
[2024-08-25] MEDS: DEXTROSE 50% 25 GM/50 ML SYRINGE (09:15)
[2024-08-25 09:17] LABS: NT Pro B Type Natriuretic Pept 85 pg/mL (19.9-100); Troponin I 0.014 ng/mL (0.000-0.034)
[2024-08-25 09:21] LABS: Glucose Point of Care 38 mg/dl (65-105)
[2024-08-25 09:43] LABS: Glucose Point of Care 168 mg/dl (65-105)
[2024-08-25 09:52] LABS: Add Urine Microscopic? NO; Appearance Urine Clear (Clear); Bilirubin Urine Negative (Negative); Blood Urine Negative (Negative); Color Urine Yellow (Yellow); Glucose Urine UA 3+ mg/dL (Negative); Ketones Urine 1+ mg/dL (Negative); Leukocyte Esterase Ur Negative LEU/UL (Negative); Nitrate Urine Negative (Negative); Protein Urine Negative (Negative); Specific Grav Ur 1.021 (1.001-1.035); Urobilinogen Urine 0.2 mg/dL (<2.0)
[2024-08-25 10:07] LABS: Lactic Acid Reflex 1.3 mmol/L (0.7-2.0)
[2024-08-25 10:27] LABS: Influenza A QL RT-PCR Negative (Negative); Influenza B QL RT-PCR Negative (Negative); RSV RNA, RT-PCR Negative (Negative); SARS-CoV-2 RNA PCR Negative (Negative)
[2024-08-25 11:41] LABS: Glucose Point of Care 160 mg/dl (65-105)
--- NOTE | 2024-08-25 12:26 | ECG_ITS ---
Test Date: 2024-08-25 12:36:49 Measurements Intervals [place] Rate: 73 P: 44 MD: 186 QRS: -1 QRSD: 94 T: 86 QT: 395 QTc: 437 Interpretive Statements SINUS RHYTHM LEFT VENTRICULAR HYPERTROPHY WITH ST-T CHANGE CONSIDER ANTERIOR INFARCT, AGE INDETERMINATE CONSIDER INFERIOR INFARCT, AGE INDETERMINATE BASELINE ARTIFACT- I, II, III, AVR, AVL, AVF, V3-V6 ABNORMAL ECG Compared to ECG 08/25/2024 08:29:03 NO SIGNIFICANT CHANGE Electronically Signed On 08-25-2024 12:55:36 CDT by Ahsan Meadows D.O.
[2024-08-25 13:28] LABS: Troponin I < 0.012 ng/mL (0.000-0.034)
--- NOTE | 2024-08-25 13:40 | PC.NURSE ---
Reg Lunch tray ordered
[2024-08-25] MEDS: MAGNESIUM SULF 2 GM/WATER 50ML 2 GM/50 ML BAG IVPB (14:35)
[2024-08-25 14:39] LABS: Glucose Point of Care 207 mg/dl (65-105)
== END 2024-08-25 16:35 | disposition home or self-care (01) ==
PROVIDERS: Emergency Provider Emergency Medicine; PCP Family Medicine
DX: T67.5XXA Heat exhaustion, unspecified, initial encounter (principal); E11.649 Type 2 diabetes mellitus with hypoglycemia without coma; R74.8 Abnormal levels of other serum enzymes; N18.30 Chronic kidney disease, stage 3 unspecified; I12.9 Hypertensive chronic kidney disease with stage 1 through stage 4 chronic kidney disease, or unspecified chronic kidney disease; E11.22 Type 2 diabetes mellitus with diabetic chronic kidney disease; H40.9 Unspecified glaucoma; E86.0 Dehydration; Z20.822 Contact with and (suspected) exposure to COVID-19
CPT/HCPCS: 36415; 71045; 74177; 80053; 81003; 82948; 83605; 83690; 83735; 83880; 84100; 84443; 84484; 85025; 85610; 85730; 87637; 93005; 96361; 96365; 96366; 96375; 99284; J3475; J7120; Q9967

== ENCOUNTER 2024-10-08 15:15 | Emergency (ER) | payer MEDICARE, SELFPAY ==
--- NOTE | ~2024-10-08 | XR_ITS ---
EXAMINATION: XR chest 2V Exam Date/Time: 10/08/2024 16:27 CDT HISTORY: hypoglycemia Comparison: X-ray chest and CT abdomen pelvis 08/25/2024. RESULT: Lines, tubes, and devices: Cardiac valve replacement. Lungs and pleura: Clear. Cardiomediastinal silhouette: Stable. Other: No acute osseous or upper abdominal finding. Stable compression deformity at T11. IMPRESSION: No acute cardiopulmonary process. Reviewed, dictated and finalized at location K.
[2024-10-08 15:21] VITALS: BP 146/53; PULSE 57; RESP 16; TEMP 36.6; O2SAT 100
--- NOTE | 2024-10-08 15:31 | ECG_ITS ---
Test Date: 2024-10-08 16:02:13 Measurements Intervals [place] Rate: 57 P: 0 [place]: 0 QRS: -11 QRSD: 90 T: 48 QT: 434 QTc: 426 Interpretive Statements SINUS BRADYCARDIA LEFT VENTRICULAR HYPERTROPHY WITH ST-T CHANGE ANTEROSEPTAL INFARCT, AGE INDETERMINATE CONSIDER INFERIOR INFARCT, AGE INDETERMINATE BASELINE ARTIFACT- I, II, III, AVR, AVL, AVF, V1-V6 ABNORMAL ECG HEART RATE HAS DECREASED Electronically Signed On 10-08-2024 17:32:50 CDT by Ahsan Meadows D.O.
--- OUTSIDE RECORDS SUMMARY | 2024-10-08 15:35 | XMS_ITS | Continuity of Care Document ---
Author Organization [facility] Address [address] Gross [address] [place] [phone] Phone Care Team Providers Care Museum Specialist Name Role Phone Maggie Doshi OD Unavailable Unavailable Allergies, Adverse Reactions, Alerts Substance Reaction Status Criticality ibuprofen Active No Information Medications Medication Instructions Dosage Effective Dates (start - stop) Status Comments Latanoprost 0.005 % Ophthalmic Solution INSTILL 1 DROP INTO EACH EYE ONCE DAILY AT BEDTIME - Active metformin 500 mg tablet take 2 tablet by oral route every day with morning and evening meals 1000 MG - Active glipizide 10 mg tablet take 1 tablet by oral route every day before a meal 10 MG - Active lisinopril 10 mg tablet take 1 tablet by oral route every day 10 MG - Active Procedures Procedure Date No Charge Optomap Fundus Photos 023 SCODI, Retina Office/outpatient Visit, Est No Charge Optomap Fundus Photos Visual Field Examination(s) SCODI, Retina Office/outpatient Visit, Est SCODI, Posterior Segment No Charge Optomap Fundus Photos 022 Eye Exam & Treatment Charge For A No Show Fundus Photography W/ Report Visual Field Examination(s) Office/outpatient Visit, Est SCODI, Retina Office/outpatient Visit, Est No Charge Optomap Fundus Photos 021 No Charge Refraction SCODI, Posterior Segment No Charge Optomap Fundus Photos Eye Exam & Treatment Fundus Photography W/ Report Visual Field Examination(s) Office/outpatient Visit, Est No Charge GDX Retina SCODI, Posterior Segment Eye Exam & Treatment Fundus Photography W/ Report Office/outpatient Visit, Est Visual Field Examination(s) Fundus Photography W/ Report Office/outpatient Visit, Est Corneal Pachymetry No Charge Refraction Visual Field Examination(s) SCODI, Posterior Segment Office/outpatient Visit, Est No Charge GDX Retina No Charge Refraction Eye Exam, New Patient Eye Exam & Treatment Dilated Retinal Exam W Interpretation No Dilated Macular Or Fundus Exam Findings Communicat Macular Or Fundus Exam Performed 2009 Communication Performed Injection Eye Drug Kenalog/Triamcinolone Acetonide Inj Ophthalmoscopy, Subsequent Ophthalmoscopy, Subsequent Optic Nerve Topography Optic Nerve Topography Optic Nerve Topography Optic Nerve Topography Eye Exam & Treatment Dilated Retinal Exam W Interpretation Ap Dilated Macular Or Fundus Exam Findings Communicat Macular Or Fundus Exam Performed 2009 Communication Performed Ophthalmoscopy, Subsequent Ophthalmoscopy, Subsequent Post-op Follow-up Visit After Cataract Laser Surgery Eye Exam & Treatment Eye Exam Established Pt Post-op Follow-up Visit Eye Exam Established Pt Dilated Retinal Exam W Interpretation No Dilated Macular Or Fundus Exam Findings Communicat Macular Or Fundus Exam Performed 2008 Communication Performed Ophthalmoscopy, Subsequent Ophthalmoscopy, Subsequent Post-op Follow-up Visit Post-op Follow-up Visit Remove Cataract, Insert Lens PreOp Assessment Performed Office/outpatient Visit, Est [employer] Oct Eye Exam Established Pt Oct Dilated Retinal Exam W Interpretation Oc t Dilated Macular Or Fundus Exam Findings Communicat Oct Macular Or Fundus Exam Performed 2008 Communication Performed Ophthalmoscopy, Subsequent Ophthalmoscopy, Subsequent Eye Exam Established Pt Dilated Retinal Exam W Interpretation Au Dilated Macular Or Fundus Exam Findings Communicat Macular Or Fundus Exam Performed 2008 Communication Performed Ophthalmoscopy, Subsequent Ophthalmoscopy, Subsequent Post-op Follow-up Visit Ophthalmoscopy, Subsequent Ophthalmoscopy, Subsequent Injection Eye Drug Kenalog/Triamcinolone Acetonide Inj Treatment Of Retinal Lesion Eye Exam & Treatment Ophthalmoscopy, Subsequent Ophthalmoscopy, Subsequent Optic Nerve Topography Optic Nerve Topography Eye Exam Established Pt Dilated Retinal Exam W Interpretation De Macular Or Fundus Exam Performed 2007 Communication Not Performed Ophthalmoscopy, Subsequent Ophthalmoscopy, Subsequent Office Consultation Dilated Retinal Exam W Interpretation Se Dilated Macular Or Fundus Exam Findings Communicat Macular Or Fundus Exam Performed 2007 Communication Performed Ophthalmoscopy Ophthalmoscopy Office/outpatient Visit, Est Dilated Retinal Exam W Interpretation Ju Dilated Macular Or Fundus Exam Findings Communicat Macular Or Fundus Exam Performed 2007 Communication Not Performed Office/outpatient Visit, Est Visual Functional Status Assessed Office/outpatient Visit, Est Post-op Follow-up Visit Post-op Follow-up Visit Post-op Follow-up Visit Remove Cataract, Insert Lens Eye Exam, New Patient Echo Exam Of Eye Advance Directives Directive Yes / No Effective Date File Name No Information Encounters Encounter Description Practice Location Reason(s) For Visit Diagnoses Date Provider Providers Copied on [facility], [address], [place], [place], [address], tel:[phone] [place] Profession[place] No Information 5 Glenda OD Maggie. [facility], [address], [place], [place], [address], . tel:[phone] [facility], [address], [place], [place], [address], tel:[phone] [place] [employer] [place] No Information 5 Glenda OD Maggie. [facility], [address], [place], [place], [address], [place]. tel:[phone] Office/outpat ient Visit, Est [facility], [address], [place], [place], [address], tel:[phone] [place] Pain/Darkne ss (chief complaint) Left eye painVitreous degeneration , bilateralTyp e 2 diab with mild nonp rtnop with macular edema, l eyeType 2 diab with mild nonp rtnop without mclr edema, r eye Sep-2 0 3 Glenda OD Maggie. [facility], [address], [place], [place], [address], . tel:[phone] Wade Koroma MD.Referring Provider: [place], [address], [place], [address]. tel:[phone] Office/outpat ient Visit, Est [facility], [address], [place], [place], [address], [place] tel:[phone] [place] Complete Exam (chief complaint) Exudative age-related macular degeneration of right eye with inactive choroidal neovasculari zationPrimar y open-angle glaucoma, right eye, severe stageType 2 diab with mod nonp rtnop without macular edema, bi 3 Maki OD Alma Rosa. [address] [place] [address] [employer] [address], [address], [place], [place], [address], [place]. tel:[phone] Wade Koroma MD.Referring Provider: Alma Rosa Gambino [place], [address] [place] [address] [address], [place], [address]. tel:[phone] [facility], [address], [place], [place], [address], [place] tel:[phone] [place] diabetic eye exam (chief complaint) Presence of intraocular lensPrimary open-angle glaucoma, right eye, severe stagePrimary open-angle glaucoma, left eye, mild stageCystoid macular edema of left eyeType 2 diabetes mellitus without complication sOther secondary cataract, left eye 2 Kirk Chandler. [address] [facility], [address], [place], [place], [address], [place]. tel:[phone] Wade Koroma MD.Referring Provider: Ramesh Avery, [address] [facility] [address], [place], [address]. tel:[phone] [facility], [address], [place], [place], [address], [place] tel:[phone] [place] No Information 2 Kirk Chandler. [address] [facility], [address], [place], [place], [address], [place]. tel:[phone] Referring Provider: Ramesh Avery, [address] [facility] [address], [place], [address]. tel:[phone] Office/outpat ient Visit, [facility], [address] [place] [address] [address], [place], [place], [address], [place] tel:[phone] [place] 6 mo IOP check (chief complaint) Primary open-angle glaucoma, right eye, severe stagePrimary open-angle glaucoma, left eye, mild stageBilater al nuclear sclerosis cataract 1 Kirk Chandler. [address] [facility], [facility] [place], [address], [place]. tel:[phone] Specialist: Wade Koroma MD, [address] [place] [address], [address]. tel:[phone] ng Provider: Ramesh Avery, [address] [facility] [address], [place], [address]. tel:[phone] Office/outpat ient Visit, [facility], [address] [place] [address] [address], [place], [place], [address], [place] tel:[phone] [place] Professiona l Blurry/dark vision (chief complaint) Primary open-angle glaucoma, right eye, severe stagePrimary open-angle glaucoma, left eye, mild stageOther secondary cataract, left eyeCystoid macular edema of left eye 1 Kirk Chandler. [address] [facility], [address], [place], [place], [address], [place]. tel:[phone] [place]: [place], [address] [place], [address]. tel:[phone] ng Provider: Ramesh Avery, [address], [place], [address]. tel:[phone] [facility], [address] [place] [address] [address], [place], [place], [address], tel:[phone] [place] 6 month Complete (chief complaint) Primary open-angle glaucoma, right eye, severe stagePrimary open-angle glaucoma, left eye, mild stagePresenc e of intraocular lensOther secondary cataract, left eyeType 2 diabetes mellitus without complication sDrusen (degenerativ e) of macula, bilateralVit reous degeneration , left eye Apr-0 1 Kirk Chandler. [address], [address], [place], [place], [address], . tel:[phone] Referring Provider: Ramesh Avery, [address] [facility] [address], [place], [address]. tel:[phone] Office/outpat ient Visit, Est [facility], [address] [place] [address] [address], [place], [place], [address], tel:[phone] [place] [employer] Professiona l IOP Check (chief complaint) Primary open-angle glaucoma, right eye, severe stagePrimary open-angle glaucoma, left eye, mild stagePunctat e keratitis, bilateral Aug- 0 Kirk Chandler. [address], [address], [place], [place], [address], . tel:[phone] Referring Provider: Ramesh Avery, [address], [place], [address]. tel:[phone] [facility], [address] [place] [address] [address], [place], [place], [address], tel:[phone] [place] 6 month Complete (chief complaint) Primary open-angle glaucoma, right eye, severe stagePrimary open-angle glaucoma, left eye, mild stagePresenc e of intraocular lensType 2 diab with mod nonp rtnop with macular edema, r eyePunctate keratitis, bilateralOth er secondary cataract, left eyeVitreous degeneration , left eye Dec- 9 Kirk Chandler. [address], [place], [place], [address], [place]. tel:[phone] Specialist: Yanely Burkett MD, [address] [facility] [address], [place], [address]. tel:[phone] ng Provider: Ramesh Avery, [address], [place], [address]. tel:[phone] Office/outpat ient Visit, [facility], [address] [place] [address] [address], [place], [place], [address], [place] tel:[phone] [place] glaucoma, pressure check (chief complaint) Primary open-angle glaucoma, right eye, severe stagePrimary open-angle glaucoma, left eye, mild stage June- 9 Kirk Chandler. [address] [employer], [address], [place], [place], [address], [place]. tel:[phone] Referring Provider: Ramesh Avery, [address] [facility] [address] [facility] [address], [place], [address]. tel:[phone] Office/outpat ient Visit, [facility], [address] [place] [address] [address], [place], [place], [address], [place] tel:[phone] [place] 1 month IOP check w/VF (chief complaint) Primary open-angle glaucoma, right eye, severe stagePrimary open-angle glaucoma, left eye, mild stage Mar- 9 Kirk Chandler. [address], [place], [place], [address], [place]. tel:[phone] Referring Provider: Ramesh Avery [address], [place], [address]. tel:[phone] Office/outpat ient Visit, Est [facility], [address] [place] [address] [address], [place], [place], [address], [place] tel:[phone] [facility] Professiona l 1 month Glaucoma Evaluation (chief complaint) Primary open-angle glaucoma, right eye, severe stagePrimary open-angle glaucoma, left eye, mild stage Dec- 8 Kirk Chandler. [address] [employer] [address], [address], [place], [place], [address], [place]. tel:[phone] Referring Provider: Ramesh Avery, [address] [employer] [address], [place], [address]. tel:[phone] [facility], [address] [place] [address] [address], [place], [place], [address], [place] tel:[phone] [place] Profession[place] diabetic eye exam (chief complaint) Presence of intraocular lensOther secondary cataract, left eyePVD (posterior vitreous detachment), left eyeOptic cupping of right eyeLattice degeneration of both retinasEpire tinal membrane (ERM) of both eyesMeibomia n gland dysfunction (MGD) of upper and lower lids of both eyes Oct-1 8 Kirk Chandler. [address] [employer], [address], [place], [place], [address], [place]. tel:[phone] [facility], [address] [place] [address] [address], [place], [place], [address], [place] tel:[phone] SEC [facility] No Information Dec- 0 Ysabel Olvera. [address] [place], [address], [place]. tel:[phone] Referring Provider: Wade Vivas, [address] [place], [address]. tel:[phone] [facility], [address] [place] [address] [address], [place], [place], [address], [place] tel:[phone] [facility] No Information 0 Ysabel Olvera. [address], [facility], [place]. tel:[phone] Referring Provider: Wade Vivas, [address] [place], [place], [facility]. tel:[phone] [facility], [address] [place] [address] [address], [place], [place], [address], [place] tel:[phone] [facility] No Information 0 Ysabel Olvera. [address], [facility], [place]. tel:[phone] Referring Provider: Wade Vivas, [address] [place] [address], [facility]. tel:[phone] [facility], [address] [place] [address] [address], [place], [place], [address], [place] tel:[phone] [facility] No Information 3- 0 Amara Seymour [address], [place], [facility], [place]. tel:[phone] [facility], [address] [place] [address] [address], [place], [place], [address], [place] tel:[phone] [facility] No Information 4- 0 Amara Seymour [address], [place], [facility], [place]. tel:[phone] [facility], [address], [place], [place], [address], [place] tel:[phone] [facility] No Information 6- 0 Amara Seymour [address], [place], [facility], [place]. tel:[phone] [facility], [address] [place] [address] [address], [place], [place], [address], [place] tel:[phone] [facility] No Information Davonte-0 5-201 0 Maloney Louisa. [address] , [address], [place], [facility], . tel:[phone] [facility], [address] [place] [address] [address], [place], [place], [address], [place] tel:[phone] [facility] No Information Dec-0 1-200 9 Maloney Louisa. [address] , [address], [place], [facility], [place]. tel:[phone] [facility], [address] [place] [address] [address], [place], [place], [address], tel:[phone] [facility] No Information Nov-3 0-200 9 Ysabel Olvera. [address], [facility], [place]. tel:[phone] Referring Provider: Wade Vivas, [address], [facility]. tel:[phone] [facility], [address] [place] [address] [address], [place], [place], [address], [place] tel:[phone] [facility] No Information Nov-0 3-200 9 Maloney Louisa. [address] , [address], [place], [facility], [place]. tel:[phone] [facility], [address] [place] [address] [address], [place], [place], [address], [place] tel:[phone] [facility] No Information Oct-2 9-200 9 Rubin OD Javid. [address] , [address], [place], [facility], [place]. tel:[phone] [facility], [address] [place], [place] [address]cre[address], [place], [place], [address], [place] tel:[phone] [facility] No Information Oct-2 8-200 9 Amara Jasso. [address], [address], [place], [facility], [place]. tel:[phone] Office/outpat ient Visit, [facility], [address] [place] [address] [address], [place], [place], [address], [place] tel:[phone] [facility] No Information Oct-1 3-200 9 Amara Jasso. [address], [address], [place], [facility], [place]. tel:[phone] Referring Provider: Louisa Amaro, [address], [place], [facility]. tel:[phone] [facility], [address] [place] [address] [address], [place], [place], [address], [place] tel:[phone] [facility] No Information Oct-1 2-200 9 Ysabel Olvera. [address], [facility], [place]. tel:[phone] Referring Provider: Wade Vivas, [address], [facility]. tel:[phone] [facility], [address] [place] [address] [address], [place], [place], [address], [place] tel:[phone] [facility] No Information Aug-1 0-200 9 Ysabel Olvera. [address], [facility], [place]. tel:[phone] Referring Provider: Wade Vivas, [address], [facility]. tel:[phone] [facility], [address], [place], [place], [address], [place] tel:[phone] [facility] No Information Jose R-2 9-200 9 Ysabel Wade. [address] [place], [address], [place]. tel:[phone] Referring Provider: Wade Vivas, [address] [place], [address]. tel:[phone] [facility], [address], [place], [place], [address], [place] tel:[phone] [facility] No Information May-2 7-200 9 Ysabel Olvera. [address] [place], [address], [place]. tel:[phone] Referring Provider: Wade Vivas, [address] [place], [address]. tel:[phone] [facility], [address], [place], [place], [address], [place] tel:[phone] [facility] No Information May-2 0-200 9 Ysabel Olvera. [address] [place], [address], [place]. tel:[phone] Referring Provider: Wade Vivas, [address] [place], [address]. tel:[phone] [facility], [address], [place], [place], [address], [place] tel:[phone] [facility] No Information May-1 6-200 9 Ysabel Olvera. [address] [place], [address], [place]. tel:[phone] Referring Provider: Wade Vivas, [address] [place], [address]. tel:[phone] [facility], [address], [place], [place], [address], [place] tel:[phone] [facility] No Information Dec-0 1-200 8 Ysabel Olvera. [address] [place], [facility], [place]. tel:[phone] [facility], [address] [place] [address] [address], [place], [place], [address], [place] tel:[phone] [facility] No Information Sep-1 5-200 8 Ysabel Olvera. [address] [place], [facility], [place]. tel:[phone] Referring Provider: Louisa Amaro [address], [place], [facility]. tel:[phone] Office/outpat ient Visit, Est [facility], [address] [place] [address] [address], [place], [place], [address], [place] tel:[phone] [facility] No Information Jose R-1 7-200 8 Amara Seymour [address] , [address], [place], [facility], [place]. tel:[phone] Office/outpat ient Visit, Est [facility], [address] [place] [address] [address], [place], [place], [address], [place] tel:[phone] [facility] No Information Dec-0 4-200 7 Amara Seymour [address] , [address], [place], [facility], [place]. tel:[phone] Office/outpat ient Visit, Est [facility], [address] [place] [address] [address], [place], [place], [address], [place] tel:[phone] [facility] No Information Jose R-1 2-200 7 Amara Seymour [address] , [address], [place], [facility], [place]. tel:[phone] [facility], [address] [place] [address] [address], [place], [place], [address], [place] tel:[phone] [facility] No Information Apr-1 0-200 7 Amara Jasso. [address] , [address], [place], [facility], [place]. tel:[phone] [facility], [address] [place] [address] [address], [place], [place], [address], tel:[phone] [place] [address] No Information Mar-1 3-200 7 Amara Benavidezn. [address] , [address], [place], [facility], [place]. tel:[phone] [facility], [address] [place] [address] [address], [place], [place], [address], tel:[phone] [facility] No Information Mar-0 8-200 7 Amara Jasso. [address] , [address], [place], [facility], [place]. tel:[phone] [facility], [address] [place] [address] [address], [place], [place], [address], [place] tel:[phone] [facility] No Information Mar-0 7-200 7 Amara Benavidezn. [address] , [address], [place], [facility], [place]. tel:[phone] [facility], [address] [place] [address] [address], [place], [place], [address], [place] tel:[phone] [facility] No Information Mar-0 1-200 7 Amara Benavidezn. [address] , [address], [place], [facility], [place]. tel:[phone] Referring Provider: Louisa Amaro, [address], [place], [place], [facility]. tel:[phone] Family History Family Member Type Diagnosis Age At Onset No Information Payers Payer name Insurance type Covered constitution party ID Adalberto bernard(s) AARP Medicare Complete CI [id number] Social History Type Description Quantity Date Captured Comments Sex Female Smoking Status No Information Chief Complaint And Reason For Visit No Information Reason For Referral Reason For Referral No Information Plan Of Treatment Date Type Action Status Referral [place]: [place] [address] [place], [address] [phone] Ordered: Referrals: Ophthalmology. Diego Butler MD. Evaluate and treat ordered Referral Referred To: Yunier Rodrigues [address] [place], [place], [id number] [phone] Ordered: Referrals: Allopathic & Osteopathic Physicians : Ophthalmology. Yunier Rodrigues. Evaluate and treat ordered Referral Ordered: David Neal MD -Allopathic & Osteopathic Physicians : Ophthalmology (related to Type 2 diab with mod nonp rtnop with macular edema, r eye) ordered Referral Referred To: David Neal MD [address]
[place], [place], [id number] [phone] Ordered: Referrals: Allopathic & Osteopathic Physicians : Ophthalmology. David Neal MD Evaluate and treat ordered Patient Education Learning About Vitreous Detachment completed Patient Education Open-Angle Glaucoma: Ca re Instructions completed Patient Education Open-Angle Glaucoma: Ca re Instructions completed Patient Education Open-Angle Glaucoma: Ca re Instructions completed Patient Education Open-Angle Glaucoma: Ca re Instructions completed Patient Education Open-Angle Glaucoma: Ca re Instructions completed Patient Education Open-Angle Glaucoma: Ca re Instructions completed Patient Education Open-Angle Glaucoma: Ca re Instructions completed Patient Education Open-Angle Glaucoma: Ca re Instructions completed History Of Present Illness Encounter Date Complaint History Of Prese nt Illness Pain/Darkness The 81 year old patient presents for evaluation of Pain/Darkness in the left eye. Pt states Wednesday OS had a pain and lasted for a couple days. Then vision went darker pt states. Pt states vision still seems dark and looks like there a cobweb in OS. Latanoprost 1x day OU. Complete Exam The 81 year old patient presents for a complete Type II diabetic exam ou and POAG ou IOP check. Patient is using Latanoprost qhs ou. Patient is pseudo ou with yag cap OD. Patient has hx of DME OS and didn't want to see [facility]. Patient doesn't check BS but last A1C was 6.2. Patient denies any changes in vision ou. diabetic eye exam The 80 year ol d patient presents for a complete Type II diabetic exam and POAG ou IOP check. Patient is using Latanoprost qhs ou. Patient is pseudo ou with yag cap OD, ERM ou and patient sees [facility] for DME OS. Patient doesn't check BS and last A1C was 6.4 . Patient has not seen TRI and she doesn't want to. Patient states vision is stable. 6 mo IOP check The 80 year old female presents for evaluation of 6 mo IOP check with VF 24-2 and Optomap in the right eye and left eye. Hx of PCIOL OU, YAG PC OD, PCO OD, Drusen OU, POAG OU, Lattice degeneration OU, ERM OU, GISSEL OU, Pinguecula OU, PVD OD, NPDR OU w/DME OS s/p Avastin (followed by [facility]). Pt reports she is using Latanoprost QHS OU, last used at 12:30 last night, and refills sent per pt request. Blurry/dark vision The 79 year o ld female presents for evaluation of Blurry/dark vision in the right eye and left eye. Hx of PCIOL OU, YAG PC OD, PCO OS, Drusen OU, POAG OU, Lattice degeneration OU, ERM OU, GISSEL OU, Pinguecula OU, and PVD OS. Pt is NIDDM II x 30 yrs, followed by PCP, pt reports she doesn't' check BS but A1C was 7.2 about 3 mos ago. Pt reports she uses Latanoprost QHS OU and last used it about 9-10 last night. Pt reports she has blurry/dark VA, OU, since Wednesday, and she is having problems playing Solitaire with playing cards. 6 month Complete The 79 year old female presents for evaluation of 6 month Complete in the right eye and left eye. Hx of PCIOL OU, POAG OU, NPDR, Lattice degen OU, ERM OU, and GISSEL OU. Patient states distance sometimes gets fuzzy with both eyes. Patient using Denise qd OU last used @ 9pm, tech sent refills to pts pharm today. Patient is a Type 2 diab x 30 years, NOT on Insulin, doesn't check BS, a1c 7.2, and PCP treats her diab. IOP Check The 78 year old female presents for evaluation of IOP Check in the right eye and left eye. Hx PCIOL OU, PCO OS, NPDR, POAG OU, ERM OU, Lattice OU. DM2, last A1c 6.5, last tested 3 months ago, followed by Dr. Pappas. Pt reports taking Latanoprost qHS OU (10:00pm). Refills sent to pharmacy. 6 month Complete The 78 year old female presents for evaluation of 6 month Complete in the right eye and left eye. Hx of PCIOL OU, ERM OU, PVD OS, MNPDR OU, Lattice degen OU, and POAG OU. Patient denies any problems or changes with VA. Patient using Denise qd OU last used @ 10pm, [employer] sent refills to pts pharm today. Patient is a Type 2 diab x 15 years, NOT on Insulin, doesn't check BS, a1c 7.4, and PCP treats her diab. glaucoma, pressure check The 77 year old female presents for a 4 month POAG ou IOP check. Patient is using Latanoprost qhs ou. Patient is pseudo ou. Patient is a Type II diabetic and doesn't check BS. Patient denies any changes in vision ou. 1 month IOP check w/VF The 77 ye ar old female presents for evaluation of 1 month IOP check w/VF in the right eye and left eye. Hx of POAG OU, PCIOL OU, YAG PC OD, ERM OU, PVD OS, and lattice degen. Patient denies any problems or changes with eyes. Patient using Latanoprost qd OU last used @ 1230 last night. Patient don't check BS and a1c 7.4. 1 month Glaucoma Evaluation The 77 year old female presents for evaluation of 1 month Glaucoma Evaluation in the right eye and left eye. Hx of PCIOL OU, YAG PC OD, ERM OU, PVD OS, Optic Cupping OD, Lattice Degen OU, and Mod NONP RTNOP OU. Patient denies any problems or changes with eyes. Patient not on any gtts at this time. Patient is a Type 2 diab x 20 years, NOT on Insulin, doesn't check BS, a1c 8.4, and pcp monitors pt diab. diabetic eye exam The 77 year ol d female presents for a complete Type II diabetic eye exam ou. Patient doesn't check BS often but states it runs about 130. Patient is pseudo ou and states she had diabetic retinopathy and is unsure if it was one eye or both. Patient wears OTC reading glasses. Patient states distance vision is good. Functional Status Date Functional Assessmen t No Information Instructions Date Instruction Additional Infor flavio Impression/Plan Impression/Plan RTC in 6 months for an IOP Check with HVF and optomap Related to Other secondary cataract, left eye Impression/Plan Related to Other secondary cataract, left eye Impression/Plan Impression/Plan Related to Other secondary cataract, left eye Impression/Plan Impression/Plan Impression/Plan Impression/Plan Impression/Plan Impression/Plan Impression/Plan Assessments Type Assessment Date No Information Patient Care Teams Name Effective Dates (start - stop) Status Members No Information
--- OUTSIDE RECORDS SUMMARY | 2024-10-08 15:35 | XMS_ITS | Clinical Summary ---
Author Organization [facility] Address [facility] [place] [address] Care Team Providers Care Tire Fixer Name Role Phone Carlton Clark MD Unavailable [phone] Nate Clinton MD Primary Care Provider [phone] Allergies No known active allergies Medications latanoprost (XALATAN) 0.005 % ophthalmic solution Administer 1 drop into both eyes nightly Active glipiZIDE (GLUCOTROL) 10 mg tabletIndicatio ns:type 2 diabetes mellitus Take 1 tablet (10 mg total) by mouth 2 (two) times a day before breakfast and lunch Active metFORMIN (GLUCOPHAGE) 1,000 mg tablet Take 1 tablet (1,000 mg total) by mouth 2 (two) times a day with meals Active magnesium gluconate 200 mg tabletIndicatio ns:hypomagnesem ia Take 1 tablet (200 mg total) by mouth daily Active cholecalciferol (VITAMIN D-3) 5,000 unit tablet daily Active aspirin 81 mg chewable tabletIndicatio ns:coronary artery disease Take 1 tablet (81 mg total) by mouth daily 90 tablet 3 4 Active clopidogreL (PLAVIX) 75 mg tabletIndicatio ns:coronary artery disease Take 1 tablet (75 mg total) by mouth daily 90 tablet 3 4 Active metoprolol XL (TOPROL-XL) 25 mg extended release tablet Take 1 tablet (25 mg total) by mouth 2 (two) times a day 60 tablet 11 4 11/22/19 25 Active losartan (COZAAR) 25 mg tablet Take 1 tablet (25 mg total) by mouth daily 30 tablet 11 4 12/07/19 25 Active Active Problems Problem Noted Date Diagnosed Date S/P TAVR (transcatheter aortic valve replacement ) 09/29/2023 Exudative age-related macular degeneration 09/22 Severe aortic stenosis 08/30/2023 ALINA (acute kidney injury) 08/23/2023 Chronic kidney disease, stage III (moderate) Essential hypertension 08/23/2023 Glaucoma of right eye 08/23/2023 Murmur, heart 08/23/2023 Small bowel obstruction 08/23/2023 Type 2 diabetes mellitus wit h diabetic retinopathy and macular edema 08/23/2023 Meibomian gland dysfunction 12/13/2017 Optic cupping 12/13/2017 Posterior vitreous detachment 12/13/2017 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 Resolved Problems Problem Noted Date Diagnosed Date Resolved Date Benign hypertensive heart an d kidney disease with heart failure and chronic kidney disease stage V or end stage renal disease(404.13) 08/23/2023 08/23/2023 Surgical History Surgery Date Site/Laterality Comments CATARACT EXTRACTION, BILATERAL BREAST BIOPSY in her 20's FACIAL COSMETIC SURGERY years ago BUNIONECTOMY Bilateral TUBAL LIGATION in her 30's Medical History Medical History Date Comments PONV (postoperative nausea and vomiting) Motion sickness Aortic stenosis, severe Syncope during due to low BP Diverticulitis of colon Type 2 diabetes mellitus Arthritis right knee Cataract Glaucoma right eye Family History Relation Name Status Comments Father Mother Social History Tobacco Use Types Packs/Day Years Used Date Smoking Tobacco: Never Passive Smoke Exposure: Past Smokeless Tobacco: Never Tobacco Cessation:Counseling Given: Not Answered AUDIT-C Answer Date Recorded Q1: How often do you have a drink containing alcohol? Never 09/27/2023 Q2: How many drinks containi ng alcohol do you have on a typical day when you are drinking? Patient does not drink Q3: How often do you have si x or more drinks on one occasion? Never 09/27/2023 Personal Safety Answer Date Recorded Have you ever been in or are you currently in a harmful physical or emotional relationship or is someone making you feel afraid or unsafe? 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 Gender Identity Not on file Sexual Orientation Not on file Obstetrics History Last Filed Vital Signs Vital Sign Reading Time Taken Comments Blood Pressure 101/60 05/15/2024 11:02 AM CDT Pulse 67 05/15/2024 11:02 AM CDT Temperature 37 C (98.6 F) 09/30/2023 8:04 AM CDT Respiratory Rate 18 05/15/2024 11:02 AM CDT Oxygen Saturation 94% 09/30/2023 8:04 AM CDT Inhaled Oxygen Concentration - - Weight 70.8 kg (156 lb) 05/15/2024 11:02 AM CDT Height 157.5 cm (5' 2) 05/15/2024 11:02 AM CDT Body Mass Index 28.53 05/15/2024 11:02 AM CDT Plan of Treatment Health Maintenance Due Date Last Done Comments Albumin Creatinine Ratio, Urine 1940 Depression Screening 1939 Osteoporosis Screening-Bone Density Scan 1940 Dilated Eye Exam 1939 Foot Exam 1939 Lipid Panel 1939 DTaP/Tdap/Td Vaccine (1 - Tdap) 11/25/1950 Hepatitis B Screening 11/25/1957 Pneumococcal vaccine 65+ (1 of 2 - PCV) 11/25/1958 Zoster Vaccine (1 of 2) 11/25/1989 Well Visit 65+ 11/25/2004 Hemoglobin A1C 03/29/2024 09/27/2023 Fall Risk Assessment 09/29/2024 09/30/2023 eGFR 09/29/2024 09/30/2023, 09/27/2023 Influenza Vaccine (#1) 2024 Medical Devices Implanted Type Area Health Policy Manager Device Identifier Shelf Expiration Date Model / Serial / Lot [employer] System Closure Repair Femoral Artery Suture Mediated Perclose Prostyle 60780-16 - [id number] Implanted:Qty: 1 on 09/29/2023 by Carlton Clark MD at [facility] [employer] 06/28/2025 [id number] / / [id number] [employer] System Closure Repair Femoral Artery Suture Mediated Perclose Prostyle 56883-23 - [id number] Implanted:Qty: 1 on 09/29/2023 by Carlton Clark MD at [facility] [employer] 06/28/2025 [id number] / / [id number] [employer] Valve Heart 23mm Keenan 3 Transcatheter [id number] - [id number] Implanted:Qty: 1 on 09/29/2023 by Carlton Clark MD at [facility] [employer] [id number] / / [employer] System Closure Repair Femoral Artery Suture Mediated Perclose Prostyle 86935-34 - [id number] Implanted:Qty: 1 on 09/29/2023 by Carlton Clark MD at [facility] [employer] 06/28/2025 [id number] / / [id number] Procedures Procedure Name Priority Date/Time Associated Diagnosis Comments EGFR Routine 09/30/2023 5:42 AM CDT HEMOGLOBIN A1C Routine 09/27/2023 12:37 PM CDT Encounter for preadmission testing Other specified diabetes mellitus with other specified complication, without long-term current use of insulin (HCC) from Last 3 Months or Most Recently Relevant to Health Maintenance Results * (ABNORMAL) eGFR (09/30/2023 5:42 AM CDT) eGFR 49(L) >=60 mL/min/1. 73 m2 Comment: Interpretive Data Reference Interval Normal >/= 90 mL/min/1.73m2 Mildly decreased* 60 - 89 mL/min/1.73m2 Mildly to moderately decreased 45 - 59 mL/min/1.73m2 Moderately to severely decreased 30 - 44 mL/min/1.73m2 Severely decreased 15 - 29 mL/min/1.73m2 Kidney Failure < 15 mL/min/1.73m2 *Relative to young adult level Estimated glomerular filtration rate is determined by the 2020 CKD-EPI equation recommended by the National Kidney Foundation (A Unifying Approach to GFR Estimation: Recommendations of the NKF-ASK Task Force on Reassessing the Inclusion of Race in Diagnosing Kidney Disease, JASN 2020). The CKD-EPI equation should not be used for patients with unstable renal function and has not been validated in children and those over 70. Current interpretive data was last reviewed 2020. Blood 09/30/2023 5:42 AM CDT 09/30/2023 6:03 AM CDT Carlton Clark MD LAB BLOOD ORDERABLES Final Resu lt Performing Organization Address [facility] de Phone Number CELENA KLINE [address] [address] [place] [address] * (ABNORMAL) Hemoglobin A1c (09/27/2023 12:37 PM CDT) Hgb A1C 7.2(H) 4.0 - 5.6 % Estimated Average Glucose 160 mg/dL CELENA KLINE Comment: The ADA recommends reporting an estimated Average Glucose (eAG) with all Hemoglobin A1c results using the equation derived from a study of 507 normal and diabetic adults. Minority populations were underrepresented and children were not included. (Diabetes Care 31:4719-0967, 2008). The eAG is not equivalent to a fasting glucose. Blood 09/27/2023 12:3 7 PM CDT 09/27/2023 1:45 PM CDT Joyce Marie NP LAB BLOOD ORDERABLES Final Res ult Performing Organization Address [facility] de Phone Number CELENA KLINE [address] [place] [place] [address] from Last 3 Months or Most Recently Relevant to Health Maintenance Insurance [facility] MEDICARE ADVANTAGE Member Subscriber Plan / Payer (Ef fective 2023-Present) Name:Cherie Packer Relation to Subscriber:Self Name:OchoaCherie britt Payer ID:[id number] (NAIC) Type:[facility] MEDICARE Address: [place] [phone] Care Teams Tire Fixer Relationship Specialty Start Date End Date Nate Clinton MD PCP - General Family Practice 10/05/23 aCrlton Clark MD Forming And Assembling Supervisor Cardiology 10/01/23
[2024-10-08 16:01] LABS: Hematocrit 36.4 % (37.0-47.0); Hemoglobin 12.2 g/dL (12.0-15.0); Immature Granulocyte Percent A 0.3 % (0-0.5); Lymphocytes Absolute Auto 0.66 K/mm3 (0.9-3.2); Mean Corpuscular HGB Conc 33.5 g/dl (32-36); Mean Corpuscular Hemoglobin 29.3 pg (26-34); Mean Corpuscular Volume 87.5 fl (80-100); Nucleated Red Blood Cells Absolute Auto 0.000 K/mm3 (0.0-0.012); Nucleated Red Blood Cells Perc 0.0 % (0.0-0.2); Platelet Count Result 242 k/mm3 (150-375); Red Blood Count 4.16 M/mm3 (4.2-5.4); White Blood Count 7.2 K/mm3 (4.5-10.0)
[2024-10-08 16:10] LABS: Anion Gap 10 mmol/L (4-12); Blood Urea Nitrogen 15 mg/dL (7-17); Calcium 9.8 mg/dL (8.4-10.2); Carbon Dioxide 23 mmol/L (22-30); Chloride 103 mmol/L (98-107); Estimated CRCL calculation 38 ml/min; Estimated Glomerular Filt Rate > 60; Glucose 179 mg/dL (65-110); Potassium 4.1 mmol/L (3.4-5.0); Sodium 136 mmol/L (137-145)
--- NOTE | 2024-10-08 17:10 | ED_ITS ---
HPI - General Adult General Chief complaint: Recheck/Abnormal Lab/Rx Stated complaint: low BG Time Seen by Provider: 10/08/24 15:18 History of Present Illness HPI narrative: Patient is an 83-year-old female who presents ER after being found having low blood sugar. Patient took I jar a today but has not eaten. She is now awake alert after receiving dextrose supplementation by EMS. . Denies fevers or chills or sweats. No productive cough. No urinary symptoms. She is hungry at this time like T. No complaints. Related Data Home Medications ?Medication ?Instructions ?Recorded ?Confirmed ?Last Taken ?Type latanoprost 0.005 % eye drops 1 drop ophthalmic (eye) QPM 11/15/19 09/06/24 08/12/23 07:00 History clopidogrel 75 mg tablet 75 mg PO 12/06/23 09/06/24 Unknown History metoprolol succinate 25 mg mg PO 12/06/23 09/06/24 Unknown History tablet,extended release 24 hr Allergies Allergy/AdvReac Type Severity Reaction Status Date / Time No Known Allergies Allergy Verified 10/08/24 15:26 Review of Systems 2 Review of Systems: All systems reviewed & are unremarkable except as noted in HPI and below Constitutional: Constitutional: Reports no additional constitutional complaints Cardiovascular: Cardiovascular: Reports no additional cardiovascular complaints Respiratory: Respiratory: Reports no additional respiratory complaints Gastrointestinal: Gastrointestinal: Reports no additional gastrointestinal complaints Musculoskeletal: Musculoskeletal: Reports no additional musculoskeletal complaints [facility] Past Medical History Medical History ALINA (acute kidney injury) Small bowel obstruction Chronic kidney disease, stage III (moderate) Essential hypertension Glaucoma of right eye Heart murmur 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 She has 2 children. 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 She is . She is a lifelong nonsmoker. She does not use any alcohol marijuana illicit drugs. Her children are the durable power mergers and acquisitions attorney for healthcare. Code status full code Smoking status: Never smoker Second hand tobacco smoke exposure: Yes Alcohol intake: unknown Substance use: unknown Substance use type: does not use Lack of Transportation: No Lack of Food: Never True Current Housing: I Have Housing Concerned About Future Housing: No Difficulty Paying Gas/Electric Bills: No Difficulty Paying for Meds: No Currently Unemployed: No Education: Decline to Answer Difficulty w/ Childcare or Family Care: No Living arrangements: with family Spiritual care concerns: No Exam 2 Narrative: GENERAL: Well-appearing, well-nourished, and in no acute distress. HEAD: Normocephalic, atraumatic. EYES: PERRL and EOMI. ENT: Mucous membranes moist. CHEST: Clear to auscultation. No respiratory distress. HEART: Regular rate and rhythm. Normal peripheral pulses. ABDOMEN: Soft, nontender, nondistended. EXTREMITIES: Normal range of motion. No edema. SKIN: Warm, dry, no rash. NEURO: Alert and oriented x3. PSYCH: Normal mood and affect. Course Course Emergency Course: Patient resting comfortably. Eating and drinking. Blood glucose normal. Discharge. Vital Signs Vital signs: Vital Signs Temperature 97.9 F 10/08/24 15:21 Pulse Rate 57 L 10/08/24 15:21 Respiratory Rate 16 10/08/24 15:21 Blood Pressure 146/53 H 10/08/24 15:21 Pulse Oximetry 100 10/08/24 15:21 Oxygen Delivery Room Air 10/08/24 15:21 Temperature 97.9 F 10/08/24 15:21 Pulse Rate 64 10/08/24 17:51 Respiratory Rate 17 10/08/24 17:51 Blood Pressure 156/70 H 10/08/24 17:51 Pulse Oximetry 100 10/08/24 17:51 Oxygen Delivery Room Air 10/08/24 15:21 Medical Decision Making Vital Signs Vital Signs: Vital Signs Temperature 97.9 F 10/08/24 15:21 Pulse Rate 57 L 10/08/24 15:21 Respiratory Rate 16 10/08/24 15:21 Blood Pressure 146/53 H 10/08/24 15:21 Pulse Oximetry 100 10/08/24 15:21 Oxygen Delivery Room Air 10/08/24 15:21 Temperature 97.9 F 10/08/24 15:21 Pulse Rate 64 10/08/24 17:51 Respiratory Rate 17 10/08/24 17:51 Blood Pressure 156/70 H 10/08/24 17:51 Pulse Oximetry 100 10/08/24 17:51 Oxygen Delivery Room Air 10/08/24 15:21 Lab Data 10/08/24 15:55 10/08/24 15:55 Labs: Lab Results 10/08/24 10/08/24 10/08/24 Range/Units 15:27 15:55 16:20 WBC 7.2 (4.5-10.0) K/mm3 RBC 4.16 L (4.2-5.4) M/mm3 Hgb 12.2 (12.0-15.0) g/dL Hct 36.4 L (37.0-47.0) % MCV 87.5 (80-100) fl MCH 29.3 (26-34) pg MCHC 33.5 (32-36) g/dl RDW 13.3 (11.5-14.5) % Plt Count 242 (150-375) k/mm3 MPV 10.5 H (7.4-10.4) fl Immature Gran % (Auto) 0.3 (0-0.5) % Neut % (Auto) 85.0 H (45.5-73.1) % Lymph % (Auto) 9.2 L (18.3-44.2) % [place] % (Auto) 4.8 (2.6-8.5) % Eos % (Auto) 0.4 (0-4.4) % Baso % (Auto) 0.3 (0.2-1.2) % Lymph # (Auto) 0.66 L (0.9-3.2) K/mm3 [place] # (Auto) 0.3 (0.1-0.6) K/mm3 Eos # (Auto) 0.0 (0-0.3) K/mm3 Baso # (Auto) 0.0 (0.0-0.1) K/mm3 Abs Immat Gran (auto) 0.02 (0.00-0.031) K/mm3 Absolute Neuts (auto) 6.1 (1.3-6.7) K/mm3 Absolute Nucleated RBC 0.000 (0.0-0.012) K/mm3 Nucleated RBC % 0.0 (0.0-0.2) % Sodium 136 L (137-145) mmol/L Potassium 4.1 (3.4-5.0) mmol/L Chloride 103 (98-107) mmol/L Carbon Dioxide 23 (22-30) mmol/L Anion Gap 10 (4-12) mmol/L BUN 15 D (7-17) mg/dL Creatinine 0.86 (0.7-1.0) mg/dL Estim Creat Clear Calc 38 ml/min Estimated GFR > 60 (59 - ) Glucose 179 H (65-110) mg/dL POC Capillary Glucose 148 H 151 H (65-105) mg/dl Calcium 9.8 (8.4-10.2) mg/dL Urine Color (Yellow) Urine Appearance (Clear) Urine pH (5.0-9.0) Ur Specific [place] (1.001-1.035) Urine Protein (Negative) mg/dL Urine Glucose (UA) (Negative) mg/dL Urine Ketones (Negative) mg/dL Ur Blood (Man) (Negative) Urine Nitrate (Negative) Urine Bilirubin (Negative) Urine Urobilinogen (<2.0) mg/dL Leukocyte Esterase Rfl (Negative) RISHI/UL 10/08/24 10/08/24 Range/Units 17:26 17:48 WBC (4.5-10.0) K/mm3 RBC (4.2-5.4) M/mm3 Hgb (12.0-15.0) g/dL Hct (37.0-47.0) % MCV (80-100) fl MCH (26-34) pg MCHC (32-36) g/dl RDW (11.5-14.5) % Plt Count (150-375) k/mm3 MPV (7.4-10.4) fl Immature Gran % (Auto) (0-0.5) % Neut % (Auto) (45.5-73.1) % Lymph % (Auto) (18.3-44.2) % [place] % (Auto) (2.6-8.5) % Eos % (Auto) (0-4.4) % Baso % (Auto) (0.2-1.2) % Lymph # (Auto) (0.9-3.2) K/mm3 [place] # (Auto) (0.1-0.6) K/mm3 Eos # (Auto) (0-0.3) K/mm3 Baso # (Auto) (0.0-0.1) K/mm3 Abs Immat Gran (auto) (0.00-0.031) K/mm3 Absolute Neuts (auto) (1.3-6.7) K/mm3 Absolute Nucleated RBC (0.0-0.012) K/mm3 Nucleated RBC % (0.0-0.2) % Sodium (137-145) mmol/L Potassium (3.4-5.0) mmol/L Chloride (98-107) mmol/L Carbon Dioxide (22-30) mmol/L Anion Gap (4-12) mmol/L BUN (7-17) mg/dL Creatinine (0.7-1.0) mg/dL Estim Creat Clear Calc ml/min Estimated GFR (59 - ) Glucose (65-110) mg/dL POC Capillary Glucose 171 H (65-105) mg/dl Calcium (8.4-10.2) mg/dL Urine Color Yellow (Yellow) Urine Appearance Clear (Clear) Urine pH 6.0 (5.0-9.0) Ur Specific [place] 1.007 (1.001-1.035) Urine Protein Negative (Negative) mg/dL Urine Glucose (UA) 1+ H (Negative) mg/dL Urine Ketones 1+ H (Negative) mg/dL Ur Blood (Man) Negative (Negative) Urine Nitrate Negative (Negative) Urine Bilirubin Negative (Negative) Urine Urobilinogen 0.2 (<2.0) mg/dL Leukocyte Esterase Rfl Negative (Negative) RISHI/UL ECG Data EKG #1: ECG completion date: 10/08/24 ECG completion time: 16:02 EKG Interpretation: bradycardia (57), sinus rhythm, non-specific ST changes, normal QRS and normal QT Discharge Plan Discharge Clinical Impression: Hypoglycemia Patient Disposition: Home Condition: Stable Instructions: Hypoglycemia in a Person with Diabetes (ED) Additional Instructions: Return the ER if you cannot keep down food water, you have fever over 100.4? F, you have chest pain, or you have additional concerns. Patient Language: Kyrgyz Prescriptions: No Action Mounjaro 2.5 mg/0.5 mL pen injector 2.5 mg subcut WEEKLY Qty: 2 0RF Rx Instructions: for 4 weeks fluticasone propion-salmeterol [Advair HFA] 115-21 mcg/actuation HFA aerosol inhaler 2 puff inhalation BID Qty: 12 1RF latanoprost 0.005 % drops 1 drop EACH EYE QPM metoprolol succinate 25 mg tablet extended release 24 hr PO clopidogrel 75 mg tablet 75 mg PO glipizide 10 mg tablet 10 mg PO BID Qty: 180 1RF lisinopril 10 mg tablet 10 mg PO DAILY Qty: 90 1RF Follow-up/Referrals: Nate Clinton MD [Primary Care Provider] - 1 Week
[2024-10-08 17:51] VITALS: BP 156/70; PULSE 64; RESP 17; O2SAT 100
[2024-10-08 17:55] LABS: Add Urine Microscopic? NO; Appearance Urine Clear (Clear); Glucose Urine UA 1+ mg/dL (Negative); Leukocyte Esterase Ur Negative LEU/UL (Negative); Nitrate Urine Negative (Negative); Specific Grav Ur 1.007 (1.001-1.035)
[2024-10-08 18:16] VITALS: BP 160/73; PULSE 75; RESP 16; O2SAT 100
== END 2024-10-08 18:17 | disposition home or self-care (01) ==
PROVIDERS: Emergency Provider Emergency Medicine; PCP Family Medicine
DX: E11.649 Type 2 diabetes mellitus with hypoglycemia without coma (principal); E11.22 Type 2 diabetes mellitus with diabetic chronic kidney disease; I12.9 Hypertensive chronic kidney disease with stage 1 through stage 4 chronic kidney disease, or unspecified chronic kidney disease; N18.30 Chronic kidney disease, stage 3 unspecified; Z98.49 Cataract extraction status, unspecified eye; Z77.22 Contact with and (suspected) exposure to environmental tobacco smoke (acute) (chronic); Z79.85 Long-term (current) use of injectable non-insulin antidiabetic drugs; Z79.02 Long term (current) use of antithrombotics/antiplatelets; Z79.84 Long term (current) use of oral hypoglycemic drugs; Z79.899 Other long term (current) drug therapy; R00.1 Bradycardia, unspecified; R94.31 Abnormal electrocardiogram [ECG] [EKG]; I51.7 Cardiomegaly
CPT/HCPCS: 36415; 71046; 80048; 81003; 82948; 85025; 93005; 99283

== ENCOUNTER 2024-11-27 07:40 | Outpatient (CLI) | payer MEDICARE, SELFPAY ==
--- OUTSIDE RECORDS SUMMARY | 2024-10-12 08:25 | XMS_ITS | Continuity of Care Document ---
Author Organization [facility] Address [address] [place] [id number] Phone Care Team Providers Care Logistics Supply Officer Name Role Phone Maggie Doshi OD Unavailable [...] Diagnoses Date Provider Providers Copied on Encounter [facility], [address], [place], [place], [address], tel:[phone] [place] Professiona [place] No Information 5 Glenda OD Maggie. [facility] [employer], [address], [place], [place], [address], . tel:[phone] [facility] CenterFl[facility] CenterR[facility], [address], [place], [place], [address], tel:[phone] [place] No Information 5 Glenda OD Maggie. [facility] [employer], [address], [place], [place], [address], [place]. tel:[phone] Office/outpat ient Visit, Est [facility], [address], [place], [place], [address], tel:[phone] [place] Profession[place] Pain/Darkne ss (chief complaint) Left eye painVitreous degeneration , bilateralTyp e 2 diab with mild nonp rtnop with macular edema, l eyeType 2 diab with mild nonp rtnop without mclr edema, r eye Sep-2 0 3 Glenda OD Maggie. [facility] [employer], [address], [place], [place], [address], . tel:[phone] Wade Koroma MD.Referring Provider: Maggie Doshi OD L, [address], [place], [address]. tel:[phone] Office/outpat ient Visit, Est [facility], [address], [place], [place], [address], [place] tel:[phone] [place] Profession[place] Complete Exam (chief complaint) Exudative age-related macular degeneration of right eye with inactive choroidal neovasculari zationPrimar y open-angle glaucoma, right eye, severe stageType 2 diab with mod nonp rtnop without macular edema, bi 3 Maki OD Alma Rosa. [address] [place] [address] [address], [address], [place], [place], [address], [place]. tel:[phone] Wade Koroma MD.Referring Provider: Alma Rosa Gambino OD K, [address] [place] [address] [address], [place], [address]. tel:[phone] [facility], [address], [place], [place], [address], [place] tel:[phone] [place] Profession[place] diabetic eye exam (chief complaint) Presence of intraocular lensPrimary open-angle glaucoma, right eye, severe stagePrimary open-angle glaucoma, left eye, mild stageCystoid macular edema of left eyeType 2 diabetes mellitus without complication sOther secondary cataract, left eye 2 Kirk Chandler. [address] [facility], [address], [place], [place], [address], [place]. tel:[phone] Wade Koroma MD.Referring Provider: Ramesh Avery, [address] [facility] [address], [place], [address]. tel:[phone] [facility], [address], [place], [place], [address], [place] tel:[phone] [place] Profession[place] No Information 2 Kirk Chandler. [address] [facility], [address], [place], [place], [address], [place]. tel:[phone] Referring Provider: Ramesh Avery, [address] [facility] [address], [place], [address]. tel:[phone] Office/outpat ient Visit, [facility], [address] [place] [address] [address], [place], [place], [address], [place] tel:[phone] [place] Profession[place] 6 mo IOP check (chief complaint) Primary open-angle glaucoma, right eye, severe stagePrimary open-angle glaucoma, left eye, mild stageBilater al nuclear sclerosis cataract 1 Kirk Chandler. [address] [facility], [facility] [place], [address], [place]. tel:[phone] Specialist: Wade Koroma MD, [address] [place] [address], [address]. tel:[phone] ng Provider: Ramesh Avery, [address] [facility] [address], [place], [address]. tel:[phone] Office/outpat ient Visit, [facility], [address] [place] [address] [address], [place], [place], [address], [place] tel:[phone] SEC [place] Professiona l Blurry/dark vision (chief complaint) Primary open-angle glaucoma, right eye, severe stagePrimary open-angle glaucoma, left eye, mild stageOther secondary cataract, left eyeCystoid macular edema of left eye 1 Kirk Chandler. [address] [facility], [address], [place], [place], [address], [place]. tel:[phone] [place]: [place], [address] [place], [address]. tel:[phone] ng Provider: Ramesh Avery, [address], [place], [address]. tel:[phone] [facility], [address] [place] [address] [address], [place], [place], [address], tel:[phone] [place] Profession[place] 6 month Complete (chief complaint) Primary open-angle glaucoma, right eye, severe stagePrimary open-angle glaucoma, left eye, mild stagePresenc e of intraocular lensOther secondary cataract, left eyeType 2 diabetes mellitus without complication sDrusen (degenerativ e) of macula, bilateralVit reous degeneration , left eye Apr-0 1 Kirk Chandler. [address], [address], [place], [place], [address], . tel:[phone] Referring Provider: Ramesh Avery, [address] [facility] A, [place], [address]. tel:[phone] Office/outpat ient Visit, Est [facility], [address] [place] [address] [address], [place], [place], [address], tel:[phone] [place] [employer] Professiona l IOP Check (chief complaint) Primary open-angle glaucoma, right eye, severe stagePrimary open-angle glaucoma, left eye, mild stagePunctat e keratitis, bilateral Aug- 0 Kirk Chandler. [address], [address], [place], [place], [address], . tel:[phone] Referring Provider: Ramesh Avery, [address], [place], [address]. tel:[phone] [facility], [address] [place] [address] [address], [place], [place], [address], tel:[phone] [place] Profession[place] 6 month Complete (chief complaint) Primary open-angle glaucoma, right eye, severe stagePrimary open-angle glaucoma, left eye, mild stagePresenc e of intraocular lensType 2 diab with mod nonp rtnop with macular edema, r eyePunctate keratitis, bilateralOth er secondary cataract, left eyeVitreous degeneration , left eye Dec- 9 Kirk Chandler. [address], [place], [place], [address], [place]. tel:[phone] Specialist: Yanely Burkett MD, [address] [facility] [address], [place], [address]. tel:[phone] ng Provider: Ramesh Avrey, [address], [place], [address]. tel:[phone] Office/outpat ient Visit, [facility], [address] [place] [address] [address], [place], [place], [address], [place] tel:[phone] [place] Profession[place] glaucoma, pressure check (chief complaint) Primary open-angle glaucoma, right eye, severe stagePrimary open-angle glaucoma, left eye, mild stage June- 9 Kirk Chandler. [address], [address], [place], [place], [address], [place]. tel:[phone] Referring Provider: Ramseh Avery, [address] [facility] [address], [place], [address]. tel:[phone] Office/outpat ient Visit, [facility], [address] [place] [address] [address], [place], [place], [address], [place] tel:[phone] [place] Profession[place] 1 month IOP check w/VF (chief complaint) Primary open-angle glaucoma, right eye, severe stagePrimary open-angle glaucoma, left eye, mild stage Mar- 9 Kirk Chandler. [address], [place], [place], [address], [place]. tel:[phone] Referring Provider: Ramesh Avery [address], [place], [address]. tel:[phone] Office/outpat ient Visit, Est [facility], [address] [place] [address] [address], [place], [place], [address], [place] tel:[phone] SEC [facility] Professiona l 1 month Glaucoma Evaluation (chief complaint) Primary open-angle glaucoma, right eye, severe stagePrimary open-angle glaucoma, left eye, mild stage Dec- 8 Kirk Chandler. [address] [employer], [address], [place], [place], [address], [place]. tel:[phone] Referring Provider: Ramesh Avery, [address] [address], [place], [address]. tel:[phone] [facility], [address] [place] [address] [address], [place], [place], [address], [place] tel:[phone] [place] Professiona l diabetic eye exam (chief complaint) Presence of intraocular lensOther secondary cataract, left eyePVD (posterior vitreous detachment), left eyeOptic cupping of right eyeLattice degeneration of both retinasEpire tinal membrane (ERM) of both eyesMeibomia n gland dysfunction (MGD) of upper and lower lids of both eyes Oct-1 8 Kirk Chandler. [address], [address], [place], [place], [address], [place]. tel:[phone] [facility], [address] [place] [address] [address], [place], [place], [address], [place] tel:[phone] SEC [facility] No Information Dec- 0 Ysabel Olvera. [address] [place], [address], [place]. tel:[phone] Referring Provider: Wade Vivas, [address] [place], [address]. tel:[phone] [facility], [address] [place] [address] [address], [place], [place], [address], [place] tel:[phone] [facility] No Information 0 Ysabel Olvera. [address] [place], [place], [facility], [place]. tel:[phone] Referring Provider: Wade Vivas, [address] [place], [place], [facility]. tel:[phone] [facility], [address] [place] [address] [address], [place], [place], [address], [place] tel:[phone] [facility] No Information 0 Ysabel Olvera. [address] [place], [place], [facility], [place]. tel:[phone] Referring Provider: Wade Vivas, [address] [place] [address], [facility]. tel:[phone] [facility], [address] [place] [address] [address], [place], [place], [address], [place] tel:[phone] [facility] No Information 3- 0 Amara Seymour [address], [place], [facility], [place]. tel:[phone] [facility], [address] [place] [address] [address], [place], [place], [address], [place] tel:[phone] [facility] No Information 4- 0 Amara Seymour [address] , [address], [place], [facility], [place]. tel:[phone] [facility], [address], [place], [place], [address], [place] tel:[phone] [facility] No Information 6- 0 Amara Seymour [address] , [address], [place], [facility], [place]. tel:[phone] [facility], [address] [place] [address] [address], [place], [place], [address], [place] tel:[phone] [facility] No Information Davonte-0 5-201 0 Maloney Louisa. [address] , [address], [place], [facility], . tel:[phone] [facility], [address] [place] [address] [address], [place], [place], [address], [place] tel:[phone] [facility] No Information Dec-0 1-200 9 Maloney Louisa. [address] , [address], [place], [facility], [place]. tel:[phone] [facility], [address] [place] [address] [address], [place], [place], [address], tel:[phone] [facility] No Information Nov-3 0-200 9 Ysabel Olvera. [address] [place], [facility], [place]. tel:[phone] Referring Provider: Wade Vivas, [address] [place], [facility]. tel:[phone] [facility], [address] [place] [address] [address], [place], [place], [address], [place] tel:[phone] [facility] No Information Nov-0 3-200 9 Maloney Louisa. [address] , [address], [place], [facility], [place]. tel:[phone] [facility], [address] [place] [address] [address], [place], [place], [address], [place] tel:[phone] [facility] No Information Oct-2 9-200 9 Rubin OD Javid. [address] , [address], [place], [facility], [place]. tel:[phone] [facility], [address] [place], [place] [address]crest [address], [place], [place], [address], [place] tel:[phone] [facility] No Information Oct-2 8-200 9 Amara Jasso. [address], [address], [place], [facility], [place]. tel:[phone] Office/outpat ient Visit, [facility], [address] [place] [address] [address], [place], [place], [address], [place] tel:[phone] [facility] No Information Oct-1 3-200 9 Amara Jasso. [address], [address], [place], [facility], [place]. tel:[phone] Referring Provider: Louisa Amaro, [address], [place], [facility]. tel:[phone] [facility], [address] [place] [address] [address], [place], [place], [address], [place] tel:[phone] [facility] No Information Oct-1 2-200 9 Ysabel Olvera. [address] [place], [facility], [place]. tel:[phone] Referring Provider: Wade Vivas, [address] [place], [facility]. tel:[phone] [facility], [address] [place] [address] [address], [place], [place], [address], [place] tel:[phone] [facility] No Information Aug-1 0-200 9 Ysabel Olvera. [address] [place], [facility], [place]. tel:[phone] Referring Provider: Wade Vivas, [address] [place], [facility]. tel:[phone] [facility], [address], [place], [place], [address], [place] tel:[phone] [facility] No Information Jose R-2 9-200 9 Ysabel Wade. [address] [place], [address], [place]. tel:[phone] Referring Provider: Wade Vivas, [address] [place], [address]. tel:[phone] [facility], [address], [place], [place], [address], [place] tel:[phone] [facility] No Information May-2 7-200 9 Ysabel Olvera. [address] [place], [address], [place]. tel:[phone] Referring Provider: Wade Vivas, [address] [place], [address]. tel:[phone] [facility], [address], [place], [place], [address], [place] tel:[phone] [facility] No Information May-2 0-200 9 Ysabel Olvera. [address] [place], [address], [place]. tel:[phone] Referring Provider: Wade Vivas, [address] [place], [address]. tel:[phone] [facility], [address], [place], [place], [address], [place] tel:[phone] [facility] No Information May-1 6-200 9 Ysabel Olvera. [address] [place], [address], [place]. tel:[phone] Referring Provider: Wade Vivas, [address] [place], [address]. tel:[phone] [facility], [address], [place], [place], [address], [place] tel:[phone] [facility] No Information Dec-0 1-200 8 Ysabel Olvera. [address] [place], [facility], [place]. tel:[phone] [facility], [address] [place] [address] [address], [place], [place], [address], [place] tel:[phone] [facility] No Information Sep-1 5-200 8 Ysabel Olvera. [address] [place], [facility], [place]. tel:[phone] Referring Provider: Louisa Amaro [address], [place], [facility]. tel:[phone] Office/outpat ient Visit, Est [employer] [facility], [address] [place] [address] [address], [place], [place], [address], [place] tel:[phone] [facility] No Information Jose R-1 7-200 8 Amara Seymour [address] , [address], [place], [facility], [place]. tel:[phone] Office/outpat ient Visit, Est [facility], [address] [place] [address] [address], [place], [place], [address], [place] tel:[phone] [facility] No Information Dec-0 4-200 7 Amara Seymour [address] , [address], [place], [facility], [place]. tel:[phone] Office/outpat ient Visit, Est [facility], [address] [place] [address] [address], [place], [place], [address], [place] tel:[phone] [facility] No Information Jose R-1 2-200 7 Amara Seymour [address] , [address], [place], [facility], [place]. tel:[phone] [facility], [address] [place] [address] [address], [place], [place], [address], [place] tel:[phone] [facility] No Information Apr-1 0-200 7 Amara Jasso. [address] , [address], [place], [facility], [place]. tel:[phone] [facility], [address] [place] [address] [address], [place], [place], [address], tel:[phone] [place] [address] No Information Mar-1 3-200 7 Amara Benavidezn. [address] , [address], [place], [facility], [place]. tel:[phone] [facility], [address] [place] [address] [address], [place], [place], [address], tel:[phone] [facility] No Information Mar-0 8-200 7 Amara Jasso. [address] , [address], [place], [facility], [place]. tel:[phone] [facility], [address] [place] [address] [address], [place], [place], [address], [place] tel:[phone] [facility] No Information Mar-0 7-200 7 Amara Benavidezn. [address] , [address], [place], [facility], [place]. tel:[phone] [facility], [address] [place] [address] [address], [place], [place], [address], [place] tel:[phone] [facility] No Information Mar-0 1-200 7 Amara Benavidezn. [address] , [address], [place], [facility], [place]. tel:[phone] Referring Provider: Louisa Amaro, [address], [place], [facility]. tel:[phone] Family History Family Member Type Diagnosis Age At Onset No Information Payers Payer name Insurance type Covered alliance party ID Adalberto bernard(s) AARP Medicare Complete CI [id number] Social History Type Description Quantity Date Captured Comments Sex Female Smoking Status No Information Chief Complaint And Reason For Visit No Information Reason For Referral Reason For Referral No Information Plan Of Treatment Date Type Action Status Referral [place] [address] [place], [id number] Ordered: Referrals: Ophthalmology. Diego Butler MD. Evaluate and treat ordered Referral Referred To: Yunier Rodrigues [address] [place], [place], [id number] Ordered: Referrals: Allopathic & Osteopathic Physicians : Ophthalmology. Yunier Rodrigues. Evaluate and treat ordered Referral Ordered: David Neal MD -Allopathic & Osteopathic Physicians : Ophthalmology (related to Type 2 diab with mod nonp rtnop with macular edema, r eye) ordered Referral Referred To: David Neal MD [address]
[place], [place], [phone] Ordered: Referrals: Allopathic & Osteopathic Physicians : [...] Denise qd OU last used @ 10pm, Alekto sent refills to pts pharm today. Patient [...]
--- OUTSIDE RECORDS SUMMARY | 2024-11-27 07:43 | XMS_ITS | Clinical Summary ---
Author Organization [facility] Address [facility] [place] [address] Care Team Providers Care Occupational Analyst Name Role Phone Carlton Clark MD Unavailable [phone] Nate Clinton MD Primary Care Provider [phone] Allergies No known active allergies Medications latanoprost [...] times a day 60 tablet 11 4 Active losartan (COZAAR) 25 mg tablet Take 1 tablet (25 mg total) by mouth daily 30 tablet 11 4 12/07/19 25 Active Additional Information Patient not taking.Reported on 11/20/2024 clopidogreL (PLAVIX) 75 mg tablet Take 1 tablet by mouth once daily 90 tablet Active Active Problems Problem Noted Date Diagnosed [...] or end stage renal disease(404.13) 08/23/2023 08/23/2023 Encounters Date Type Department Care Team Description 11/20/2024 10:45 AM CDT Office Visit [facility] Director Pediatric at [address] [place] [phone] Wilma Xiao NP S/P TAVR (transcatheter aortic valve replacement) (Primary Dx); Primary hypertension; Mixed hyperlipidemia; Stage 3a chronic kidney disease (HCC) 11/16/2024 Results Follow-Up [facility] Director Pediatric at [address] [place] [phone] Naga Wilks MA Transthoracic Echo (TTE) Complete W Doppler/CF 11/15/2024 9:35 AM CDT Lab [address] [phone] 11/15/2024 9:33 AM CDT - 11/15/2024 11:59 PM CDT Hospital Encounter [facility] [address] [place] [phone] S/P TAVR (transcatheter aortic valve replacement) Discharge Disposition: Discharge to home or self care from Last 3 Months Surgical History Surgery Date Site/Laterality Comments CATARACT [...] on file Legal Sex 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 Gender Identity Not on file Sexual Orientation Not on file Obstetrics History Last Filed Vital Signs Vital Sign Reading Time Taken Comments Blood Pressure 99/65 11/20/2024 11:02 AM CDT Pulse 96 11/20/2024 11:02 AM CDT Temperature 37 C (98.6 F) 09/30/2023 8:04 AM CDT Respiratory Rate 18 11/20/2024 11:02 AM CDT Oxygen Saturation 94% 09/30/2023 8:04 AM CDT Inhaled Oxygen Concentration - - Weight 64.4 kg (142 lb) 11/20/2024 11:02 AM CDT Height 157.5 cm (5' 2) 11/20/2024 11:02 AM CDT Body Mass Index 25.97 11/20/2024 11:02 AM CDT Plan of Treatment Health Maintenance Due Date Last Done Comments Depression Screening 1940 Osteoporosis Screening-Bone Density Scan 1940 Dilated Eye Exam 1940 Foot Exam 1940 Lipid Panel 1940 DTaP/Tdap/Td Vaccine (1 - Tdap) 11/25/1950 Hepatitis B Screening 11/25/1957 Pneumococcal vaccine 65+ (1 of 2 - PCV) 11/25/1958 Zoster Vaccine (1 of 2) 11/25/1989 Well Visit 65+ 11/25/2004 Fall Risk Assessment 09/29/2024 09/30/2023 Influenza Vaccine (#1) 2024 Hemoglobin A1C 05/15/2025 11/15/2024, 09/27/2023 Albumin Creatinine Ratio, Urine 11/15/2025 eGFR 11/15/2025 11/15/2024, 08/0 03/2023, 09/27/2023 Medical Devices Implanted Type Area Dimmer Board Operator Device Identifier Shelf Expiration Date Model / Serial / Lot [employer] V[employer] System Closure Repair Femoral Artery Suture Mediated Perclose Prostyle 39719-45 - [id number] Implanted:Qty: 1 on 09/29/2023 by Carlton Clark MD at [facility] 06/28/2025 [id number] / / [id number] [employer] System Closure Repair Femoral Artery Suture Mediated Perclose Prostyle 22943-35 - [id number] Implanted:Qty: 1 on 09/29/2023 by Carlton Clark MD at [facility] [employer] 06/28/2025 [id number] / / [id number] [employer] Valve Heart 23mm Keenan 3 Transcatheter [id number] - [id number] Implanted:Qty: 1 on 09/29/2023 by Carlton Clark MD at [facility] [employer] [id number] / / Aguilar Vascular System Closure Repair Femoral Artery Suture Mediated Perclose Prostyle 44482-73 - [id number] Implanted:Qty: 1 on 09/29/2023 by Carlton Clark MD at [facility] 06/28/2025 [id number] / / [id number] Procedures Procedure Name Priority Date/Time Associated Diagnosis Comments TRANSTHORACIC ECHO (TTE) COMPLETE W DOPPLER/CF WO CONTRAST Routine 11/15/2024 10:40 AM CDT S/P TAVR (transcatheter aortic valve replacement) EGFR Routine 11/15/2024 9:41 AM CDT COMPREHENSIVE METABOLIC PANEL Routine 11/15/2024 9:41 AM CDT MAGNESIUM Routine 11/15/2024 9:41 AM CDT AMYLASE Routine 11/15/2024 9:41 AM CDT LIPASE Routine 11/15/2024 9:41 AM CDT HEMOGLOBIN A1C Routine 11/15/2024 9:41 AM CDT ALBUMIN CREATININE RATIO, URINE Routine 11/15/2024 9:11 AM CDT from Last 3 Months Results * TRANSTHORACIC ECHO (TTE) COMPLETE W DOPPLER/CF WO CONTRAST (11/15/2024 10:40 AM CDT) Estimated EF 70 % CONS SCIMAGE Anatomical Region Laterality Modality Ultrasound 11/15/2024 10:1 5 AM CDT Narrative 11/15/2024 1:02 PM CDT [address] [address] Echocardiogram Report Patient Name: POONAM AGUSTIN : 1940 Study Date: 11/15/2024 10:15:02 AM Sex: F Tech: JENNIFER Location: Echo Lab 1 Ref Provider: CARLTON CLARK Height(Cm): BSA: Weight(Kg): Quality: Adequate Order Provider: CARLTON CLARK PROCEDURES: Echocardiographic Report: Transthoracic echocardiogram with complete 2D, M-Mode, and color Doppler examination. INDICATIONS: TAVR and Z95.2 Presence of prosthetic heart valve. MEASUREMENTS: 2D/MM Value Range Doppler Value Range EF Teich MM 64.7 % [ 54.0 - 74.0 ] MARK Vmax 1.96 cm2 Estimated EF 70 % AV Mean PG 9 mmHg LVIDd MM 5.08 cm [ 3.80 - 5.20 ] AV Peak Cecil 2.02 m/s [ 1.00 - 1.70 ] LVIDs MM 3.27 cm [ 2.20 - 3.50 ] AV VTI 51.40 cm LVPWd MM 1.41 cm [ 0.60 - 0.90 ] LVOT Diam 2.31 cm IVSd MM 1.02 cm [ 0.60 - 0.90 ] LVOT Peak Cecil 0.95 m/s [ 0.70 - 1.10 ] LA Dimension MM 3.35 cm [ 2.70 - 3.80 ] LVOT VTI 24.95 cm AoR Diam MM 2.70 cm [ 2.70 - 3.70 ] MV E Peak Cecil 1.02 m/s [ 0.60 - 1.30 ] MV A Peak Cecil 1.50 m/s [ 1.00 - 1.20 ] MV Mean PG 3 mmHg MV PHT 95 msec [ 20 - 100 ] MVA 2.30 MV Decel Time 326 msec [ 104 - 258 ] PV Peak Cecil 0.99 m/s [ 0.40 - 0.80 ] TR Peak Cecil 1.78 m/s [ 1.00 - 2.80 ] TR Peak PG 13 mmHg RVSP 21.00 mmHg [ 10.00 - 36.00 ] E` 0.05 m/s E/E` 21.89 [ <= 10.00 ] PA Pressure 21.00 mmHg [ 10.00 - 36.00 ] 2D/MM Value Range Doppler Value Range - FINDINGS: Atrial Septum: Normal atrial septum. Left Ventricle: Normal left ventricular size. Mild concentric left ventricular hypertrophy. Hyperdynamic left ventricular function. No focal wall motion abnormalities. Impaired diastolic relaxation Grade I. Ejection Fraction is estimated to be 70 %. Left Atrium: The left atrium is normal in size. Right Ventricle: Normal right ventricular size. Normal right ventricular systolic function. Right Atrium: The right atrium is normal in size. Aortic Valve: No evidence of hemodynamically significant aortic stenosis by Doppler. Aortic cusps appear mildly sclerotic. Gradients normal for valve type and size. Normal appearing aortic valve bioprosthesis. Mitral Valve: Mitral valve leaflets appear mildly thickened. Mild mitral annular calcification. Trivial regurgitation of the mitral valve. Pulmonic Valve: Normal structure of the pulmonic valve. No evidence of pulmonic regurgitation. Tricuspid Valve: Normal structure of the tricuspid valve. Normal right ventricular systolic pressure. Trivial regurgitation in the tricuspid valve. Pericardium: Normal pericardium with no significant pericardial effusion. Aorta: There is mild atherosclerosis in the aortic root. IVC: The IVC is not well visualized. Pulmonary Artery: Pulmonary artery not well visualized. CONCLUSIONS: Normal left ventricular size. Mild concentric left ventricular hypertrophy. Hyperdynamic left ventricular function. No focal wall motion abnormalities. Impaired diastolic relaxation Grade I. Ejection Fraction is estimated to be 70 %. Normal right ventricular size. Normal right ventricular systolic function. Mitral valve leaflets appear mildly thickened. Mild mitral annular calcification. Trivial regurgitation of the mitral valve. No evidence of hemodynamically significant aortic stenosis by Doppler. Aortic cusps appear mildly sclerotic. Gradients normal for valve type and size. Normal appearing aortic valve bioprosthesis. Normal structure of the tricuspid valve. Normal right ventricular systolic pressure. Trivial regurgitation in the tricuspid valve. Normal pericardium with no significant pericardial effusion. Technically difficult study with limited views. Subcostal views not available. Electronically Signed By: Adelia Borden MD 11/15/2024 1:02:19 PM CDT Procedure Note Adelia Borden MD - 11/15/[address] [address] Echocardiogram Report Patient Name: POONAM AGUSTIN : 1940 Study Date: 11/15/2024 10:15:02 AM Sex: F Tech: JENNIFER Location: Echo Lab 1 Ref Provider: CARLTON CLARK Height(Cm): BSA: Weight(Kg): Quality: Adequate Order Provider: CARLTON CLARK PROCEDURES: Echocardiographic Report: Transthoracic echocardiogram with complete 2D, M-Mode, and color Dopplerexamination. INDICATIONS: TAVR and Z95.2 Presence of prosthetic heart valve. MEASUREMENTS: 2D/MM Value Range Doppler ValueRange EF Teich MM 64.7 % [ 54.0 - 74.0 ] MARK Vmax 1.96cm2 Estimated EF 70 % AV Mean PG 9 mmHg LVIDd MM 5.08 cm [ 3.80 - 5.20 ] AV Peak Cecil 2.02 m/s[ 1.00 - 1.70 ] LVIDs MM 3.27 cm [ 2.20 - 3.50 ] AV VTI 51.40cm LVPWd MM 1.41 cm [ 0.60 - 0.90 ] LVOT Diam 2.31cm IVSd MM 1.02 cm [ 0.60 - 0.90 ] LVOT Peak Cecil 0.95 m/s[ 0.70 - 1.10 ] LA Dimension MM 3.35 cm [ 2.70 - 3.80 ] LVOT VTI 24.95cm AoR Diam MM 2.70 cm [ 2.70 - 3.70 ] MV E Peak Cecil 1.02 m/s[ 0.60 - 1.30 ] MV A Peak Cecil 1.50 m/s [ 1.00 - 1.20 ] MV Mean PG 3 mmHg MV PHT 95 msec [ 20 - 100 ] MVA 2.30 MV Decel Time 326 msec [ 104 - 258 ] PV Peak Cecil 0.99 m/s [ 0.40 - 0.80 ] TR Peak Cecil 1.78 m/s [ 1.00 - 2.80 ] TR Peak PG 13 mmHg RVSP 21.00 mmHg [ 10.00 - 36.00 ] E` 0.05 m/s E/E` 21.89 [ <= 10.00 ] PA Pressure 21.00 mmHg [ 10.00 - 36.00 ] 2D/MM Value Range Doppler ValueRange - FINDINGS: Atrial Septum: Normal atrial septum. Left Ventricle: Normal left ventricular size. Mild concentric left ventricularhypertrophy. Hyperdynamic left ventricular function. No focal wall motion abnormalities. Impaireddiastolic relaxation Grade I. Ejection Fraction is estimated to be 70 %. Left Atrium: The left atrium is normal in size. Right Ventricle: Normal right ventricular size. Normal right ventricular systolicfunction. Right Atrium: The right atrium is normal in size. Aortic Valve: No evidence of hemodynamically significant aortic stenosis by Doppler.Aortic cusps appear mildly sclerotic. Gradients normal for valve type and size. Normalappearing aortic valve bioprosthesis. Mitral Valve: Mitral valve leaflets appear mildly thickened. Mild mitral annularcalcification. Trivial regurgitation of the mitral valve. Pulmonic Valve: Normal structure of the pulmonic valve. No evidence of pulmonicregurgitation. Tricuspid Valve: Normal structure of the tricuspid valve. Normal right ventricular systolicpressure. Trivial regurgitation in the tricuspid valve. Pericardium: Normal pericardium with no significant pericardial effusion. Aorta: There is mild atherosclerosis in the aortic root. IVC: The IVC is not well visualized. Pulmonary Artery: Pulmonary artery not well visualized. CONCLUSIONS: Normal left ventricular size. Mild concentric left ventricularhypertrophy. Hyperdynamic left ventricular function. No focal wall motion abnormalities. Impaireddiastolic relaxation Grade I. Ejection Fraction is estimated to be 70 %. Normal right ventricular size. Normal right ventricular systolicfunction. Mitral valve leaflets appear mildly thickened. Mild mitral annularcalcification. Trivial regurgitation of the mitral valve. No evidence of hemodynamically significant aortic stenosis by Doppler.Aortic cusps appear mildly sclerotic. Gradients normal for valve type and size. Normalappearing aortic valve bioprosthesis. Normal structure of the tricuspid valve. Normal right ventricular systolicpressure. Trivial regurgitation in the tricuspid valve. Normal pericardium with no significant pericardial effusion. Technically difficult study with limited views. Subcostal views notavailable. Electronically Signed By: Adelia Borden MD 11/15/2024 1:02:19 PM CDT us Carlton Clark MD CV ECHO PROCEDURES Final Result * (ABNORMAL) eGFR (11/15/2024 9:41 AM CDT) eGFR 56(L) >=60 mL/min/1. 73 m2 Comment: Interpretive Data [...] interpretive data was last reviewed 2020. Blood 11/15/2024 9:41 AM CDT 11/15/2024 10:18 AM CDT Kim Small POSTDOCTORAL SCIENTIST LAB BLOOD ORDERABLES Final Result [facility] [place] [address] * Magnesium (11/15/2024 9:41 AM CDT) Magnesium 1.5 1.4 - 2.5 mg/dL [facility] ([place]) Blood 11/15/2024 9:41 AM CDT 11/15/2024 10:18 AM CDT Kim Small POSTDOCTORAL SCIENTIST LAB BLOOD ORDERABLES Final Result [facility] [place] [address] * (ABNORMAL) Lipase (11/15/2024 9:41 AM CDT) Lipase 173(H) 10 - 99 Units/L [facility] ([place]) Blood 11/15/2024 9:41 AM CDT 11/15/2024 10:18 AM CDT Kim Small POSTDOCTORAL SCIENTIST LAB BLOOD ORDERABLES Final Result [facility] ([place]) [address] [place] [address] * (ABNORMAL) Hemoglobin A1c (11/15/2024 9:41 AM CDT) Hgb A1C 6.1(H) 4.0 - 5.6 % [facility] ([place]) Estimated Average Glucose 128 mg/dL [facility] ([place]) Comment: The ADA recommends reporting an estimated Average Glucose (eAG) with all Hemoglobin A1c results using the equation derived from a study of 507 normal and diabetic adults. Minority populations were underrepresented and children were not included. (Diabetes Care 31:5437-2551, 2008). The eAG is not equivalent to a fasting glucose. Testing performed by: [facility], [facility], [place], [address] Blood 11/15/2024 9:41 AM CDT 11/15/2024 10:18 AM CDT Kim Small POSTDOCTORAL SCIENTIST LAB BLOOD ORDERABLES Final Result Performing Organization Address [facility] Co de Phone Number [facility] ([place]) [address] [place] [address] * (ABNORMAL) Amylase (11/15/2024 9:41 AM CDT) Amylase 174(H) 30 - 99 Units/L [facility] ([place]) Blood 11/15/2024 9:41 AM CDT 11/15/2024 10:18 AM CDT Kim Small POSTDOCTORAL SCIENTIST LAB BLOOD ORDERABLES Final Result [facility] ([place]) [address] [place] [address] * Comprehensive metabolic panel (11/15/2024 9:41 AM CDT) Sodium 141 135 - 145 mmol/L [facility] ([place]) Potassium, pl 4.4 3.3 - 4.9 mmol/L [facility] ([place]) Chloride 105 97 - 110 mmol/L [facility] ([place]) CO2 22 22 - 32 mmol/L [facility] ([place]) Anion gap 14 2 - 15 mmol/L [facility] ([place]) BUN 21 6 - 25 mg/dL [facility] ([place]) Creatinine 0.99 0.60 - 1.10 mg/dL [facility] ([place]) Glucose 130 70 - 199 mg/dL [facility] ([place]) Comment: Interpretive Data Fasting glucose >/= 126 mg/dl is diagnostic for diabetes. Fasting is defined as no caloric intake for at least 8 hours. Fasting glucose between 100 mg/dl to 125 mg/dl is diagnostic of prediabetes. In a patient with classic symptoms of hyperglycemia or hyperglycemic crisis, a random glucose >/= 200 mg/dl is diagnostic for diabetes. In the absence of unequivocal hyperglycemia, results should be confirmed by repeat testing. The classification and Diagnosis of Diabetes Diabetes Care 2021; 46: S19-S40. Current interpretive data was last revised 2022. Calcium 10.2 8.5 - 10.3 mg/dL [facility] ([place]) Bilirubin, total 0.3 0.1 - 1.2 mg/dL [facility] ([place]) Protein, pl 6.9 6.5 - 8.5 g/dL [facility] ([place]) Albumin 4.3 3.5 - 5.0 g/dL [facility] ([place]) Alk phos 61 40 - 130 Units/L [facility] ([place]) ALT 9 7 - 45 Units/L [facility] ([place]) AST 17 10 - 45 Units/L [facility] ([place]) Blood 11/15/2024 9:41 AM CDT 11/15/2024 10:18 AM CDT Kim Small POSTDOCTORAL SCIENTIST LAB BLOOD ORDERABLES Final Result [facility] ([place]) [facility] [place] [address] * Albumin Creatinine Ratio, Urine (11/15/2024 9:11 AM CDT) Albumin Ur <12.0 mg/L Comment: Interpretive Data No reference range established. Current interpretive data was last revised 2018. Testing performed by: [facility], [address] [place] [address]., [id number] Creatinine Ur 83.0 mg/dL [facility] ([place]) Comment: Interpretive Data No reference range established. Current interpretive data was last revised 2018. Testing performed by: [facility], [address] [place] [address]., [id number] Albumin Creatinine Ratio, Ur <14 1 - 29 mg/g [facility] ([place]) Comment:Testing performed by : [address] [address] Urine 11/15/2024 9:11 AM CDT 11/15/2024 11:54 AM CDT Kim Small NP LAB URINE ORDERABLES Final Result Performing Organization Address City/[facility]/ZIP Co de Phone Number [facility] ([place]) [address] [facility] [place] [address] from Last 3 Months Insurance [facility] MEDICARE ADVANTAGE [facility] Address: [facility] [address] [place] [address] [facility] Address: [place] [id number] [place] [id number] [facility] MEDICARE ADVANTAGE [facility] Address: [place] [address] Care Teams Occupational Analyst Relationship Specialty Start Date End Date Nate Clinton MD PCP - General Family Practice 10/05/23 Carlton Clark MD Paper Bundler Cardiology 10/01/23
--- OUTSIDE RECORDS SUMMARY | 2024-11-27 07:44 | XMS_ITS | Encounter Summary ---
Author Organization [facility] Address [address] [place] [address] Care Team Providers Care Community Sports Coordinator Name Role Phone Carlton Clark MD Unavailable [phone] Nate Clinton MD Primary Care Provider [phone] Encounter Details Date Type Department Care Team (Latest Contact Info) Description 11/16/2024 Results Follow-Up [place] Interviewing Clerk at [address] [place] [address] Naga Wilks MA Transthoracic Echo (TTE) Complete W Doppler/CF Social History Tobacco Use Types Packs/Day Years Used Date Smoking Tobacco: Never Passive Smoke Exposure: Past Smokeless Tobacco: Never AUDIT-C Answer Date Recorded Q1: How often [...] on file Legal Sex Female 3:33 AM [employer] Gender Identity Not on file Sexual Orientation Not on file documented as of this encounter Plan of Treatment Not on file documented as of this encounter Visit Diagnoses Not on filedocumented in this encounter Care Teams Community Sports Coordinator Relationship Specialty Start Date End Date Nate Clinton MD PCP - General Family Practice 10/05/23 Carlton Clark MD Physical Therapy Professor Cardiology 10/01/23 documented as of this encounter
== END 2024-11-27 07:41 | disposition home or self-care (01) ==
LOC: ANHAUDASC 07:41
PROVIDERS: PCP Family Medicine; Visit Provider Family Medicine
DX: H90.3 Sensorineural hearing loss, bilateral (principal)
CPT/HCPCS: 92557; 92567